=== PATIENT | male | born 1940 | race Caucasian/White ===

== ENCOUNTER 2018-04-11 17:39 | Inpatient (IN) | payer MEDICAID, SELFPAY ==
--- NOTE | 2018-04-11 19:08 | NUR.NOTE ---
Addendum entered by Shahida Page 04/11/18 19:24: This nurse notified BARRETT Mac, no new orders. Pt was showered. This nurse spoke with infection control who said to monitor for loose stools. Nursing medical billing supervisor was notified. Original Note: Nursing Note: Patient found in an enteric contact precautions bathroom. This nurse asked patient to exit room, which he did. Patient was assisted to wash hands with soap and water and door to precautions room was closed shut.
[2018-04-11 19:30] VITALS: BP 146/82; PULSE 59; RESP 20; TEMP 36.5; O2SAT 98
[2018-04-11 23:59] VITALS: BP 165/82; PULSE 53; RESP 17; TEMP 36.1; O2SAT 98
--- NOTE | 2018-04-12 06:51 | NUR.NOTE ---
Nursing Not 04/12/18 06:30 patient attempted to leave on elevator, stating he wants to go across the street to [facility] and rehab. You can not keep me against my will, I feel like I'm in half-way. Explained to patient he would need to talk to the doctors and care management. Patient agreed to go back to his room stating that he will be leaving today
--- NOTE | 2018-04-12 07:28 | HPE_ITS ---
ADMISSION TO SWING BED Estefania Cohen NP - Working with Dr. Hale. REASON FOR ADMISSION Dementia, inability to care for self. ASSESSMENT AND PLAN 1. 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 He is currently not capacity to leave the hospital at this time, this was reinforced by aguila carpenter's consultation. Will continue aspirin 81 mg for the vascular component of the dementia. B12 is normal. We have initia ping thiamine; this will be continued on swing bed status. 2. Hypertension. He was initially started on lisinopril. His previous record indicates that he was on amlodipine in the past. We have re- initiated the amlodipine. Will continue to monitor his blood p ressures. 3. History of tobacco abuse with probable COPD with hyperinflated lungs on chest x-ray. Will contin ue nicotine replacement. 4. Past medical history states BPH. Continue to monitor for any urinary symptoms or urinary retenti on. DISPOSITION He is a full code. Given that he does not have the capacity to make decisions about leaving the [facility], we will have Care Management work on obtaining emergency guardianship. In the longer, term, he will need placement at a long-term care facility for his safety. Care management is working on [facility]. HOSPITAL COURSE Mr. Rosenberg is a 78-year-old male with history of hypertension, hypercholesterolemia, peripheral vas cular disease, benign prostatic hypertrophy, chronic obstructive pulmonary disease and memory impairm ent, who presented to the Emergency Department two days ago on 04/09/2018 after being referred by a co unselor who had concerns about possible suicidal ideation. By the time Mr. Rosenberg presented to the Emergency Department, he did not recall the conversations or statements related to suicidal ideation . In fact, he did not recall the name of the counselor that he was seeing prior to coming into the Em ergency Department. There were concerns in the Emergency Room about his competency. He apparently edwards d been living with a female who is helping him at home, but she has since placed a restraining order on him. It is unclear what occurred for the restraining order to be placed. However, there were con cerns about his mental capacity and ability to make decisions. Neurology was consulted, Dr. Bueno felt that he most likely had Alzheimer's dementia, plus or minus vascular dementia. She notes that he was clearly not suffering from a delirium or encephalopathy at the time of her exam. She recommen ded a psychiatry consult to determine competency and agreed with aspirin 81 mg daily for vascular dem entia component, as well as a thiamine supplementation for what appears to be malnutrition. She did n ot recommended Aricept at the present time due to both bradycardia and lack of predatory animal exterminator plans. She will followup as needed. Psychiatry was consulted. Dr. Monica Grider saw the patient today and her assessment was that the patient does not have the capacity to leave against medical advice, which he has threatened to do be cause he does not have the ability to understand his cognitive impairments and has poor understanding and judgment of where to go or how to care for himself should he leave, which would put him at risk for unintentional harm to himself or others. He has been wondering on the floor. He has shown attempts to leave the floor by elevator. The plan sh ould be to re-direct him through verbal instruction and distraction and physical restraint if indicat ed to prevent him from leaving the floor if all other interventions prove ineffective to keeping him from leaving. It is felt that he does not have evidence of delirium affecting his mental status. Her recommendation is that he would be well served with placement in a long-term care facility and given his tendency to wander; he may need to be in a locked facility. Due to an inability to place him at a facility today, he is instead transitioned to a swing bed 2 status where he will be monitored and k ept safe until he transitioned to a long-term care facility. He has had some hypertension while he has been here at the hospital, and he was started on lisinopril initially. His records from his primary care provider, Dr. Giuseppe Daniel indicate that he as previo usly on amlodipine, this has been restarted. He also reports being a current smoker and has requested nicotine replacement. This has been ordered . Care management is working on placement options, as well as emergency guardianship through the [facility] system. Apparently, there are some legal issues as well for Mr. Rosenberg, as he has a court date t his Monday on 04/13/2018. This maybe in relation to his restraining order that has been placed by the female that he previously resided with. It is unclear what the situation is that required a restrai tammy order to be placed initially. He is unable to provide this information as well as the rest of hi s history accurately. SIGNIFICANT TEST RESULTS BUN mildly elevated at 23, glucose elevated on admission 157, calcium low at 8.4. total protein low a t 6.3, albumin low at 3.3, vitamin B12 was normal at 441. TSH was 6.29, but free T4 was within obdulio l limits at 0.91. His troponin was less than 0.02 on admission. White blood cell count 5.02, red blood cells 4.15, hemoglobin 13.8, hematocrit 41, platelet count 136 . URINALYSIS - His urinalysis was not suspicious for infection on admission. He did have a chest x-ray, which showed no acute abnormality. His lungs were mildly hyperinflated. He did have a head CT on admission, which was negative for acute process. 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 CHRONIC Hypertension. Hypercholesterolemia. Peripheral vascular disease. Benign prostatic hypertrophy. Chronic obstructive pulmonary disease. Memory impairment as listed on his PCP problem list. MEDICATIONS Acetaminophen 325 to 650 mg p.o. q. 4 hours p.r.n. Proventil updraft 2.5 mg updraft q. 2 hours p.r.n. Amlodipine 5 mg p.o. daily. Aspirin 81 mg p.o. daily. Lisinopril 5 mg p.o. daily. Multivitamin with mineral 1 tablet p.o. daily. Nicotrol 10 mg inhaled q. 2 hours p.r.n. NicoDerm CQ 14 mg transdermal daily. MiraLax 17 grams p.o. daily p.r.n. Thiamine 100 mg p.o. daily. REVIEW OF SYSTEMS HEENT - Denies any visual change. He denies any upper respiratory symptoms. No difficulty swallowing . No sore throat. RESPIRATORY - He does have a mild nonproductive chronic cough. He denies shortness of breath or wheez ing. CARDIAC - He denies chest pain, or pressure. No palpitations. GASTROINTESTINAL - He denies abdominal pain or change in his bowel pattern. GENITOURINARY - He denies dysuria, hematuria or incontinence. EXTREMITIES - He denies stiffness or swelling to his joints. No pain. SKIN - He denies any rash or significant lesions. SOCIAL HISTORY He does endorse a tobacco use history. He denies alcohol abuse or drug abuse. PHYSICAL EXAMINATION GENERAL - He does appear older than his stated age. He is pleasant and cooperative. He is in no acute distress. He knows he is in [facility]. He is unable to state the correct date of . He states [birth year] for a birthday. He gives his name properly. He is unclear on the date, inclu ding the month or time of year. HEENT - Pupils are equal, round and reactive to light. He has dentures. No oral lesions. NECK - Neck is supple without lymphadenopathy. No JVD. RESPIRATORY - Respirations are even and unlabored. Lung sounds are clear to auscultation throughout. No rales or wheezes noted. CARDIOVASCULAR - His heart has a regular rate and rhythm with no murmur appreciated. ABDOMEN - Abdomen is thin. He appears malnourished. There is no tenderness on palpation. No masses a ppreciated. Normoactive bowel sounds throughout. EXTREMITIES - Well perfused without clubbing, cyanosis or edema. He has faint pedal pulses bilaterall y. A slight tremor. His index finger on the left shows evidence of trauma, as well as a traumatic am putation of the distal phalanx of his left middle finger. NEUROLOGIC - He moves all four extremities equally. He ambulates freely and unassisted. Speech is chi ar and articulate. Estefania Cohen NP - This case was discussed with Dr. Hale who is in agreement.
[2018-04-12] MEDS: Nicotine 14 MG/24 HR PATCH TD (07:49)
[2018-04-12] MEDS: Lisinopril 5 MG TAB PO (07:50)
[2018-04-12] MEDS: Multivitamin w/Minerals TAB 1 TAB PO (07:50)
[2018-04-12] MEDS: Aspirin 81 MG CHEW PO (07:50)
[2018-04-12] MEDS: amLODIPine 5 MG TAB PO (07:50)
[2018-04-12] MEDS: Acetaminophen 325 MG TAB PO (07:50)
[2018-04-12] MEDS: Thiamine 100 MG TAB PO (07:50)
[2018-04-12 07:51] VITALS: BP 163/90; PULSE 60; RESP 18; TEMP 36.6; O2SAT 98
[2018-04-12] MEDS: Patch Removal 1 EACH TP (08:06)
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
[2018-04-12 11:30] VITALS: BP 107/87; PULSE 56; RESP 20; TEMP 36.5; O2SAT 97
--- NOTE | 2018-04-12 14:53 | PHARADMIT ---
Addendum entered by Shahida Boyd 09/09/18 11:54: VS okay, no labs one time dose of furosemide given (pt had some lower extremity edema per nursing report) transfer to correction tomorrow Original Note: Addendum entered by Shahida Boyd 09/08/18 10:35: No VS or labs no med changes transfer to correction Monday Original Note: Addendum entered by Shahida Boyd 09/07/18 12:13: HR-58 other VS okay, no labs weight-61.8(down) no med changes transfer to correction Monday Original Note: Addendum entered by Tyrel Norris III 09/06/18 11:44: VS-OK No Labs Plan is in place for Monday discharge. Original Note: Addendum entered by Alona Allan 09/05/18 15:10: No VS or labs no med changes Awaiting transfer to correction on 09/10 Original Note: Addendum entered by Shahida Boyd 09/04/18 11:22: VS okay, no labs no med changes Awaiting transfer to correction on 09/10 Original Note: Addendum entered by Shahida Boyd 09/03/18 09:00: No VS or labs no med changes Awaiting transfer to correction on 09/10 Original Note: Addendum entered by Tyrel Norris III 09/02/18 09:00: No -VS No Labs No changes Same Original Note: Addendum entered by Tyrel Norris III 09/01/18 08:59: VS-OK No Labs [facility] [place] on 09/10 Original Note: Addendum entered by Tyrel Norris III 08/31/18 11:40: VS-OK No Labs CM note that patient has been accepted and jarrod be discharge on Monday09/10/2018 Original Note: Addendum entered by Alona Allan 08/30/18 16:00: possible acceptance at facility no changes reported in morning meeting Original Note: Addendum entered by Tyrel Norris III 08/29/18 10:08: No VS, No labs, No Changes CM noted that there is a meeting today with outside facility Original Note: Addendum entered by Tyrel Norris III 08/28/18 11:57: vs_ok no Labs No changes Original Note: Addendum entered by Tyrel Norris III 08/24/18 11:59: VS-OK, No Labs No Changes Original Note: Addendum entered by Tyrel Norris III 08/23/18 15:27: Patient was more difficult yesterday per nursing. VS-OK No Labs No Changes Original Note: Addendum entered by Tyrel Norris III 08/21/18 17:12: VS-OK No Labs No changes Original Note: Addendum entered by Tyrel Norris III 08/20/18 09:52: No VS today Wgt-62.1 kg no changes No Labs Original Note: Addendum entered by Tyrel Alamo Norris [employer] 08/17/18 13:12: VS-OK No Labs No changes CM noted that the Budget process could take up to a month Original Note: Addendum entered by Tyrel Alamo Norrisrita BURT 08/16/18 13:21: VS-OK No Labs No changes Original Note: Addendum entered by Tyrel Alamo Norrisrita BURT 08/15/18 13:24: vS-OK HR-60 No Labs, No med changes Original Note: Addendum entered by Shahida Boyd 08/14/18 12:12: HR-54 other VS okay, no labs no med changes waiting for budget for [facility] to be approved Original Note: Addendum entered by Shahida Boyd 08/13/18 12:21: VS okay, no labs no med changes, flu vaccine given yesterday waiting to hear back about placement to [facility] home Original Note: Addendum entered by Shahida Boyd 08/12/18 11:55: VS okay, no labs no med changes waiting to hear back about placement to [facility] Original Note: Addendum entered by Shahida Boyd 08/11/18 08:58: HR-48 other VS okay, no labs no med changes waiting to hear back about placement to [facility] home Original Note: Addendum entered by Alona Allan 08/09/18 11:17: nothing new per morning meeting vs ok, Original Note: Addendum entered by Alona Allan 08/08/18 10:00: adult correction visit went well awaiting their approval and then a budget needs to be approved which may take a few weeks no changes or issues reported in morning meeting Original Note: Addendum entered by Shahida Boyd 08/07/18 09:31: HR-96 other VS okay, no labs no med changes pt. to visit adult correction Original Note: Addendum entered by Shahida Boyd 08/06/18 15:28: HR-59 other VS okay, no labs no med changes pt. to visit adult correction Monday Original Note: Addendum entered by Tyrel Norris III 08/03/18 10:35: No VS, No Labs No med changes CM noted that patient will be visiting Adult detention on Monday. Original Note: Addendum entered by Tyrel Norris III 08/01/18 12:55: VS-OK No Labs No CHANGES Original Note: Addendum entered by Shahida Boyd 07/31/18 09:04: HR-57 other VS okay, no labs no med changes AFC provider to see afternoon Original Note: Addendum entered by Shahida Boyd 07/30/18 09:08: VS okay, no labs no med changes potential [facility] provider to see Original Note: Addendum entered by Tyrel Norris III 07/29/18 12:10: VS-OK No Labs No changes Original Note: Addendum entered by Tyrel Norris III 07/28/18 11:44: No VS No Labs No changes Original Note: Addendum entered by Tyrel Norris III 07/27/18 12:26: VS-OK No Labs No med changes Original Note: Addendum entered by Tyrel Norris III 07/26/18 11:39: VS-OK No Labs, No word from Pvt half-way Original Note: Addendum entered by Shahida Boyd 07/25/18 11:04: VS okay, no labs no med changes waiting to hear back about decision from correction Original Note: Addendum entered by Tyrel Norris III 07/23/18 10:34: VS-OK Same. detention visit today at 1:30 Original Note: Addendum entered by Alona Allan 07/22/18 11:18: nothing new reported in morning meeting No VS (yesterdays ok) No Labs Monday scheduled visit by a correction Original Note: Addendum entered by Tyrel Norris III 07/20/18 13:28: No VS No Labs CM report Monday visit by a correction corrected note Original Note: Addendum entered by Tyrel Norris III 07/20/18 13:25: Still restlessMD to increase Trazodone today. No VS No Labs CM report Monday visit by a correction. Original Note: Addendum entered by Tyrel Norris III 07/19/18 12:06: MD will write new note today. VS-OK No Labs No changes Wgt-60.7 kg Original Note: Addendum entered by Tyrel Norris III 07/18/18 15:00: No new MD note yet VS-OK No Labs No medication changes Original Note: Addendum entered by Tyrel Jasmeet [facility] 07/16/18 10:37: MD to transcribe new note today. No VS No Labs No med changes Original Note: Addendum entered by Shahida Boyd 07/15/18 09:46: nothing new per morning report HR-56 other VS okay, no labs no med changes Original Note: Addendum entered by Shahida Boyd 07/14/18 09:59: nothing new per morning report no VS or labs no med changes Original Note: Addendum entered by Alona Allan 07/13/18 17:01: going to court Monday for guardianship at 10:30 Original Note: Addendum entered by Alona Allan 07/12/18 16:11: nothing new per morning report vs ok no labs no med changes noted Original Note: Addendum entered by Shahida Boyd 07/11/18 09:01: nutrition consult yesterday noted good PO intake and a 15% weight gain in 3 months no VS or labs no med changes Original Note: Addendum entered by Shahida Boyd 07/10/18 10:54: nothing new per morning report no VS or labs no med changes Original Note: Addendum entered by Shahida Boyd 07/07/18 09:56: nothing new per morning report VS okay no labs no med changes Original Note: Addendum entered by Shahida Boyd 07/06/18 09:25: nothing new per morning report no VS or labs no med changes Original Note: Addendum entered by Tyrel Norris III 07/04/18 09:17: VS-OK No Labs Last BM 07/01 Taking meds as scheduled. No changes. CM still waiting on referrals. Original Note: Addendum entered by Tyrel Norris III 07/03/18 09:32: nothing new per report VS-ok, no labs Last BM 07/01 no med changes Original Note: Addendum entered by Shahida Boyd 07/02/18 10:36: nothing new per morning report VS okay, no labs no med changes Original Note: Addendum entered by Tyrel Norris III 07/01/18 12:37: No VS, No Labs, Wgt-61.3 kg SAT-93% No Changes Original Note: Addendum entered by Tyrel Norris III 06/30/18 11:21: VS-OK SATs-94% No changes Original Note: Addendum entered by Tyrel Norris III 06/29/18 11:21: RT & Nursing noted patients breathing has worsened. MD ordered prn DUONEBS, Symbicort & Spiriva. VS-OK SATs 93% No Labs Last BM 06/26 Original Note: Addendum entered by Tyrel Norris III 06/28/18 15:42: No new changes VS-OK No Labs Same Original Note: Addendum entered by Shahida Boyd 06/26/18 10:51: nothing new per morning report no VS or labs no med changes Original Note: Addendum entered by Shahida Boyd 06/25/18 09:00: VS okay, no labs no med changes Original Note: Addendum entered by Alona Allan 06/24/18 11:04: no changes per morning report vs ok, Original Note: Addendum entered by Tyrel Norris III 06/22/18 12:17: No VS No Labs No BM No Changes, nothing to report Original Note: Addendum entered by Tyrel Norris III 06/21/18 10:34: VS-OK No Labs, No BM No Changes Original Note: Addendum entered by Shahida Boyd 06/20/18 11:56: nothing new per morning report no VS or labs no med changes Original Note: Addendum entered by Shahida Boyd 06/19/18 09:54: nothing new per morning report no VS or labs no med changes Original Note: Addendum entered by Tyrel Norris III 06/18/18 09:39: Complained of abdominal pain < (nursing notes that patient drinks a lot of coffee ) MD has order nightly Protonox PO VS-OK No Labs. No change Original Note: Addendum entered by Shahida Boyd 06/17/18 09:28: nothing new per morning report VS okay, no labs weight-61.5(up) no med changes Original Note: Addendum entered by Shahiad Boyd 06/16/18 09:55: nothing new per morning report VS okay, no labs no med changes Original Note: Addendum entered by Tyrel Norris III 06/14/18 10:35: Financial piece is completed, CM working on placement. Referrals sent. VS-OK No Labs, No Med changes Original Note: Addendum entered by Tyrel Norris III 06/13/18 11:10: VS-OK No Labs Nothing new. No med changes Original Note: Addendum entered by Shahida Boyd 06/12/18 12:33: nothing new per morning report VS okay, no labs no med changes Original Note: Addendum entered by Shahida Boyd 06/11/18 08:43: nothing new per morning report VS okay, no labs no med changes Original Note: Addendum entered by Tyrel Norris III 06/10/18 10:28: Pataient transferred to Room MS.226 for better cadre coverage VS-OK No Labs No BM No Med changes. Original Note: Addendum entered by Tyrel Norris III 06/09/18 10:05: VS-OK No Labs. Last BM 06/05 No changes Original Note: Addendum entered by Tyrel Norris III 06/06/18 11:05: VS-OK No Labs BM yesterday No Changes Original Note: Addendum entered by Shahida Boyd 06/05/18 09:36: nothing new per morning report VS okay, no labs no med changes Original Note: Addendum entered by Shahida Boyd 06/04/18 10:04: nothing new per morning report HR-52 other VS okay, no labs no med changes Original Note: Addendum entered by Tyrel Norris III 06/03/18 10:02: VS-OK Wgt- 60.4 kg No changes, No BM Original Note: Addendum entered by Tyrel Norris III 06/02/18 12:13: No VS No Change, Last BM 08/08 Original Note: Addendum entered by Tyrel Norris III 06/01/18 10:22: VS-OK No Labs, No Changes Original Note: Addendum entered by Tyrel Norris III 05/31/18 09:52: No Changes, VS-OK BM yesterday Original Note: Addendum entered by Alona Allan 05/30/18 15:11: nothing new per morning meeting vs ok Original Note: Addendum entered by Shahida Boyd 05/29/18 16:07: pt. looked more fatigued today, weight is up (59.2). MD to see today VS okay, no labs no med changes so far, no MD note yet Original Note: Addendum entered by Shahida Boyd 05/28/18 11:50: nothing new per morning report VS okay, no labs no med changes Original Note: Addendum entered by Tyrel Norris III 05/25/18 08:49: CM report that [facility]ANCIAL PIECE OF THE PUZZLE. VS-OK No labs. No new changes. Original Note: Addendum entered by Tyrel Norris III 05/24/18 09:16: nothing new per morning report VS-OK No labs no med changes Original Note: Addendum entered by Shahida Boyd 05/23/18 10:34: nothing new per morning report no Vs or labs no med changes Original Note: Addendum entered by Shahida Boyd 05/22/18 10:19: nothing new per morning report hr-55 other VS okay no labs no BM since 05/16 no med changes Original Note: Addendum entered by Alona Allan 05/21/18 15:44: nothing new per morning report Original Note: Addendum entered by Shahida Boyd 05/20/18 10:21: nothing new per morning report HR-56 other VS-okay no labs no med changes no BM since 05/16 Original Note: Addendum entered by Shahida Boyd 05/19/18 11:41: nothing new per morning report VS-okay no labs no med changes Original Note: Addendum entered by Shahida Boyd 05/18/18 17:07: nothing new per morning report hr-53 other VS-okay no labs no med changes Original Note: Addendum entered by Jr BURTTyrel Jasmeet 05/17/18 08:18: Provider saw patient and gave a synopses of patients present situation in her note. Awaiting placement in Adult Care facility. CM working towards this goal. VS-OK No labs, No changes Original Note: Addendum entered by Jr BURTTyrel Jasmeet 05/16/18 11:35: MD to see patient today, write new note. No Cadre today,No VS. No changes. Last BM 05/14 Original Note: Addendum entered by Alona Allan 05/15/18 13:18: nothing new per morning report BM recorded yesterday Original Note: Addendum entered by Shahida Boyd 05/14/18 09:13: nothing new per morning report hr-54 other VS-okay no labs still no BM since the nursing aware, will ask MD if he wants to order some BM meds Original Note: Addendum entered by Tyrel Norris III 05/13/18 10:10: CM & Nursing have been able to coordinate letting patient get outside for some fresh air, without any difficulty getting him back in. VS-OK No Labs, No changes. Original Note: Addendum entered by Tyrel Norris III 05/12/18 11:25: VS-OK No Labs, Still no BM reported. CM working on discharge plan to [facility], and getting [facility] application in place. Original Note: Addendum entered by Tyrel Norris III 05/11/18 11:59: VS-OK No Labs, Last reported BM 05/07 No Changes Original Note: Addendum entered by Tyrel Norris III 05/09/18 14:30: VS-OK No Changes, No Labs, No BM noted since 05/07 No new information. Original Note: Addendum entered by Shahida Boyd 05/08/18 11:11: nothing new per morning report VS-okay no labs no med changes Original Note: Addendum entered by Shahida Boyd 05/07/18 08:48: nothing new per morning report HR-56 other VS-okay no labs no med changes waiting for placement Original Note: Addendum entered by Addis Estrada 05/05/18 12:40: VS-ok, no med changes, ambulates independently multiple loops takes his daily meds, Nicotine patch during the day awaiting placement Original Note: Addendum entered by Tyrel Norris III 05/04/18 11:20: VS-OK No Changes, No Labs, No BM noted since 05/02 No new information. Original Note: Addendum entered by Tyrel Norris III 05/03/18 09:30: VS-OK No Changes, No Labs No new information. Original Note: Addendum entered by Alona Allan 05/02/18 13:24: nothing new per morning report VS-okay no labs no med changes awaiting placement Original Note: Addendum entered by Shahida Boyd 04/30/18 09:18: nothing new per morning report VS-okay no labs no med changes so far today, did not ask for any changes regarding the nicotine patch (see Alona's note below) Original Note: Addendum entered by Alona Allan 04/29/18 09:50: vs ok guardian has been appointed nursing asked if there is a plan to stepdown nicotine dosage. pt has had 12 days on nicotine 14mg patch. per uptodate Longer duration (more than 8 to 10 weeks) of treatment with the nicotine patch may lead to improved smoking cessation rates. Generally, NRT is used until a patient feels that he or she has stabilized as a nonsmoker. The patch may be continued longer, even indefinitely if needed, as NRT is safer than continued smoking. NRT is often used for a longer period in patients with comorbid psychiatric illness or other substance use disorders did not ask for any changes at this time Original Note: Addendum entered by Tyrel Norris III 04/27/18 11:44: HR-56 VS-OK No Labs No changes Original Note: Addendum entered by Edwin Howe 04/26/18 15:54: Has been appointed guardian awaiting placement at [facility] Original Note: Addendum entered by Shahida Boyd 04/25/18 11:07: VS okay no labs no med changes Original Note: Addendum entered by Shahida Boyd 04/24/18 12:01: HR-55 other VS okay no labs no med changes Original Note: Addendum entered by Tyrel Norris III 04/23/18 10:41: HR-60 VS-OK No Labs BM yesterday No changes Original Note: Addendum entered by Shahida Boyd 04/22/18 10:20: HR-53 other VS okay no labs no med changes court meeting about guardianship on 04/24 per CM Original Note: Addendum entered by Jr BURTTyrel Jasmeet 04/18/18 11:29: HR-63 No Labs, Wgt- 54.2 kg BM-04/[address] regarding guardianship. No new note yet. Original Note: Addendum entered by Shahida Boyd 04/17/18 12:24: HR-55 other VS okay No Labs CM still working on guardianship; [facility] is reviewing client per note Pt. was discharged (on accident) then readmitted under the same account so some meds were reordered and the MD was going to look over the meds. Original Note: Addendum entered by Shahida Boyd 04/16/18 12:35: VS-okay No Labs No BMs recorded yet- nursing aware, some BM meds ordered PRN but not yet given No med changes so far CM still working on guardianship; [facility] is reviewing client per CM note Original Note: Addendum entered by Jr BURTTyrel Jasmeet 04/15/18 11:22: No Change CM working on guardianship issues so that he may be placed in the appropriate facility. Referral sent to [facility]. VS-OK No Labs.. No BMs recorded yet Original Note: Addendum entered by Tyrel Norris III 04/14/18 11:18: CM working on guardianship issues so that he may be placed in the appropriate facility. Referral sent to [facility]. VS-OK No Labs.. N BMs recorded yet Original Note: Addendum entered by Alona Allan 04/12/18 14:54: now swingbed CM states pt may be difficult to place pt needs cadre nicotine replacement and bp meds ordered Original Note: Pharmacy Note Subjective Neuro consult shows Alzheimer's dementia but no delirium or encephalopathy. Psych consult to determine if patient is competent to make own decisions. Patient's hsitory is vague as there is little information available. Objective VS-OK No Labs No BM yet Assessment MD holding Home Aricept (per Neurology), Finasteride, Flomax & Pletal. Thiamine started. Plan CM finding placement difficult at this time. Original Note: Admission Pharmacy Clinical Review ALTERED MENTAL STATUS Code Status Full Code Current Weight Wgt- 63.5 kg Renally Cleared and Narrow Therapeutic Index Meds CrCl~ 46.6 mL/min Meds-OK QTc Value / Action Taken QTc- 442 na BP Control, Fever BP- 154/72 Tmax- 37.0C Electrolytes reviewed Na- 142 K+3.7 DVT Prophylaxis ASA Opiate Usage / Scheduled Bowel Regimen Ordered No Yes Plt/SCr for Heparin / Enoxaparin Plts-136 SCr-1.21 INR for Warfarin na H/H stable, WBC/Bands H&H- 13.8/41.0 WBC- 5.02 Antibiotic appropriateness none Cultures and Sensitivities none Surgical ABX d/c within 24 hr na DM control / Insulin Dosing BG-157 Heart Failure (Check EF%) (JEFF's, B-Block, Diuretics) Lisinopril, IV to PO Switch No Home Meds Reviewed Yes Home Meds Not Ordered Pletal, Finasteride, Aricept, Norvasc, Zocor, Anoro-Ellipta Inh, Flomax Comments
[2018-04-13 00:52] VITALS: BP 107/87; PULSE 56; RESP 20; TEMP 36.5; O2SAT 97
[2018-04-13 09:36] VITALS: BP 126/72; PULSE 62; RESP 20; TEMP 35.7; O2SAT 98
[2018-04-13] MEDS: Multivitamin w/Minerals TAB 1 TAB PO (09:41)
[2018-04-13] MEDS: Nicotine 14 MG/24 HR PATCH TD (09:41)
[2018-04-13] MEDS: Thiamine 100 MG TAB PO (09:41)
[2018-04-13] MEDS: Aspirin 81 MG CHEW PO (09:41)
[2018-04-13] MEDS: amLODIPine 5 MG TAB PO (09:41)
[2018-04-13] MEDS: Lisinopril 5 MG TAB PO (09:41)
--- NOTE | 2018-04-13 12:06 | PDOC.CMPRO ---
Date of Service: 04/13/18 Time of Service: 12:06 Care Management Progress Note S/O: Hayes is in his room when CM met with him. Pt states that he wants to leave and is unsure why he is still here at the hospital. He has a cadre present. Hayes is currently SB2 awaiting placement. [place] [employer] is currently attempting to establish a guardian for Hayes. CM spoke with Farooq Del Valle at [employer] regarding guardian status. Work continues on this. CM contacted Hayes's roommate in attempt to find any family or support persons for pt. Roommate states that Hayes does not have any family locally. CM is unable to submit involuntary paperwork until a person has been identified. [facility] is reviewing client. [employer]ERRA spoke with regarding pt's court date today at 12:30pm. Sheriff Palumbo to follow up with joshua and TIERRA. CM attempted contact with [employer] Medicaid nurse; nurse not available until Monday. Will attempt contact again at that time. A: 78 year old male admitted for AMS transition to SB2 for SNF vs AFC placement P: Referral to [employer] William to follow up. terminal make up operator Medicaid application to be submitted once a guardian is placed. CM to continue to work with Farooq Del Valle in regards to guardianship and identify safe discharge plan. CM to provide support to patient, care team ongoing discharge planning and disposition. Plan SNF vs. LTC.
--- NOTE | 2018-04-13 12:10 | CMPROGNOTE_ITS ---
Date of Service: 04/13/18 Time of Service: 12:06 Care Management Progress Note S/O: Hayes is in his room when CM met with him. Pt states that he wants to leave and is unsure why he is still here at the hospital. He has a cadre present. Hayes is currently SB2 awaiting placement. [place] [employer] is currently attempting to establish a guardian for Hayes. CM spoke with Farooq Del Valle at [employer] regarding guardian status. Work continues on this. CM contacted Hayes's roommate in attempt to find any family or support persons for pt. Roommate states that Hayes does not have any family locally. CM is unable to submit involuntary paperwork until a person has been identified. [facility] is reviewing client. TIERRA spoke with regarding pt's court date today at 12:30pm. Sheriff Palumbo to follow up with joshua and TIER[employer]. CM attempted contact with [employer] Medicaid nurse; nurse not available until Monday. Will attempt contact again at that time. A: 78 year old male admitted for AMS transition to SB2 for SNF vs AFC placement P: Referral to [employer] [facility] to follow up. [facility] Medicaid application to be submitted once a guardian is placed. CM to continue to work with Farooq Del Valle in regards to guardianship and identify safe discharge plan. CM to provide support to patient, care team ongoing discharge planning and disposition. Plan SNF vs. LTC.
[2018-04-13 16:06] VITALS: BP 119/65; PULSE 62; RESP 20; TEMP 36.7; O2SAT 94
[2018-04-14] VITALS: BP 133/81; PULSE 52; RESP 20; TEMP 36.1; O2SAT 96
[2018-04-14 07:50] VITALS: BP 149/86; PULSE 54; RESP 20; TEMP 36.1; O2SAT 96
[2018-04-14] MEDS: Aspirin 81 MG CHEW PO (08:10)
[2018-04-14] MEDS: Thiamine 100 MG TAB PO (08:10)
[2018-04-14] MEDS: amLODIPine 5 MG TAB PO (08:10)
[2018-04-14] MEDS: Nicotine 14 MG/24 HR PATCH TD (08:11)
[2018-04-14] MEDS: Multivitamin w/Minerals TAB 1 TAB PO (08:11)
[2018-04-14] MEDS: Lisinopril 5 MG TAB PO (08:11)
[2018-04-14] MEDS: Patch Removal 1 EACH TP (09:38)
[2018-04-14 15:46] VITALS: BP 110/73; PULSE 69; RESP 18; TEMP 36.5; O2SAT 99
[2018-04-14 23:14] VITALS: BP 118/73; PULSE 64; RESP 18; TEMP 36.6; O2SAT 96
[2018-04-15 07:20] VITALS: BP 127/72; PULSE 56; RESP 18; TEMP 36.2; O2SAT 95
[2018-04-15] MEDS: Nicotine 14 MG/24 HR PATCH TD (07:32)
[2018-04-15] MEDS: Thiamine 100 MG TAB PO (07:33)
[2018-04-15] MEDS: Lisinopril 5 MG TAB PO (07:33)
[2018-04-15] MEDS: amLODIPine 5 MG TAB PO (07:33)
[2018-04-15] MEDS: Aspirin 81 MG CHEW PO (07:33)
[2018-04-15] MEDS: Multivitamin w/Minerals TAB 1 TAB PO (07:33)
[2018-04-15] MEDS: Patch Removal 1 EACH TP (07:36)
[2018-04-15 19:53] VITALS: BP 122/71; PULSE 78; RESP 15; TEMP 36.8; O2SAT 95
[2018-04-16 00:50] VITALS: BP 127/74; PULSE 56; RESP 17; TEMP 35.8; O2SAT 97
[2018-04-16 07:17] VITALS: BP 148/82; PULSE 64; RESP 19; TEMP 35.9; O2SAT 98
[2018-04-16] MEDS: Nicotine 14 MG/24 HR PATCH TD (07:55)
[2018-04-16] MEDS: Thiamine 100 MG TAB PO (07:55)
[2018-04-16] MEDS: amLODIPine 5 MG TAB PO (07:55)
[2018-04-16] MEDS: Patch Removal 1 EACH TP (07:55)
[2018-04-16] MEDS: Multivitamin w/Minerals TAB 1 TAB PO (07:55)
[2018-04-16] MEDS: Lisinopril 5 MG TAB PO (07:55)
[2018-04-16] MEDS: Aspirin 81 MG CHEW PO (07:56)
--- NOTE | 2018-04-16 09:17 | PDOC.CMPRO ---
Date of Service: 04/16/18 Time of Service: 09:17 Care Management Progress Note S/O: Hayes is in his room when CM met with him. Pt is in bed eating breakfast. He has a cadre present who is sitting outside of his door. Hayes is currently SB2 awaiting placement. [place] [employer] is currently attempting to establish a guardian for Hayes. TIERRA spoke with Farooq Del Valle at [employer] regarding guardian status. Work continues on this. The [facility] is reviewing client. TIERRA spoke with Chhaya Gonzales from [facility] regarding [facility] Medicaid application. Chhaya advises CM to submit application without pt's signature and make note that he has been deemed incompetent and that guardianship is in the process. Application will be submitted. A: 78 year old male admitted for AMS transition to SB2 for SNF vs AFC placement P: Referral to [employer] to follow up. CM to continue to work with Farooq Del Valle in regards to guardianship and identify safe discharge plan. CM to provide support to patient, care team ongoing discharge planning and disposition. Plan SNF vs. LTC.
--- NOTE | 2018-04-16 10:33 | CMPROGNOTE_ITS ---
Date of Service: 04/16/18 Time of Service: 09:17 Care Management Progress Note S/O: Hayes is in his room when CM met with him. Pt is in bed eating breakfast. He has a cadre present who is sitting outside of his door. Hayes is currently SB2 awaiting placement. [place] [employer] is currently attempting to establish a guardian for Hayes. TIERRA spoke with Farooq Del Valle at [employer] regarding guardian status. Work continues on this. [facility] [employer] is reviewing client. TIERRA spoke with Chhaya Gonzales from [facility] regarding [facility] Medicaid application. Chhaya advises CM to submit application without pt's signature and make note that he has been deemed incompetent and that guardianship is in the process. Application will be submitted. A: 78 year old male admitted for AMS transition to SB2 for SNF vs AFC placement P: Referral to [facility]RA William to follow up. CM to continue to work with Farooq Del Valle in regards to guardianship and identify safe discharge plan. CM to provide support to patient, care team ongoing discharge planning and disposition. Plan SNF vs. LTC.
[2018-04-16 15:55] VITALS: BP 102/68; PULSE 67; RESP 20; TEMP 36.7; O2SAT 96
[2018-04-16 23:25] VITALS: BP 121/79; PULSE 65; RESP 17; TEMP 36.2; O2SAT 100
[2018-04-17 07:24] VITALS: BP 118/70; PULSE 55; RESP 16; TEMP 36.5; O2SAT 95
[2018-04-17] MEDS: amLODIPine 5 MG TAB PO (08:38)
[2018-04-17] MEDS: Lisinopril 5 MG TAB PO (08:38)
[2018-04-17] MEDS: Thiamine 100 MG TAB PO (08:38)
[2018-04-17] MEDS: Multivitamin w/Minerals TAB 1 TAB PO (08:38)
[2018-04-17] MEDS: Nicotine 14 MG/24 HR PATCH TD (08:38)
[2018-04-17] MEDS: Aspirin 81 MG CHEW PO (08:39)
[2018-04-17] MEDS: Patch Removal 1 EACH TP (08:39)
--- NOTE | 2018-04-17 11:37 | PDOC.CMPRO ---
Date of Service: 04/17/18 Time of Service: 11:37 Care Management Progress Note S/O: Hayes is in his room when CM met with him. He has a cadre present who is sitting outside of his door. Hayes is currently SB2 awaiting placement. [place] [employer] is currently attempting to establish a guardian for Hayes. TIERRA spoke with Farooq Del Valle at [employer] regarding guardian status. Farooq Del Valle suggests CM submit emergency petition for guardianship to [facility] as no other suitable candidates for guardianship have been found at this time. Guardianship petition delivered to [facility] [employer] is reviewing client. 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 Per suggestion of Chhaya Gonzales at [facility], application will not have pt's signature on it and a note will be made that pt is unable to sign, has been deemed incompetent and that guardianship is being sought. A: 78 year old male admitted for AMS transition to SB2 for SNF vs AFC placement P: Referral to [facility] William to follow up. CM to continue to work with Farooq Del Valle in regards to guardianship and identify safe discharge plan. CM to provide support to patient, care team ongoing discharge planning and disposition. Plan SNF vs. LTC.
--- NOTE | 2018-04-17 11:41 | CMPROGNOTE_ITS ---
Date of Service: 04/17/18 Time of Service: 11:37 Care Management Progress Note S/O: Hayes is in his room when CM met with him. He has a cadre present who is sitting outside of his door. Hayes is currently SB2 awaiting placement. [place] [employer] is currently attempting to establish a guardian for Hayes. TIERRA spoke with Farooq Del Valle at [employer] regarding guardian status. Farooq Del Valle suggests CM submit emergency petition for guardianship to [facility] as no other suitable candidates for guardianship have been found at this time. Guardianship petition delivered to [facility] [employer] is reviewing client. 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 Per suggestion of Chhaya Gonzales at [facility], application will not have pt's signature on it and a note will be made that pt is unable to sign, has been deemed incompetent and that guardianship is being sought. A: 78 year old male admitted for AMS transition to SB2 for SNF vs AFC placement P: Referral to [facility] William to follow up. CM to continue to work with Farooq Del Valle in regards to guardianship and identify safe discharge plan. CM to provide support to patient, care team ongoing discharge planning and disposition. Plan SNF vs. LTC.
[2018-04-17 15:51] VITALS: BP 102/61; PULSE 59; RESP 18; TEMP 36.5; O2SAT 96
[2018-04-18 00:05] VITALS: BP 90/61; PULSE 56; RESP 16; TEMP 36.6; O2SAT 96
[2018-04-18 08:11] VITALS: BP 123/82; PULSE 63; RESP 18; TEMP 37.1; O2SAT 99
[2018-04-18] MEDS: Thiamine 100 MG TAB PO (08:17)
[2018-04-18] MEDS: Multivitamin w/Minerals TAB 1 TAB PO (08:17)
[2018-04-18] MEDS: Nicotine 14 MG/24 HR PATCH TD (08:17)
[2018-04-18] MEDS: amLODIPine 5 MG TAB PO (08:18)
[2018-04-18] MEDS: Patch Removal 1 EACH TP (08:18)
[2018-04-18] MEDS: Aspirin 81 MG CHEW PO (08:18)
[2018-04-18] MEDS: Lisinopril 5 MG TAB PO (08:18)
--- NOTE | 2018-04-18 11:45 | PDOC.CMPRO ---
Date of Service: 04/18/18 Time of Service: 11:45 Care Management Progress Note S/O: Hayes is in his room in bed when CM met with him. He has a cadre present who is sitting outside of his door. Hayes is currently SB2 awaiting placement. Establishment of an emergency guardian continues to be worked on. Attempt to file paperwork at the [facility] this morning was unsuccessful due to a lack of willing guardian. Kyadeandre NuñezMaynor has come forward as a willing person and paperwork will be refiled with the [facility] today. Hayes expressed interest in visiting a friend, Mali Garvin, at [facility]. Upon consultation, CM informed that Ms. Garvin does not want Hayes visiting and that he is not welcome at [facility] Mediaid application is pending. Pt's car is at [employer] in [facility]. The car reportedly can not be impounded until a guardian is appointed for Hayes. When guardianship is approved, Vonnie Beckford from the [employer] should be contacted and the car will be impounded at that time. Phone number [phone]; email [email or web address]. A: 78 year old male admitted for AMS transition to SB2 for SNF vs AFC placement P: Referral to [facility] William to follow up. CM to continue to work with Farooq Del Valle in regards to guardianship and identify safe discharge plan. CM to provide support to patient, care team ongoing discharge planning and disposition. Plan SNF vs. LTC.
--- NOTE | 2018-04-18 11:52 | CMPROGNOTE_ITS ---
Date of Service: 04/18/18 Time of Service: 11:45 Care Management Progress Note S/O: Hayes is in his room in bed when CM met with him. He has a cadre present who is sitting outside of his door. Hayes is currently SB2 awaiting placement. Establishment of an emergency guardian continues to be worked on. Attempt to file paperwork at the [facility] this morning was unsuccessful due to a lack of willing guardian. Kyadeandre NuñezMaynor has come forward as a willing person and paperwork will be refiled with the [facility] today. Hayes expressed interest in visiting a friend, Mali Garvin, at [facility]. Upon consultation, CM informed that Ms. Garvin does not want Hayes visiting and that he is not welcome at [facility] Media[employer] application is pending. Pt's car is at [employer] in [facility]. The car reportedly can not be impounded until a guardian is appointed for Hayes. When guardianship is approved, Vonnie Beckford from the Agency [employer] should be contacted and the car will be impounded at that time. Phone number [phone]; email [email or web address]. A: 78 year old male admitted for AMS transition to SB2 for SNF vs AFC placement P: Referral to [facility]ERRA William to follow up. CM to continue to work with Farooq Del Valle in regards to guardianship and identify safe discharge plan. CM to provide support to patient, care team ongoing discharge planning and disposition. Plan SNF vs. LTC.
[2018-04-18 15:58] VITALS: BP 104/70; PULSE 56; RESP 18; TEMP 36.2; O2SAT 96
[2018-04-18 23:48] VITALS: BP 144/84; PULSE 66; RESP 20; TEMP 36.8; O2SAT 98
[2018-04-19] MEDS: Lisinopril 5 MG TAB PO (08:18)
[2018-04-19] MEDS: Multivitamin w/Minerals TAB 1 TAB PO (08:18)
[2018-04-19] MEDS: Aspirin 81 MG CHEW PO (08:18)
[2018-04-19] MEDS: amLODIPine 5 MG TAB PO (08:18)
[2018-04-19] MEDS: Thiamine 100 MG TAB PO (08:18)
[2018-04-19] MEDS: Patch Removal 1 EACH TP (08:18)
[2018-04-19] MEDS: Nicotine 14 MG/24 HR PATCH TD (08:18)
[2018-04-19 08:26] VITALS: BP 135/76; PULSE 67; RESP 19; TEMP 36; O2SAT 95
--- NOTE | 2018-04-19 10:00 | PDOC.CMACT ---
Date of Service: 04/19/18 Time of Service: 10:00 Care Management Activity Note Mina enjoys walking in the halls, watching TV, as well as visiting with staff. Mina has been offered the activity cart during his swingbed stay, at this time he has not wanted anything from the cart, as he enjoys talking with staff. Reiki, therapy dogs, and music therapy has also been offered to Mina throughout his swingbed stay. Mina is a swingbed at this time while awaiting SNF vs AFC placement. Guardianship paperwork filed 04/18/18, currently awaiting the courts decision.
--- NOTE | 2018-04-19 10:21 | CMACTNOTE_ITS ---
Date of Service: 04/19/18 Time of Service: 10:00 Care Management Activity Note Mina enjoys walking in the halls, watching TV, as well as visiting with staff. Mina has been offered the activity cart during his swingbed stay, at this time he has not wanted anything from the cart, as he enjoys talking with staff. Reiki , therapy dogs, and music therapy has also been offered to Mina throughout his swingbed stay. Mina is a swingbed at this time while awaiting SNF vs AFC placement. Guardianship paperwork filed 04/18/18, currently awaiting the courts decision.
--- NOTE | 2018-04-19 14:23 | NUR.NOTE ---
Nursing Note: Pt requested his wallet. Wallet was in safe. Nursing gave Pt his wallet back. No money was in the wallet, just cards.
[2018-04-19 16:16] VITALS: BP 107/68; PULSE 63; RESP 19; TEMP 36.2; O2SAT 97
[2018-04-20 00:34] VITALS: BP 129/68; PULSE 61; RESP 18; TEMP 36.2; O2SAT 98
[2018-04-20] MEDS: Nicotine 14 MG/24 HR PATCH TD (07:28)
[2018-04-20] MEDS: Multivitamin w/Minerals TAB 1 TAB PO (07:29)
[2018-04-20] MEDS: Thiamine 100 MG TAB PO (07:29)
[2018-04-20] MEDS: amLODIPine 5 MG TAB PO (07:29)
[2018-04-20] MEDS: Lisinopril 5 MG TAB PO (07:29)
[2018-04-20] MEDS: Aspirin 81 MG CHEW PO (07:30)
[2018-04-20] MEDS: Patch Removal 1 EACH TP (07:31)
[2018-04-20 08:00] VITALS: BP 116/71; PULSE 63; RESP 18; TEMP 36.7; O2SAT 96
--- NOTE | 2018-04-20 14:20 | PDOC.CMPRO ---
Date of Service: 04/20/18 Time of Service: 14:20 Care Management Progress Note S/O: Hayes is in his room in bed when CM met with him. He has a cadre present in his room. Hayes is currently SB2 awaiting placement. Establishment of an emergency guardian continues to be worked on. Kya Mcguire has come forward as a willing person and paperwork was filed at [facility] on 04/18/2018. A hearing regarding emergency guardianship will happen at the [facility] on 04/24/2018 at 1400. Pt's car is at [employer] in [facility]. The car reportedly can not be impounded until a guardian is appointed for Hayes. When guardianship is approved, Vonnie Beckford from the Agency [employer] should be contacted and the car will be impounded at that time. Phone number [phone]; email [email or web address]. LTC Medicaid application is pending. Referrals sent to the [facility] and [facility] for placement following guardianship approval. The [facility] has declined pt due to elopement concerns. [facility] referral is pending. A: 78 year old male admitted for AMS transition to SB2 for SNF vs AFC placement P: Referral pending to [facility]; CM to follow up. CM to continue to work with Farooq Del Valle in regards to guardianship and identify safe discharge plan. CM to provide support to patient, care team ongoing discharge planning and disposition. Plan SNF vs. LTC.
--- NOTE | 2018-04-20 14:33 | CMPROGNOTE_ITS ---
Date of Service: 04/20/18 Time of Service: 14:20 Care Management Progress Note S/O: Hayes is in his room in bed when CM met with him. He has a cadre present in his room. Hayes is currently SB2 awaiting placement. Establishment of an emergency guardian continues to be worked on. Kya Mcguire has come forward as a willing person and paperwork was filed at [facility] on 04/18/2018. A hearing regarding emergency guardianship will happen at the [facility] on 2017 at 1400. Pt's car is at [employer] in [facility]. The car reportedly can not be impounded until a guardian is appointed for Hayes. When guardianship is approved, Vonnie Beckford from the Agency [employer] should be contacted and the car will be impounded at that time. Phone number [phone]; email [email or web address]. LTC Medicaid application is pending. Referrals sent to the [facility] and [facility] for placement following guardianship approval. The [facility] has declined pt due to elopement concerns. [facility] referral is pending. A: 78 year old male admitted for AMS transition to SB2 for SNF vs AFC placement P: Referral pending to [facility]; CM to follow up. CM to continue to work with Farooq Del Valle in regards to guardianship and identify safe discharge plan. CM to provide support to patient, care team ongoing discharge planning and disposition. Plan SNF vs. LTC.
[2018-04-21 07:10] VITALS: BP 125/70; PULSE 59; RESP 14; TEMP 36.1; O2SAT 98
[2018-04-21] MEDS: Multivitamin w/Minerals TAB 1 TAB PO (09:18)
[2018-04-21] MEDS: amLODIPine 5 MG TAB PO (09:18)
[2018-04-21] MEDS: Nicotine 14 MG/24 HR PATCH TD (09:18)
[2018-04-21] MEDS: Thiamine 100 MG TAB PO (09:18)
[2018-04-21] MEDS: Lisinopril 5 MG TAB PO (09:18)
[2018-04-21] MEDS: Aspirin 81 MG CHEW PO (09:18)
[2018-04-21] MEDS: Patch Removal 1 EACH TP (09:21)
[2018-04-22 07:26] VITALS: BP 120/73; PULSE 53; RESP 16; TEMP 35.9; O2SAT 93
[2018-04-22] MEDS: Thiamine 100 MG TAB PO (09:01)
[2018-04-22] MEDS: amLODIPine 5 MG TAB PO (09:01)
[2018-04-22] MEDS: Nicotine 14 MG/24 HR PATCH TD (09:01)
[2018-04-22] MEDS: Lisinopril 5 MG TAB PO (09:01)
[2018-04-22] MEDS: Aspirin 81 MG CHEW PO (09:01)
[2018-04-22] MEDS: Multivitamin w/Minerals TAB 1 TAB PO (09:01)
[2018-04-22] MEDS: Patch Removal 1 EACH TP (09:06)
--- NOTE | 2018-04-22 14:44 | CMPROGNOTE_ITS ---
Date of Service: 04/22/18 Time of Service: 14:43 Care Management Progress Note S/O: Hayes is in his room in bed when CM met with him. He has a cadre present in his room. Hayes states he would be doing better if he was let out of correction. He states he knows he has something to do but does not know what it is. Hayes is re-directable during conversation. Hayes is currently SB2 awaiting placement. Establishment of an emergency guardian continues to be worked on. Kya Mcguire has come forward as a willing person and paperwork was filed at [facility] on 04/18/2018. A hearing regarding emergency guardianship will happen at the [facility] on 04/24/2018 at 1400. Pt's car is at [employer] in [facility]. The car reportedly can not be impounded until a guardian is appointed for Hayes. When guardianship is approved, Vonnie Beckford from the Agency [employer] should be contacted and the car will be impounded at that time. Phone number [phone]; email [email or web address]. LT Medicaid application is pending. Referrals sent to the [facility] and [facility] for placement following guardianship approval. The [facility] has declined pt due to elopement concerns. [facility] referral is pending. A: 78 year old male admitted for AMS transition to SB2 for SNF vs AFC placement P: Referral pending to [facility]; CM to follow up. CM to continue to work with Farooq Del Valle in regards to guardianship and identify safe discharge plan. CM to provide support to patient, care team ongoing discharge planning and disposition. Plan SNF vs. LTC.
[2018-04-23 07:45] VITALS: BP 113/79; PULSE 60; RESP 18; TEMP 36.6; O2SAT 97
[2018-04-23] MEDS: Nicotine 14 MG/24 HR PATCH TD (08:21)
[2018-04-23] MEDS: Thiamine 100 MG TAB PO (08:22)
[2018-04-23] MEDS: Multivitamin w/Minerals TAB 1 TAB PO (08:22)
[2018-04-23] MEDS: Aspirin 81 MG CHEW PO (08:22)
[2018-04-23] MEDS: amLODIPine 5 MG TAB PO (08:22)
[2018-04-23] MEDS: Lisinopril 5 MG TAB PO (08:22)
[2018-04-23] MEDS: Patch Removal 1 EACH TP (08:23)
--- NOTE | 2018-04-23 14:12 | PDOC.CMPRO ---
Date of Service: 04/23/18 Time of Service: 14:12
--- NOTE | 2018-04-23 14:31 | PDOC.CMPRO ---
Date of Service: 04/23/18 Time of Service: 14:31 Care Management Progress Note S/O: CM attempted to visit with Hayes three times today and pt was sleeping each time. Hayse is currently SB2 awaiting placement. Establishment of an emergency guardian continues to be worked on. Kya Mcguire has come forward as a willing person and paperwork was filed at [facility] on 04/18/2018. A hearing regarding emergency guardianship will happen at the [facility] on 04/24/2018 at 1400. Pt's car is at [employer] in [facility]. The car reportedly can not be impounded until a guardian is appointed for Hayes. When guardianship is approved, Vonnie Beckford from the [employer] should be contacted and the car will be impounded at that time. Phone number [phone]; email [email or web address]. LTC Medicaid application is pending. Referral to [facility] is pending for placement following guardianship approval. [facility] has declined pt due to elopement concerns. A: 78 year old male admitted for AMS transition to SB2 for SNF vs AFC placement P: Referral pending to [facility]; CM to follow up. CM to continue to work with Farooq Ivon in regards to guardianship and identify safe discharge plan. CM to provide support to patient, care team ongoing discharge planning and disposition. Plan SNF vs. LTC.
--- NOTE | 2018-04-23 14:34 | CMPROGNOTE_ITS ---
Date of Service: 04/23/18 Time of Service: 14:31 Care Management Progress Note S/O: CM attempted to visit with Hayes three times today and pt was sleeping each time. Hayes is currently SB2 awaiting placement. Establishment of an emergency guardian continues to be worked on. Kya Mcguire has come forward as a willing person and paperwork was filed at [facility] on 04/18/2018. A hearing regarding emergency guardianship will happen at the [facility] on 2017 at 1400. Pt's car is at [employer] in [facility]. The car reportedly can not be impounded until a guardian is appointed for Hayes. When guardianship is approved, Vonnie Beckford from the Agency [employer] should be contacted and the car will be impounded at that time. Phone number [phone]; email [email or web address]. LTC Medicaid application is pending. Referral to [facility] is pending for placement following guardianship approval. [facility] has declined pt due to elopement concerns. A: 78 year old male admitted for AMS transition to SB2 for SNF vs AFC placement P: Referral pending to [facility]; CM to follow up. CM to continue to work with Farooq Ivon in regards to guardianship and identify safe discharge plan. CM to provide support to patient, care team ongoing discharge planning and disposition. Plan SNF vs. LTC.
[2018-04-24 07:20] VITALS: BP 121/81; PULSE 55; RESP 16; TEMP 36.1; O2SAT 98
[2018-04-24] MEDS: Nicotine 14 MG/24 HR PATCH TD (08:35)
[2018-04-24] MEDS: Patch Removal 1 EACH TP (08:36)
[2018-04-24] MEDS: Lisinopril 5 MG TAB PO (08:36)
[2018-04-24] MEDS: Thiamine 100 MG TAB PO (08:36)
[2018-04-24] MEDS: amLODIPine 5 MG TAB PO (08:36)
[2018-04-24] MEDS: Aspirin 81 MG CHEW PO (08:36)
[2018-04-24] MEDS: Multivitamin w/Minerals TAB 1 TAB PO (08:36)
--- NOTE | 2018-04-24 14:55 | PDOC.CMPRO ---
Date of Service: 04/24/18 Time of Service: 14:55 Care Management Progress Note S/O: CM met with Hayes in his room. Pt was presented at interdisciplinary rounds. Hayes is currently SB2 awaiting placement. A cadre is at bedside. A hearing for guardianship took place this afternoon at 1400 at the [facility]. CM and Kya Mcguire in attendance. Kyadeandre Mcguire has come forward as a willing person and guardianship has been granted to her. Awaiting final order from [facility]; hopefully within a few days. Pt's car is at [facility] in [facility]. The car reportedly can not be impounded until a guardian is appointed for Hayes. When guardianship is approved, Vonnie Beckford from the [employer] should be contacted and the car will be impounded at that time. Phone number [phone]; email [email or web address]. CM spoke with Chhaya Gonzales today. LTC Medicaid application needs to be resubmitted with guardian's signature, once final guardianship order is received. Referral to [facility] is pending for placement following guardianship approval. CM will follow up with [facility] once guardianship paperwork has been received. [facility] has declined pt due to elopement concerns. [facility]. A: 78 year old male admitted for AMS transition to SB2 for SNF vs AFC placement P: Referral pending to [facility]; CM to follow up once guardianship is finalized. LTC Medicaid application will be resubmitted with finalized guardianship. Kya states that she will call CM as soon as she has written approval and that she can sign paperwork at that time. CM to provide support to patient, care team ongoing discharge planning and disposition. Plan SNF vs. LTC.
--- NOTE | 2018-04-24 15:19 | CMPROGNOTE_ITS ---
Date of Service: 04/24/18 Time of Service: 14:55 Care Management Progress Note S/O: CM met with Hayes in his room. Pt was presented at interdisciplinary rounds. Hayes is currently SB2 awaiting placement. A cadre is at bedside. A hearing for guardianship took place this afternoon at 1400 at the [facility]. CM and Kay Mcguire in attendance. Kyadeandre Mcguire has come forward as a willing person and guardianship has been granted to her. Awaiting final order from [facility]; hopefully within a few days. Pt's car is at [employer] in [facility]. The car reportedly can not be impounded until a guardian is appointed for Hayes. When guardianship is approved, Vonnie Beckford from the [employer] should be contacted and the car will be impounded at that time. Phone number [phone]; email [email or web address]. CM spoke with Chhaya Gonzales today. LTC Medicaid application needs to be resubmitted with guardian's signature, once final guardianship order is received. Referral to [facility] is pending for placement following guardianship approval. CM will follow up with [facility] once guardianship paperwork has been received. [facility] has declined pt due to elopement concerns. [facility]. A: 78 year old male admitted for AMS transition to SB2 for SNF vs AFC placement P: Referral pending to [facility]; CM to follow up once guardianship is finalized. LTC Medicaid application will be resubmitted with finalized guardianship. Kya states that she will call CM as soon as she has written approval and that she can sign paperwork at that time. CM to provide support to patient, care team ongoing discharge planning and disposition. Plan SNF vs. LTC.
[2018-04-25 07:25] VITALS: BP 105/66; PULSE 61; RESP 18; TEMP 36.7; O2SAT 96
[2018-04-25] MEDS: Nicotine 14 MG/24 HR PATCH TD (09:07)
[2018-04-25] MEDS: Thiamine 100 MG TAB PO (09:09)
[2018-04-25] MEDS: Lisinopril 5 MG TAB PO (09:09)
[2018-04-25] MEDS: Multivitamin w/Minerals TAB 1 TAB PO (09:09)
[2018-04-25] MEDS: amLODIPine 5 MG TAB PO (09:09)
[2018-04-25] MEDS: Aspirin 81 MG CHEW PO (09:09)
[2018-04-25] MEDS: Patch Removal 1 EACH TP (09:10)
[2018-04-25 23:00] VITALS: PULSE 63; RESP 16
[2018-04-26 07:30] VITALS: BP 117/69; PULSE 57; RESP 18; TEMP 36.6; O2SAT 98
[2018-04-26] MEDS: Nicotine 14 MG/24 HR PATCH TD (07:48)
[2018-04-26] MEDS: Multivitamin w/Minerals TAB 1 TAB PO (07:49)
[2018-04-26] MEDS: Lisinopril 5 MG TAB PO (07:49)
[2018-04-26] MEDS: Aspirin 81 MG CHEW PO (07:49)
[2018-04-26] MEDS: Thiamine 100 MG TAB PO (07:49)
[2018-04-26] MEDS: amLODIPine 5 MG TAB PO (07:49)
[2018-04-26 07:52] VITALS: PULSE 60
[2018-04-26] MEDS: Patch Removal 1 EACH TP (09:22)
--- NOTE | 2018-04-26 13:31 | PDOC.CMACT ---
Date of Service: 04/26/18 Time of Service: 13:32 Care Management Activity Note Mina enjoys walking in the halls, watching TV, as well as visiting with staff. Mina has been offered the activity cart during his swingbed stay, at this time he has not wanted anything from the cart, as he enjoys talking with staff. Reiki, therapy dogs, and music therapy has also been offered to Mina throughout his swingbed stay. Mina is a swingbed at this time while awaiting SNF vs AFC placement. Mina has been appointed a guardian which is KATHERYN Boland,.
--- NOTE | 2018-04-26 13:34 | CMACTNOTE_ITS ---
Date of Service: 04/26/18 Time of Service: 13:32 Care Management Activity Note Mina enjoys walking in the halls, watching TV, as well as visiting with staff. Mina has been offered the activity cart during his swingbed stay, at this time he has not wanted anything from the cart, as he enjoys talking with staff. Reiki , therapy dogs, and music therapy has also been offered to Mina throughout his swingbed stay. Mina is a swingbed at this time while awaiting SNF vs AFC placement. Mina has been appointed a guardian which is KATHERYN Boland,.
[2018-04-27 07:20] VITALS: BP 135/84; PULSE 56; RESP 16; TEMP 36.2; O2SAT 95
[2018-04-27] MEDS: amLODIPine 5 MG TAB PO (08:41)
[2018-04-27] MEDS: Lisinopril 5 MG TAB PO (08:41)
[2018-04-27] MEDS: Thiamine 100 MG TAB PO (08:41)
[2018-04-27] MEDS: Aspirin 81 MG CHEW PO (08:41)
[2018-04-27] MEDS: Nicotine 14 MG/24 HR PATCH TD (08:41)
[2018-04-27] MEDS: Multivitamin w/Minerals TAB 1 TAB PO (08:42)
[2018-04-27] MEDS: Patch Removal 1 EACH TP (08:42)
--- NOTE | 2018-04-27 10:38 | PDOC.CMPRO ---
Date of Service: 04/27/18 Time of Service: 10:38 Care Management Progress Note S/O: CM met with Hayes in his room. Pt was presented at interdisciplinary rounds. Hayes is currently SB2 awaiting placement. A hearing for guardianship took place 04/24/2018 afternoon at 1400 at the [facility]. TIERRA and Kya Mcguire in attendance. Final order pending. Pt's car is at [employer] in [facility]. The car reportedly can not be impounded until a guardian is appointed for Hayes. When guardianship is approved, Vonnie Beckford from the Agency [employer] should be contacted and the car will be impounded at that time. Phone number [phone]; email [email or web address]. CM phoned Amberly at [facility] regarding pt's Long-Term Medicaid application. Voice mail left requesting the application be kept open; guardianship information to be sent when final order is in place. Email sent to Referral to [facility] is pending for placement following guardianship approval. CM will follow up with [facility] once guardianship paperwork has been received. [facility] has declined pt due to elopement concerns. . [facility] declined. A: 78 year old male admitted for AMS transition to SB2 for SNF vs AFC placement P: [facility]; CM to follow up once guardianship is finalized. Kya states that she will call CM as soon as she has written approval and that she can sign any necessary paperwork at that time. CM to provide support to patient, care team ongoing discharge planning and disposition. Plan SNF vs. LTC.
--- NOTE | 2018-04-27 11:20 | PDOC.CMPRO ---
Date of Service: 04/27/18 Time of Service: 11:21
--- NOTE | 2018-04-27 11:43 | CMPROGNOTE_ITS ---
Date of Service: 04/27/18 Time of Service: 10:38 Care Management Progress Note S/O: CM met with Hayes in his room. Pt was presented at interdisciplinary rounds. Hayes is currently SB2 awaiting placement. A hearing for guardianship took place 04/24/2018 afternoon at 1400 at the [facility]. TIERRA and Kya Mcguire in attendance. Final order pending. Pt's car is at [employer] in [facility]. The car reportedly can not be impounded until a guardian is appointed for Hayes. When guardianship is approved, Vonnie Beckford from the Agency of Human Services should be contacted and the car will be impounded at that time. Phone number [phone]; email [email or web address]. CM phoned Amberly at [facility] regarding pt's Mcfp Medicaid application. Voice mail left requesting the application be kept open; guardianship information to be sent when final order is in place. Email sent to Referral to [facility] is pending for placement following guardianship approval. CM will follow up with [facility] once guardianship paperwork has been received. [facility] has declined pt due to elopement concerns. . [facility] has declined. A: 78 year old male admitted for AMS transition to SB2 for SNF vs AFC placement P: Referral pending to [facility]; CM to follow up once guardianship is finalized. Kya states that she will call CM as soon as she has written approval and that she can sign any necessary paperwork at that time. CM to provide support to patient, care team ongoing discharge planning and disposition. Plan SNF vs. LTC.
--- NOTE | 2018-04-27 14:27 | SATEXT_ITS ---
Assessment: Mr. Rosenberg is eating 100% of his meals. He has had 9% weight gain since admission which is significant. His BMI is now 19 which is WNL. He is 68 and 56.8 kg now. He is on a regular nutrition therapy. He was admitted with dementia and inability to care for himself and was likely losing weight as he was unable to provide adequate nutrition for himself. At this time , he is regaining an adequate nutritional status. Nutritional Diagnosis: Increased nutrition risk related inability to care for self. Intervention: We will continue provide nutrient dense meals for Mr. Rosenberg and encourage adequate PO. Monitoring and Evaluation: 1. Will continue to monitor PO intake and weight. 2. Will evaluate nutrition care plan ongoing and adjust as needed.
[2018-04-28 08:30] VITALS: BP 134/76; PULSE 62; RESP 21; TEMP 36.8; O2SAT 96
[2018-04-28] MEDS: Nicotine 14 MG/24 HR PATCH TD (08:58)
[2018-04-28] MEDS: Aspirin 81 MG CHEW PO (08:59)
[2018-04-28] MEDS: amLODIPine 5 MG TAB PO (08:59)
[2018-04-28] MEDS: Thiamine 100 MG TAB PO (08:59)
[2018-04-28] MEDS: Lisinopril 5 MG TAB PO (09:00)
[2018-04-28] MEDS: Multivitamin w/Minerals TAB 1 TAB PO (09:00)
[2018-04-29 08:06] VITALS: BP 122/81; PULSE 58; RESP 19; TEMP 36.3; O2SAT 97
[2018-04-29] MEDS: Multivitamin w/Minerals TAB 1 TAB PO (08:35)
[2018-04-29] MEDS: Thiamine 100 MG TAB PO (08:35)
[2018-04-29] MEDS: Aspirin 81 MG CHEW PO (08:35)
[2018-04-29] MEDS: amLODIPine 5 MG TAB PO (08:35)
[2018-04-29] MEDS: Lisinopril 5 MG TAB PO (08:35)
[2018-04-29] MEDS: Nicotine 14 MG/24 HR PATCH TD (08:36)
[2018-04-29] MEDS: Patch Removal 1 EACH TP (08:36)
[2018-04-30 07:42] VITALS: BP 116/75; PULSE 54; RESP 19; TEMP 35.7; O2SAT 95
[2018-04-30] MEDS: amLODIPine 5 MG TAB PO (08:12)
[2018-04-30] MEDS: Thiamine 100 MG TAB PO (08:12)
[2018-04-30] MEDS: Lisinopril 5 MG TAB PO (08:13)
[2018-04-30] MEDS: Aspirin 81 MG CHEW PO (08:13)
[2018-04-30] MEDS: Multivitamin w/Minerals TAB 1 TAB PO (08:13)
--- NOTE | 2018-04-30 12:27 | PDOC.CMPRO ---
Date of Service: 04/30/18 Time of Service: 12:27 Care Management Progress Note S/O: CM met with Hayes in his room. Hayes is currently SB2 awaiting placement. A hearing for guardianship took place 04/24/2018 afternoon at 1400 at the [facility]. Guardianship has been approved for Kya Mcguire from the Office of Public Guardian. Kya emailed final order to CM this morning. Pt's car is at [employer] in [facility] and will be impounded. Message left for Vonnie Beckford on 04/27/2018 from the Agency of Human Services regarding guardianship approval. CM phoned Amberly at [facility] regarding pt's Senior Care Medicaid application on 04/27/2018. Voice mail left requesting the application be kept open. CM to follow up with guardian, Kya. [facility]. CM spoke with Carito at [facility] regarding possible placement. Carito is considering Bill and will phone CM regarding time she can come and meet him. [facility] has declined pt due to elopement concerns. . [facility] has declined. A: 78 year old male admitted for AMS transition to SB2 for SNF vs AFC placement P: Referral pending to [facility] and [facility]. CM to provide support to patient and care team, ongoing discharge planning and disposition. Plan SNF vs. LTC.
--- NOTE | 2018-04-30 12:36 | CMPROGNOTE_ITS ---
Date of Service: 04/30/18 Time of Service: 12:27 Care Management Progress Note S/O: CM met with Hayes in his room. Hayes is currently SB2 awaiting placement. A hearing for guardianship took place 04/24/2018 afternoon at 1400 at the [facility]. Guardianship has been approved for Kya Mcguire from the Office of Public Guardian. Kya emailed final order to CM this morning. Pt's car is at [employer] in [facility] and will be impounded. Message left for Vonnie Beckford on 04/27/2018 from the Agency of Human Services regarding guardianship approval. CM phoned Amberly at [facility] regarding pt' s Residential Medicaid application on 04/27/2018. Voice mail left requesting the application be kept open. CM to follow up with guardian, Kya. [facility]. CM spoke with Carito at [facility] regarding possible placement. Carito is considering Bill and will phone CM regarding time she can come and meet him. [facility] has declined pt due to elopement concerns. . [facility] has declined. A: 78 year old male admitted for AMS transition to SB2 for SNF vs AFC placement P: Referral pending to [facility] and [facility]. CM to provide support to patient and care team, ongoing discharge planning and disposition. Plan SNF vs. LTC.
[2018-05-01 07:25] VITALS: BP 113/73; PULSE 58; RESP 16; TEMP 36.4; O2SAT 96
[2018-05-01] MEDS: Milk of Magnesia 30 ML CUP PO (09:01)
[2018-05-01] MEDS: Thiamine 100 MG TAB PO (09:02)
[2018-05-01] MEDS: Aspirin 81 MG CHEW PO (09:02)
[2018-05-01] MEDS: Lisinopril 5 MG TAB PO (09:02)
[2018-05-01] MEDS: Multivitamin w/Minerals TAB 1 TAB PO (09:02)
[2018-05-01] MEDS: amLODIPine 5 MG TAB PO (09:02)
--- NOTE | 2018-05-01 10:57 | PDOC.CMPRO ---
Date of Service: 05/01/18 Time of Service: 10:57 Care Management Progress Note S/O: CM met with Hayes in his room. Hayes is currently SB2 awaiting placement. Pt is getting a shave when CM visited this morning. Mina is engaged in conversation and is in good spirits though confused regarding the day of the week and where he is. Wm Mcguire and CM met with Mina at bedside. Kya and CM discussed Kya's role and the issues that she could assist Mina with. Pt is agreeable to have Kya work with him and to visit again. Mina reported that he is worried about his car, and Kya affirmed that she would be working on finding a place to store it. A hearing for guardianship took place 04/24/2018 afternoon at 1400 at the [facility]. Guardianship has been approved for Kya Mcguire from the Office of Public Guardian. Pt's car is at [employer] in [facility] and will be impounded. Message left for Vonnie Beckford on 04/27/2018 from the Agency of Human Services regarding guardianship approval. Kya to follow up. CM phoned Amberly at [facility] regarding pt's Associate Dean Of Students Medicaid application on 04/27/2018. Voice mail left requesting the application be kept open. TIERRA to follow up with Kya mcdonald. Kya to follow up. Referral to [facility] is pending for placement. CM spoke with Carito at [facility] regarding possible placement. Carito is considering Bill and will phone CM regarding time she can come and meet him. [facility] has declined pt due to elopement concerns. [facility] has declined. A: 78 year old male admitted for AMS transition to SB2 for SNF vs AFC placement P: Referral pending to [facility] and [facility]. CM to provide support to patient and care team, ongoing discharge planning and disposition. Plan SNF vs. LTC.
--- NOTE | 2018-05-01 11:00 | CMPROGNOTE_ITS ---
Date of Service: 05/01/18 Time of Service: 10:57 Care Management Progress Note S/O: CM met with Hayes in his room. Hayes is currently SB2 awaiting placement. Pt is getting a shave when CM visited this morning. Mina is engaged in conversation and is in good spirits though confused regarding the day of the week and where he is. Wm Mcguire and CM met with Mina at bedside. Kya and CM discussed Kya's role and the issues that she could assist Mina with. Pt is agreeable to have Kya work with him and to visit again. Mina reported that he is worried about his car, and Kya affirmed that she would be working on finding a place to store it. A hearing for guardianship took place 04/24/2018 afternoon at 1400 at the [facility]. Guardianship has been approved for Kya Mcguire from the Office of Public Guardian. Pt's car is at [employer] in [facility] and will be impounded. Message left for Vonnie Beckford on 04/27/2018 from the Agency of Human Services regarding guardianship approval. Kya to follow up. CM phoned Amberly at [facility] regarding pt's Compatibility Test Engineer Medicaid application on 2017. Voice mail left requesting the application be kept open. TIERRA to follow up with Kya mcdonald. Kya to follow up. Referral to [facility] is pending for placement. CM spoke with Carito at [facility] regarding possible placement. Carito is considering Bill and will phone CM regarding time she can come and meet him. [facility] has declined pt due to elopement concerns. [facility] has declined. A: 78 year old male admitted for AMS transition to SB2 for SNF vs AFC placement P: Referral pending to [facility] and [facility]. CM to provide support to patient and care team, ongoing discharge planning and disposition. Plan SNF vs. LTC.
[2018-05-02 07:30] VITALS: BP 114/75; PULSE 52; RESP 18; TEMP 35.8; O2SAT 95
[2018-05-02] MEDS: amLODIPine 5 MG TAB PO (09:40)
[2018-05-02] MEDS: Multivitamin w/Minerals TAB 1 TAB PO (09:40)
[2018-05-02] MEDS: Nicotine 14 MG/24 HR PATCH TD (09:40)
[2018-05-02] MEDS: Lisinopril 5 MG TAB PO (09:40)
[2018-05-02] MEDS: Thiamine 100 MG TAB PO (09:40)
[2018-05-02] MEDS: Aspirin 81 MG CHEW PO (09:40)
[2018-05-02] MEDS: Patch Removal 1 EACH TP (09:41)
--- NOTE | 2018-05-02 13:33 | PDOC.CMPRO ---
Date of Service: 05/02/18 Time of Service: 13:33 Care Management Progress Note S/O: CM met with Hayes in his room. Hayes is currently SB2 awaiting placement. Mina is in good spirits and engaged in conversation however reports that he is worried about finding his car. Mina states that his car is at Vernell Irvin's home in [facility] ([phone]) and that he has been trying to contact him via phone all morning. [employer] report that the car is at their facility and is due to be impounded. Guardian Kya Nuñezcon aware and working on locating the car. Kya asked for Mina's [facility] ([facility]) number so that she could confirm banking information/direct deposit with him. Kya visited [place] yesterday and was told there was no money in Mina's account. CM emailed Kya with Shen Lopez's phone number [phone]/ [phone]. A: 78 year old male admitted for AMS transition to SB2 for SNF vs AFC placement P: Referral pending to [facility] and [facility]. CM to provide support to patient and care team, ongoing discharge planning and disposition. Plan SNF vs. LTC.
--- NOTE | 2018-05-02 13:38 | CMPROGNOTE_ITS ---
Date of Service: 05/02/18 Time of Service: 13:33 Care Management Progress Note S/O: CM met with Hayes in his room. Hayes is currently SB2 awaiting placement. Mina is in good spirits and engaged in conversation however reports that he is worried about finding his car. Mina states that his car is at Vernell Irvin's home in [facility] ([phone]) and that he has been trying to contact him via phone all morning. [employer] report that the car is at their facility and is due to be impounded. Guardian Kya Nuñezcon aware and working on locating the car. Kya asked for Mina's former [employer] (Shen Lopez ) number so that she could confirm banking information/direct deposit with him. Kya visited [place] yesterday and was told there was no money in Mina's account. CM emailed Kya with Shen Lopez's phone number [phone] / [phone]. A: 78 year old male admitted for AMS transition to SB2 for SNF vs AFC placement P: Referral pending to [facility] and [facility]. CM to provide support to patient and care team, ongoing discharge planning and disposition. Plan SNF vs. LTC.
[2018-05-03 08:06] VITALS: BP 121/77; PULSE 64; RESP 19; TEMP 36.1; O2SAT 98
--- NOTE | 2018-05-03 08:29 | CMPROGNOTE_ITS ---
Date of Service: 05/03/18 Time of Service: 08:28 Care Management Progress Note Mina enjoys walking in the halls, watching TV, as well as visiting with staff. Mina has been offered the activity cart during his swingbed stay, at this time he has not wanted anything from the cart, as he enjoys talking with staff. Reiki , therapy dogs, and music therapy has also been offered to Mina throughout his swingbed stay. Mina is a swingbed at this time while awaiting SNF vs AFC placement. Mina has been appointed a guardian which is KATHERYN Boland,. No change in current plan, awaiting placement.
[2018-05-03] MEDS: Thiamine 100 MG TAB PO (09:27)
[2018-05-03] MEDS: Lisinopril 5 MG TAB PO (09:27)
[2018-05-03] MEDS: Multivitamin w/Minerals TAB 1 TAB PO (09:27)
[2018-05-03] MEDS: amLODIPine 5 MG TAB PO (09:27)
[2018-05-03] MEDS: Nicotine 14 MG/24 HR PATCH TD (09:27)
[2018-05-03] MEDS: Aspirin 81 MG CHEW PO (09:27)
[2018-05-03] MEDS: Patch Removal 1 EACH TP (21:42)
[2018-05-04 07:35] VITALS: BP 103/63; PULSE 59; RESP 18; TEMP 37.1; O2SAT 95
[2018-05-04] MEDS: Aspirin 81 MG CHEW PO (08:21)
[2018-05-04] MEDS: amLODIPine 5 MG TAB PO (08:21)
[2018-05-04] MEDS: Multivitamin w/Minerals TAB 1 TAB PO (08:21)
[2018-05-04] MEDS: Lisinopril 5 MG TAB PO (08:21)
[2018-05-04] MEDS: Nicotine 14 MG/24 HR PATCH TD (08:21)
[2018-05-04] MEDS: Thiamine 100 MG TAB PO (08:21)
[2018-05-04] MEDS: Patch Removal 1 EACH TP (15:20)
--- NOTE | 2018-05-04 15:22 | NUR.NOTE ---
Nursing Note: 1520: pt requesting nicotine patch be removed as it's bugging me. RN Libby present. unable to document removal on emar as it is scheduled for 0. patch placed in medication waste container.
[2018-05-05] MEDS: Multivitamin w/Minerals TAB 1 TAB PO (08:33)
[2018-05-05] MEDS: Thiamine 100 MG TAB PO (08:33)
[2018-05-05] MEDS: Nicotine 14 MG/24 HR PATCH TD (08:33)
[2018-05-05] MEDS: Lisinopril 5 MG TAB PO (08:33)
[2018-05-05] MEDS: Aspirin 81 MG CHEW PO (08:33)
[2018-05-05] MEDS: amLODIPine 5 MG TAB PO (08:33)
[2018-05-05 08:50] VITALS: BP 122/76; PULSE 70; RESP 18; TEMP 36.7; O2SAT 97
[2018-05-05] MEDS: Patch Removal 1 EACH TP (20:55)
--- NOTE | 2018-05-05 23:12 | NUR.NOTE ---
Nursing Note: At approimately 1700: This patient was wandering and attempted to enter the room next to his that has a psychiatric patient in it. The patient of the other room yelled at this patient to get the hell out of my room Which agitated this patient. Staff was able to calm him down and redirect him to his room
[2018-05-06 08:00] VITALS: BP 127/80; PULSE 57; RESP 18; TEMP 36.7; O2SAT 96
[2018-05-06] MEDS: Nicotine 14 MG/24 HR PATCH TD (08:20)
[2018-05-06] MEDS: Multivitamin w/Minerals TAB 1 TAB PO (08:21)
[2018-05-06] MEDS: amLODIPine 5 MG TAB PO (08:21)
[2018-05-06] MEDS: Thiamine 100 MG TAB PO (08:21)
[2018-05-06] MEDS: Lisinopril 5 MG TAB PO (08:21)
[2018-05-06] MEDS: Aspirin 81 MG CHEW PO (08:21)
[2018-05-06] MEDS: Patch Removal 1 EACH TP (22:33)
[2018-05-07 07:19] VITALS: BP 143/88; PULSE 56; RESP 16; TEMP 36; O2SAT 97
[2018-05-07] MEDS: Multivitamin w/Minerals TAB 1 TAB PO (07:58)
[2018-05-07] MEDS: Lisinopril 5 MG TAB PO (07:58)
[2018-05-07] MEDS: Aspirin 81 MG CHEW PO (07:58)
[2018-05-07] MEDS: amLODIPine 5 MG TAB PO (07:58)
[2018-05-07] MEDS: Thiamine 100 MG TAB PO (07:58)
[2018-05-07 19:45] VITALS: PULSE 64; RESP 16
[2018-05-08] MEDS: Aspirin 81 MG CHEW PO (07:56)
[2018-05-08] MEDS: Multivitamin w/Minerals TAB 1 TAB PO (07:56)
[2018-05-08] MEDS: Lisinopril 5 MG TAB PO (07:56)
[2018-05-08] MEDS: amLODIPine 5 MG TAB PO (07:57)
[2018-05-08] MEDS: Thiamine 100 MG TAB PO (07:57)
[2018-05-08 08:00] VITALS: BP 111/74; PULSE 60; RESP 16; TEMP 36.2; O2SAT 97
--- NOTE | 2018-05-08 11:05 | PDOC.CMPRO ---
Date of Service: 05/08/18 Time of Service: 11:05 Care Management Progress Note S/O: Hayes is currently SB2 awaiting placement. TIERRA spoke with Vonnie Beckford regarding pt's car. Mina Salcido's guardian, is working on finding an appropriate location for the vehicle. Per the request of [facility], updated clinicals and application faxed. (Emily Portillo; [phone]). Kya emailed regarding meeting on Monday. A: 78 year old male admitted for AMS transition to SB2 for SNF vs AFC placement P: Referrals pending to [facility] and [facility]. [facility] (Emily Portillo) will be meeting with Mina on Monday, 05/11 at 11:00am in his room. Wm Boland is aware and will be present for the meeting. CM to provide support to patient and care team, ongoing discharge planning and disposition. Plan SNF vs. LTC.
--- NOTE | 2018-05-08 11:12 | CMPROGNOTE_ITS ---
Date of Service: 05/08/18 Time of Service: 11:05 Care Management Progress Note S/O: Hayes is currently SB2 awaiting placement. TIERRA spoke with Vonnie Beckford regarding pt's car. Mina Salcido's guardian, is working on finding an appropriate location for the vehicle. Per the request of [facility], updated clinicals and application faxed. (Emily Portillo; ). Kya emailed regarding meeting on Monday. A: 78 year old male admitted for AMS transition to SB2 for SNF vs AFC placement P: Referrals pending to [facility] and [facility]. [facility] (Emily Portillo) will be meeting with Mina on Monday, at 11:00am in his room. Wm Bloand is aware and will be present for the meeting. CM to provide support to patient and care team, ongoing discharge planning and disposition. Plan SNF vs. LTC.
[2018-05-09 07:25] VITALS: BP 122/81; PULSE 59; RESP 16; TEMP 37.2; O2SAT 97
[2018-05-09] MEDS: Aspirin 81 MG CHEW PO (08:09)
[2018-05-09] MEDS: Thiamine 100 MG TAB PO (08:09)
[2018-05-09] MEDS: Lisinopril 5 MG TAB PO (08:09)
[2018-05-09] MEDS: Multivitamin w/Minerals TAB 1 TAB PO (08:10)
[2018-05-09] MEDS: amLODIPine 5 MG TAB PO (08:10)
--- NOTE | 2018-05-09 14:32 | PDOC.CMACT ---
Date of Service: 05/09/18 Time of Service: 14:32 Care Management Activity Note Mina enjoys walking in the halls, visiting with staff and watching television. Mina has been offered the activity cart during his swingbed stay but as of this times has not wanted anything from the cart. Mina has additionally been offered Reiki, therapy dogs, and music therapy throughout his swingbed stay. Mina is SB2 at this time while awaiting SNF vs AFC placement. Mina's appointed guardian is Kya Mcguire of the Office of Public Guardian.
--- NOTE | 2018-05-09 15:04 | NS.NUTBLAN_ITS ---
Mr. Rosenberg continues to eat 100% of his meals. His last weight was 04/27/18. Would suggest weekly weights to help us more accurately assess his nutritional status. His last weight 56.8 kg and his BMI was 19 kg/m2 which is on the low end of normal. Will continue to follow his progress.
[2018-05-10 07:45] VITALS: BP 115/73; PULSE 57; RESP 16; TEMP 36.2; O2SAT 95
[2018-05-10] MEDS: Thiamine 100 MG TAB PO (07:46)
[2018-05-10] MEDS: Multivitamin w/Minerals TAB 1 TAB PO (07:46)
[2018-05-10] MEDS: amLODIPine 5 MG TAB PO (07:46)
[2018-05-10] MEDS: Lisinopril 5 MG TAB PO (07:47)
[2018-05-10] MEDS: Aspirin 81 MG CHEW PO (07:47)
[2018-05-11 07:35] VITALS: BP 109/74; PULSE 58; RESP 16; TEMP 37.1; O2SAT 94
[2018-05-11] MEDS: Multivitamin w/Minerals TAB 1 TAB PO (07:45)
[2018-05-11] MEDS: Thiamine 100 MG TAB PO (07:45)
[2018-05-11] MEDS: Aspirin 81 MG CHEW PO (07:45)
[2018-05-11] MEDS: amLODIPine 5 MG TAB PO (07:45)
[2018-05-11] MEDS: Lisinopril 5 MG TAB PO (07:45)
--- NOTE | 2018-05-11 12:30 | PDOC.CMPRO ---
Date of Service: 05/11/18 Time of Service: 12:30 Care Management Progress Note S/O: Hayes is currently SB2 awaiting placement. [facility] Services staff, along with guardian Kya and CM, met with Mina in his room to discuss placement in an adult chcf. Mina is engaged in conversation and talkative. He is open to placement and is forthcoming answering questions about his interests, needs and wants regarding a home. Kya reports that Mina's car will need to be towed to [facility] and that should happen with in the next few days. Lorena Connell [facility] reports Mina met clinical criteria per her assessment for LTC [facility] funding. A: 78 year old male admitted for AMS transition to SB2 for SNF vs AFC placement P: [facility] Services staff (Emily and Sunshine) will follow up with TIERRA and Kya next week regarding next steps with placement. CM faxed updated information to Lorena Connell per request to assist with the expediting of Mina's Snf Care Medicaid application. CM will continue to provide support to pt, care team, ongoing discharge planning and disposition.
--- NOTE | 2018-05-11 12:35 | CMPROGNOTE_ITS ---
Date of Service: 05/11/18 Time of Service: 12:30 Care Management Progress Note S/O: Hayes is currently SB2 awaiting placement. [facility] Services staff, along with guardian Kya and CM, met with Mina in his room to discuss placement in an adult usp. Mina is engaged in conversation and talkative. He is open to placement and is forthcoming answering questions about his interests, needs and wants regarding a home. Kya reports that Mina's car will need to be towed to [facility] and that should happen with in the next few days. Lorena Connell [facility] reports Mina met clinical criteria per her assessment for LTC [facility] funding. A: 78 year old male admitted for AMS transition to SB2 for SNF vs AFC placement P: [facility] Services staff (Emily and Sunshine) will follow up with TIERRA and Kya next week regarding next steps with placement. CM faxed updated information to Lorena Connell per request to assist with the expediting of Mina's Fdc Care Medicaid application. CM will continue to provide support to pt, care team , ongoing discharge planning and disposition.
[2018-05-12] MEDS: Thiamine 100 MG TAB PO (08:18)
[2018-05-12] MEDS: amLODIPine 5 MG TAB PO (08:18)
[2018-05-12] MEDS: Multivitamin w/Minerals TAB 1 TAB PO (08:18)
[2018-05-12] MEDS: Lisinopril 5 MG TAB PO (08:18)
[2018-05-12] MEDS: Aspirin 81 MG CHEW PO (08:19)
[2018-05-12 09:28] VITALS: BP 120/70; PULSE 51; RESP 16; TEMP 36.1; O2SAT 95
[2018-05-13 08:24] VITALS: BP 129/80; PULSE 53; RESP 16; TEMP 36; O2SAT 97
[2018-05-13] MEDS: amLODIPine 5 MG TAB PO (09:03)
[2018-05-13] MEDS: Thiamine 100 MG TAB PO (09:03)
[2018-05-13] MEDS: Lisinopril 5 MG TAB PO (09:03)
[2018-05-13] MEDS: Aspirin 81 MG CHEW PO (09:04)
[2018-05-13] MEDS: Multivitamin w/Minerals TAB 1 TAB PO (09:04)
--- NOTE | 2018-05-13 12:04 | PDOC.CMPRO ---
Care Management Progress Note CM consulted for behavioral management of Hayes as he eloped from [facility] recently and has been advocating for outside time. CM recommended Hayes be permitted to walk outside with office support specialist; remaining on [facility] grounds. RNCC Betty reported Amortization Clerk was agreeable to this plan as well. Plan to be re-evaluated after period of observation. Per RNCC-Hayes was permitted to ambulate outside without issue arising thus far.
--- NOTE | 2018-05-13 12:09 | CMPROGNOTE_ITS ---
Care Management Progress Note CM consulted for behavioral management of Hayes as he eloped from [facility] recently and has been advocating for outside time. CM recommended Hayes be permitted to walk outside with sales support manager; remaining on [facility] grounds. RNCC Betty reported Polysomnographic Technician was agreeable to this plan as well. Plan to be re-evaluated after period of observation. Per RNCC-Hayes was permitted to ambulate outside without issue arising thus far.
[2018-05-14 07:30] VITALS: BP 126/76; PULSE 54; RESP 19; TEMP 36.6; O2SAT 97
[2018-05-14] MEDS: Lisinopril 5 MG TAB PO (07:55)
[2018-05-14] MEDS: Thiamine 100 MG TAB PO (07:55)
[2018-05-14] MEDS: Multivitamin w/Minerals TAB 1 TAB PO (07:55)
[2018-05-14] MEDS: Aspirin 81 MG CHEW PO (07:55)
[2018-05-14] MEDS: amLODIPine 5 MG TAB PO (07:55)
[2018-05-15 07:50] VITALS: BP 110/62; PULSE 56; RESP 20; TEMP 36.2; O2SAT 96
--- NOTE | 2018-05-15 08:22 | PDOC.CMPRO ---
Date of Service: 05/15/18 Time of Service: 08:22 (]) Care Management Progress Note S/O: Hayes is currently SB2 awaiting placement. CM visited with Bill in his room this morning. He is engaged in conversation while eating breakfast. He has a one on one cadre at bedside. CM talked with pt about his new plan of care including walks outside with staff. He reports that he is happy he can do that though is not sure if he went outside yesterday or not. STABILIZING MACHINE OPERATOR Estefania aware that pt to be met with today and progress note written per SB2 guidelines. A: 78 year old male admitted for AMS transition to SB2 for SNF vs AFC placement. P: [facility] Services staff (Emily and Sunshine) to follow up with TIERRA and Kya this week regarding next steps with placement. Mina's medical criteria for Beam Press Operator Medicaid application has been met. CM will continue to provide support to pt, care team, ongoing discharge planning and disposition.
--- NOTE | 2018-05-15 08:28 | CMPROGNOTE_ITS ---
Date of Service: 05/15/18 Time of Service: 08:22 (]) Care Management Progress Note S/O: Hayes is currently SB2 awaiting placement. CM visited with Bill in his room this morning. He is engaged in conversation while eating breakfast. He has a one on one cadre at bedside. CM talked with pt about his new plan of care including walks outside with staff. He reports that he is happy he can do that though is not sure if he went outside yesterday or not. DOUGH CUTTER Estefania aware that pt to be met with today and progress note written per SB2 guidelines. A: 78 year old male admitted for AMS transition to SB2 for SNF vs AFC placement. P: [facility] Services staff (Emily and Sunshine) to follow up with TIERRA and Kya this week regarding next steps with placement. Mina's medical criteria for Casket Liner Medicaid application has been met. CM will continue to provide support to pt, care team, ongoing discharge planning and disposition.
[2018-05-15] MEDS: Lisinopril 5 MG TAB PO (09:01)
[2018-05-15] MEDS: Multivitamin w/Minerals TAB 1 TAB PO (09:01)
[2018-05-15] MEDS: amLODIPine 5 MG TAB PO (09:01)
[2018-05-15] MEDS: Thiamine 100 MG TAB PO (09:01)
[2018-05-15] MEDS: Aspirin 81 MG CHEW PO (09:01)
[2018-05-16] MEDS: Lisinopril 5 MG TAB PO (08:31)
[2018-05-16] MEDS: Thiamine 100 MG TAB PO (08:31)
[2018-05-16] MEDS: amLODIPine 5 MG TAB PO (08:31)
[2018-05-16] MEDS: Multivitamin w/Minerals TAB 1 TAB PO (08:31)
[2018-05-16] MEDS: Aspirin 81 MG CHEW PO (08:31)
--- NOTE | 2018-05-16 16:25 | PDOC.PROG ---
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 He has been assessed by neurology and psychiatry. He is very pleasant and cooperative with care. Continue to monitor him and keep him safe while care management works on placement at an adult jail. History of Present Illness - History of Present Illness Chief Complaint: Swing bed status for dementia and inability to care for self. History of Present Illness: Mr. Rosenberg is a 78-year-old male with a history of hypertension, hypercholesterolemia, peripheral vascular disease, BPH, COPD, and memory impairment who is currently on swing bed status due to his dementia and inability to care for himself at home. He was evaluated by Dr. Monica Grider who made the determination that he did not have the capacity to leave the hospital AGAINST MEDICAL ADVICE. Guardianship has been sought through the court system. He has been evaluated by an agency that provides adult care homes. He is currently awaiting placement at an adult jail. He is unable to give history due to his dementia status however, he does verbalize that he is not experiencing any discomfort, shortness of breath, chest pain, abdominal discomfort or nausea when questioned. He is pleasant to staff. His vital signs are stable. There are no concerns at this time. Review of Systems - Review of Systems Constitutional: denies: Fever, Chills, Sweats, Weakness, Malaise Respiratory: denies: Cough, Shortness of Breath, Wheezing Cardiovascular: denies: Chest Pain, Palpitations, Edema, Light Headedness Gastrointestinal: denies: Nausea, Vomiting, Abdominal Pain Genitourinary: denies: Dysuria Musculoskeletal: Other (denies pain.) Neurological: denies: Weakness, Numbness, Incoordination, Change in Speech, Confusion - Medications/Allergies Allergies/Adverse Reactions: Allergies Allergy/AdvReac Type Severity Reaction Status Date / Time No Known Allergies Allergy Unverified 04/09/18 10:56 Medications: Current Medications Acetaminophen (Tylenol) 650 mg PO Q4H PRN PRN Al Hydrox/Mg Hydrox/Simethicone (Mylanta Liquid) 30 ml PO Q2H PRN PRN Amlodipine Besylate (Norvasc) 5 mg PO DAILY [facility]EL Last Admin: 05/16/18 08:31 Dose: 5 mg Aspirin () 81 mg PO DAILY [facility] Last Admin: 05/16/18 08:31 Dose: 81 mg Dimethicone/Zinc Oxide (Tarah Protect Cream) 0 gm TP PRN PRN Iron/Minerals/Multivitamins (Theragran-M) 1 tab PO DAILY [facility] Last Admin: 05/16/18 08:31 Dose: 1 tab Lisinopril (Prinivil) 5 mg PO DAILY [facility] Last Admin: 05/16/18 08:31 Dose: 5 mg Magnesium Hydroxide (Milk Of Magnesia) 30 ml PO DAILY PRN PRN PRN Reason: Constipation Last Admin: 05/01/18 09:01 Dose: 30 ml Miscellaneous (Remove Patch) 1 each TP DAILY PRN Nicotine (Nicoderm Cq) 7 mg TD DAILY PRN PRN Thiamine HCl (Thiamine) 100 mg PO DAILY [facility] Last Admin: 05/16/18 08:31 Dose: 100 mg Objective - Exam Vitals and I&O: Vital Signs Temp 36.2 C L 05/15/18 07:50 Pulse 56 L 05/15/18 07:50 Resp 20 05/15/18 07:50 BP 110/62 05/15/18 07:50 Pulse Ox 96 05/15/18 07:50 Intake & Output 05/15/18 05/16/18 05/16/18 23:59 11:59 23:59 Intake Total 490 480 240 Balance 490 480 240 Weight 56.3 kg Intake: Oral 490 480 240 Other: Urine Color Yellow Urine Appearance Clear Urine Odor Normal Comment pt is up AD DUKE to void. Pt voids during day independ. Voiding Methods Toilet Toilet General: Alert, Cooperative, No acute distress. denies: Oriented x3 (He is oriented to person.) HEENT: Atraumatic, PERRLA, Mucous membr. moist/pink Neck: Supple. denies: JVD Lungs: Clear to auscultation, Normal air movement Cardiovascular: Regular rate. denies: Murmurs Abdomen: Normal bowel sounds, Soft. denies: Tenderness, Masses Extremities: Normal pulses. denies: Clubbing, Cyanosis, Edema, Tenderness/swelling Skin: denies: Rashes, Breakdown Neurological: Normal gait, Normal speech, Strength at 5/5 X4 ext, Normal tone, Sensation intact Psych/Mental Status: Other (He is calm, pleasant and cooperative.)
--- NOTE | 2018-05-16 16:34 | PDOC.PROG_ITS ---
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 He has been assessed by neurology and psychiatry. He is very pleasant and cooperative with care. Continue to monitor him and keep him safe while care management works on placement at an adult fpc. History of Present Illness - History of Present Illness Chief Complaint: Swing bed status for dementia and inability to care for self. History of Present Illness: Mr. Rosenberg is a 78-year-old male with a history of hypertension, hypercholesterolemia, peripheral vascular disease, BPH, COPD, and memory impairment who is currently on swing bed status due to his dementia and inability to care for himself at home. He was evaluated by Dr. Monica Grider who made the determination that he did not have the capacity to leave the hospital AGAINST MEDICAL ADVICE. Guardianship has been sought through the court system. He has been evaluated by an agency that provides adult care homes. He is currently awaiting placement at an adult fpc. He is unable to give history due to his dementia status however, he does verbalize that he is not experiencing any discomfort, shortness of breath, chest pain, abdominal discomfort or nausea when questioned. He is pleasant to staff. His vital signs are stable. There are no concerns at this time. Review of Systems - Review of Systems Constitutional: denies: Fever, Chills, Sweats, Weakness, Malaise Respiratory: denies: Cough, Shortness of Breath, Wheezing Cardiovascular: denies: Chest Pain, Palpitations, Edema, Light Headedness Gastrointestinal: denies: Nausea, Vomiting, Abdominal Pain Genitourinary: denies: Dysuria Musculoskeletal: Other (denies pain.) Neurological: denies: Weakness, Numbness, Incoordination, Change in Speech, Confusion - Medications/Allergies Allergies/Adverse Reactions: Allergies Allergy/AdvReac Type Severity Reaction Status Date / Time No Known Allergies Allergy Unverified 04/09/18 10:56 Medications: Current Medications Acetaminophen (Tylenol) 650 mg PO Q4H PRN PRN Al Hydrox/Mg Hydrox/Simethicone (Mylanta Liquid) 30 ml PO Q2H PRN PRN Amlodipine Besylate (Norvasc) 5 mg PO DAILY [facility] Last Admin: 05/16/18 08:31 Dose: 5 mg Aspirin () 81 mg PO DAILY [facility] Last Admin: 05/16/18 08:31 Dose: 81 mg Dimethicone/Zinc Oxide (Tarah Protect Cream) 0 gm TP PRN PRN Iron/Minerals/Multivitamins (Theragran-M) 1 tab PO DAILY [facility] Last Admin: 05/16/18 08:31 Dose: 1 tab Lisinopril (Prinivil) 5 mg PO DAILY [facility] Last Admin: 05/16/18 08:31 Dose: 5 mg Magnesium Hydroxide (Milk Of Magnesia) 30 ml PO DAILY PRN PRN PRN Reason: Constipation Last Admin: 05/01/18 09:01 Dose: 30 ml Miscellaneous (Remove Patch) 1 each TP DAILY PRN Nicotine (Nicoderm Cq) 7 mg TD DAILY PRN PRN Thiamine HCl (Thiamine) 100 mg PO DAILY [facility] Last Admin: 05/16/18 08:31 Dose: 100 mg Objective - Exam Vitals and I&O: Vital Signs Temp 36.2 C L 05/15/18 07:50 Pulse 56 L 05/15/18 07:50 Resp 20 05/15/18 07:50 BP 110/62 05/15/18 07:50 Pulse Ox 96 05/15/18 07:50 Intake & Output 05/15/18 05/16/18 05/16/18 23:59 11:59 23:59 Intake Total 490 480 240 Balance 490 480 240 Weight 56.3 kg Intake: Oral 490 480 240 Other: Urine Color Yellow Urine Appearance Clear Urine Odor Normal Comment pt is up AD DUKE to void. Pt voids during day independ. Voiding Methods Toilet Toilet General: Alert, Cooperative, No acute distress. denies: Oriented x3 (He is oriented to person.) HEENT: Atraumatic, PERRLA, Mucous membr. moist/pink Neck: Supple. denies: JVD Lungs: Clear to auscultation, Normal air movement Cardiovascular: Regular rate. denies: Murmurs Abdomen: Normal bowel sounds, Soft. denies: Tenderness, Masses Extremities: Normal pulses. denies: Clubbing, Cyanosis, Edema, Tenderness/ swelling Skin: denies: Rashes, Breakdown Neurological: Normal gait, Normal speech, Strength at 5/5 X4 ext, Normal tone, Sensation intact Psych/Mental Status: Other (He is calm, pleasant and cooperative.)
[2018-05-17 08:01] VITALS: BP 124/67; PULSE 51; RESP 18; TEMP 37.3; O2SAT 97
[2018-05-17] MEDS: Thiamine 100 MG TAB PO (08:44)
[2018-05-17] MEDS: amLODIPine 5 MG TAB PO (08:44)
[2018-05-17] MEDS: Lisinopril 5 MG TAB PO (08:44)
[2018-05-17] MEDS: Aspirin 81 MG CHEW PO (08:44)
[2018-05-17] MEDS: Multivitamin w/Minerals TAB 1 TAB PO (08:44)
[2018-05-17 08:49] VITALS: PULSE 58
[2018-05-18 07:35] VITALS: BP 129/74; PULSE 53; RESP 18; TEMP 36.4; O2SAT 97
[2018-05-18] MEDS: amLODIPine 5 MG TAB PO (08:17)
[2018-05-18] MEDS: Aspirin 81 MG CHEW PO (08:17)
[2018-05-18] MEDS: Lisinopril 5 MG TAB PO (08:17)
[2018-05-18] MEDS: Thiamine 100 MG TAB PO (08:17)
[2018-05-18] MEDS: Multivitamin w/Minerals TAB 1 TAB PO (08:17)
[2018-05-18 20:10] VITALS: PULSE 64; RESP 20
[2018-05-19 08:17] VITALS: BP 138/83; PULSE 60; RESP 16; TEMP 36.2; O2SAT 96
[2018-05-19] MEDS: Multivitamin w/Minerals TAB 1 TAB PO (08:18)
[2018-05-19] MEDS: Thiamine 100 MG TAB PO (08:18)
[2018-05-19] MEDS: Aspirin 81 MG CHEW PO (08:18)
[2018-05-19] MEDS: Lisinopril 5 MG TAB PO (08:18)
[2018-05-19] MEDS: amLODIPine 5 MG TAB PO (08:18)
[2018-05-19 23:45] VITALS: RESP 20
[2018-05-20 08:00] VITALS: BP 126/66; PULSE 56; RESP 16; TEMP 36.6; O2SAT 98
[2018-05-20] MEDS: amLODIPine 5 MG TAB PO (08:02)
[2018-05-20] MEDS: Aspirin 81 MG CHEW PO (08:02)
[2018-05-20] MEDS: Multivitamin w/Minerals TAB 1 TAB PO (08:02)
[2018-05-20] MEDS: Thiamine 100 MG TAB PO (08:02)
[2018-05-20] MEDS: Lisinopril 5 MG TAB PO (08:02)
--- NOTE | 2018-05-20 15:14 | NUR.NOTE ---
Nursing Note: pt has not had a cadre today. pt has been pleasant with this RN when doing assessment and rounding. this scribe not present when pt became upset with not being allowed to go outside earlier today.
[2018-05-21 08:11] VITALS: BP 125/74; PULSE 54; RESP 19; TEMP 36; O2SAT 96
[2018-05-21] MEDS: Aspirin 81 MG CHEW PO (08:34)
[2018-05-21] MEDS: amLODIPine 5 MG TAB PO (08:34)
[2018-05-21] MEDS: Lisinopril 5 MG TAB PO (08:34)
[2018-05-21] MEDS: Thiamine 100 MG TAB PO (08:34)
[2018-05-21] MEDS: Multivitamin w/Minerals TAB 1 TAB PO (08:34)
--- NOTE | 2018-05-21 12:48 | PDOC.CMPRO ---
Date of Service: 05/21/18 Time of Service: 12:48 Care Management Progress Note Care Management Progress Note S/O: Hayes is currently SB2 awaiting placement. CM emailed Emily Portillo of [facility] regarding an update on placement for Bill. Emily advised that she does not have an appropriate home for Bill at this time but that she is in the screening process with several new applicants who may be suitable. A: 78 year old male admitted for AMS transition to SB2 for SNF vs AFC placement. P: [facility] staff (Emily and Sunshine) to follow up with CM and Kya regarding next steps with placement. Bill's medical criteria for [facility] Medicaid application has been met. Financial criteria is pending. CM will continue to provide support to patient, care team, ongoing discharge planning and disposition.
--- NOTE | 2018-05-21 12:51 | CMPROGNOTE_ITS ---
Date of Service: 05/21/18 Time of Service: 12:48 Care Management Progress Note Care Management Progress Note S/O: Hayes is currently SB2 awaiting placement. CM emailed Emily Portillo of [facility] regarding an update on placement for Bill. Emily advised that she does not have an appropriate home for Bill at this time but that she is in the screening process with several new applicants who may be suitable. A: 78 year old male admitted for AMS transition to SB2 for SNF vs AFC placement. P: [facility] staff (Emily and Sunshine) to follow up with CM and Kya regarding next steps with placement. Bill's medical criteria for Ass[facility] Medicaid application has been met. Financial criteria is pending. CM will continue to provide support to patient, care team, ongoing discharge planning and disposition.
[2018-05-22 08:50] VITALS: BP 113/68; PULSE 55; RESP 16; TEMP 36.2; O2SAT 96
[2018-05-22] MEDS: amLODIPine 5 MG TAB PO (08:52)
[2018-05-22] MEDS: Thiamine 100 MG TAB PO (08:52)
[2018-05-22] MEDS: Multivitamin w/Minerals TAB 1 TAB PO (08:53)
[2018-05-22] MEDS: Aspirin 81 MG CHEW PO (08:53)
[2018-05-22] MEDS: Lisinopril 5 MG TAB PO (08:53)
[2018-05-23] MEDS: Aspirin 81 MG CHEW PO (07:46)
[2018-05-23] MEDS: Thiamine 100 MG TAB PO (07:46)
[2018-05-23] MEDS: Multivitamin w/Minerals TAB 1 TAB PO (07:46)
[2018-05-23] MEDS: Lisinopril 5 MG TAB PO (07:46)
[2018-05-23] MEDS: amLODIPine 5 MG TAB PO (07:46)
[2018-05-23 14:10] VITALS: BP 105/67; PULSE 84; RESP 22; TEMP 37.1; O2SAT 95
[2018-05-24 08:00] VITALS: BP 149/75; PULSE 58; RESP 20; TEMP 36.7; O2SAT 98
[2018-05-24] MEDS: Lisinopril 5 MG TAB PO (08:09)
[2018-05-24] MEDS: Aspirin 81 MG CHEW PO (08:09)
[2018-05-24] MEDS: Thiamine 100 MG TAB PO (08:09)
[2018-05-24] MEDS: amLODIPine 5 MG TAB PO (08:09)
[2018-05-24] MEDS: Multivitamin w/Minerals TAB 1 TAB PO (08:09)
--- NOTE | 2018-05-24 08:25 | NUR.NOTE ---
Nursing Note: 0815: pt does not have a cadre today. RN checks on pt's tracking device which is on front of his red shirt. red light is working on outside of pt's room. frequent checks.
--- NOTE | 2018-05-24 09:11 | NUTRITION ---
PO intake continues to be excellent. Weight continues to trend upward slightly which is desirable and expected. Weight on 05/22/18 was 58.2 kg. BMI is 19.4 kg/m2 which is WNL. CDM and/or RDN will continue to visit with Mr. Rosenberg prior to meals and encourage nutrient dense foods. Will continue to monitor his weight and PO intake. Will continue to evaluate his nutrition care plan and adjust as needed.
--- NOTE | 2018-05-24 10:38 | NUR.NOTE ---
Nursing Note: 1030: pt has been cleaning out wallet this morning. pt states I've got a few things to do today, I'm going to finish cleaning this out then I'm going to go home for awhile. RN states she was not aware he was going somewhere today. pt reports yes, I'm driving my car there, it's parked across the street, my friend parked it there. RN alerts cc, and others at the desk to be more alert to pt's location. lot porter is on pt and indicates pt is in the room. continue to monitor.
[2018-05-24 20:20] VITALS: PULSE 65; RESP 20
[2018-05-25 07:10] VITALS: BP 114/76; PULSE 59; RESP 16; TEMP 36.4; O2SAT 97
[2018-05-25] MEDS: Lisinopril 5 MG TAB PO (08:16)
[2018-05-25] MEDS: Multivitamin w/Minerals TAB 1 TAB PO (08:16)
[2018-05-25] MEDS: Aspirin 81 MG CHEW PO (08:16)
[2018-05-25] MEDS: amLODIPine 5 MG TAB PO (08:16)
[2018-05-25] MEDS: Thiamine 100 MG TAB PO (08:16)
--- NOTE | 2018-05-25 10:31 | NUR.NOTE ---
Nursing Note: 1000: pt has no cadre today. pt noted to wander and be resistant to care at times. pt has declined a shower this am. pt did eat well this am, took medications without incident. continue to monitor.
[2018-05-26] MEDS: Lisinopril 5 MG TAB PO (08:32)
[2018-05-26] MEDS: Aspirin 81 MG CHEW PO (08:32)
[2018-05-26] MEDS: Thiamine 100 MG TAB PO (08:32)
[2018-05-26] MEDS: amLODIPine 5 MG TAB PO (08:32)
[2018-05-26] MEDS: Multivitamin w/Minerals TAB 1 TAB PO (08:32)
[2018-05-26 08:45] VITALS: BP 120/77; PULSE 54; RESP 19; TEMP 36.2; O2SAT 95
[2018-05-27 07:50] VITALS: BP 117/72; PULSE 62; RESP 19; TEMP 37; O2SAT 95
[2018-05-27] MEDS: Lisinopril 5 MG TAB PO (08:35)
[2018-05-27] MEDS: Aspirin 81 MG CHEW PO (08:35)
[2018-05-27] MEDS: Thiamine 100 MG TAB PO (08:35)
[2018-05-27] MEDS: amLODIPine 5 MG TAB PO (08:35)
[2018-05-27] MEDS: Multivitamin w/Minerals TAB 1 TAB PO (08:35)
[2018-05-28 07:40] VITALS: BP 148/84; PULSE 56; RESP 18; TEMP 36.7; O2SAT 96
[2018-05-28] MEDS: Multivitamin w/Minerals TAB 1 TAB PO (07:52)
[2018-05-28] MEDS: amLODIPine 5 MG TAB PO (07:52)
[2018-05-28] MEDS: Lisinopril 5 MG TAB PO (07:52)
[2018-05-28] MEDS: Aspirin 81 MG CHEW PO (07:52)
[2018-05-28] MEDS: Thiamine 100 MG TAB PO (07:52)
--- NOTE | 2018-05-28 14:07 | CHAPLAIN ---
In a conversation with Mina today, he said he was a member of the [facility] and he had asked about going there to attend the service on Sundays and was told that he could not. I asked if he would like to have the licensed marriage and family therapistRev. Daniele visit here, and Mina gave me permission to call the anabaptist and request a visit for him. I left a message with the it administrative assistant. They were unaware that Mina was still here.
--- NOTE | 2018-05-28 14:38 | PDOC.CMPRO ---
Date of Service: 05/28/18 Time of Service: 14:38 Care Management Progress Note S/O: Hayes is currently SB2 awaiting placement. Mina seems more lethargic than normal today and reports that he hates this place. He reports that he would like to find a permanent place to go and that someone is working on that. Mina reports that he would [facility] to go to [facility] but was told he couldn't go there, but that maybe someone from the [facility] could come visit him at the hospital. CM advised Mina that machine operator assistant, Maribell, would also be available to visit with him and he reported that that would be fine. CM informed Maribell of pt's request. A: 78 year old male admitted for AMS transition to SB2 for SNF vs AFC placement. P: [facility] Services staff (Emily and Sunshine) to follow up with TIERRA and Kya regarding next steps with placement. Mina's medical criteria for [facility] Medicaid application has been met. Financial criteria is pending. CM will continue to provide support to patient, care team, ongoing discharge planning and disposition.
--- NOTE | 2018-05-28 14:52 | CMPROGNOTE_ITS ---
Date of Service: 05/28/18 Time of Service: 14:38 Care Management Progress Note S/O: Hayes is currently SB2 awaiting placement. Mina seems more lethargic than normal today and reports that he hates this place. He reports that he would like to find a permanent place to go and that someone is working on that . Mina reports that he would like to go to [facility] but was told he couldn't go there, but that maybe someone from the [facility] could come visit him at the hospital. CM advised Mina that nurse advocate, Maribell, would also be available to visit with him and he reported that that would be fine. CM informed Maribell of pt's request. A: 78 year old male admitted for AMS transition to SB2 for SNF vs AFC placement. P: [facility] Services staff (Emily and Sunshine) to follow up with TIERRA and Kya regarding next steps with placement. Mina's medical criteria for Envelope [employer] Medicaid application has been met. Financial criteria is pending. CM will continue to provide support to patient, care team, ongoing discharge planning and disposition.
[2018-05-29 08:21] VITALS: BP 149/79; PULSE 60; RESP 16; TEMP 36.6; O2SAT 96
[2018-05-29] MEDS: Multivitamin w/Minerals TAB 1 TAB PO (09:14)
[2018-05-29] MEDS: amLODIPine 5 MG TAB PO (09:14)
[2018-05-29] MEDS: Aspirin 81 MG CHEW PO (09:14)
[2018-05-29] MEDS: Thiamine 100 MG TAB PO (09:14)
[2018-05-29] MEDS: Lisinopril 5 MG TAB PO (09:14)
[2018-05-30 06:39] VITALS: BP 129/84; PULSE 65; RESP 18; TEMP 37.2; O2SAT 96
[2018-05-30] MEDS: Lisinopril 5 MG TAB PO (07:33)
[2018-05-30] MEDS: Multivitamin w/Minerals TAB 1 TAB PO (07:33)
[2018-05-30] MEDS: Thiamine 100 MG TAB PO (07:34)
[2018-05-30] MEDS: amLODIPine 5 MG TAB PO (07:34)
[2018-05-30] MEDS: Aspirin 81 MG CHEW PO (07:34)
--- NOTE | 2018-05-30 11:15 | CHAPLAIN ---
Mina was sitting up watching tv when I visited. He said he hasn't yet seen anyone from the [facility]. I called on 05/27 to let them know that Mina is still here.
--- NOTE | 2018-05-30 13:55 | NUTRITION ---
Mr. Rosenberg continues to eat well. His weight continues to increase which is expected and desired. His weight on 05/28/18 was 59.2 kg. His BMI is 19.8 kg/m2 which is WNL. Please continue with weekly weights to to help monitor his nutritional status so we can evaluate his nutrition care plan and adjust as needed.
[2018-05-31 07:15] VITALS: BP 134/80; PULSE 54; RESP 18; TEMP 36.1; O2SAT 97
[2018-05-31] MEDS: Multivitamin w/Minerals TAB 1 TAB PO (07:49)
[2018-05-31] MEDS: Lisinopril 5 MG TAB PO (07:49)
[2018-05-31] MEDS: Thiamine 100 MG TAB PO (07:50)
[2018-05-31] MEDS: Aspirin 81 MG CHEW PO (07:50)
[2018-05-31] MEDS: amLODIPine 5 MG TAB PO (07:50)
--- NOTE | 2018-06-01 01:04 | NUR.NOTE ---
Nursing Note: Notified nursing histology supervisor of patient wandering, request for patient observer denied.
[2018-06-01 07:15] VITALS: BP 128/79; PULSE 60; RESP 18; TEMP 36.4; O2SAT 96
[2018-06-01] MEDS: Multivitamin w/Minerals TAB 1 TAB PO (08:55)
[2018-06-01] MEDS: amLODIPine 5 MG TAB PO (08:55)
[2018-06-01] MEDS: Thiamine 100 MG TAB PO (08:55)
[2018-06-01] MEDS: Lisinopril 5 MG TAB PO (08:55)
[2018-06-01] MEDS: Aspirin 81 MG CHEW PO (08:55)
--- NOTE | 2018-06-01 12:33 | PDOC.CMACT ---
Date of Service: 06/01/18 Time of Service: 12:33 Care Management Activity Note Mina enjoys walking in the halls, visiting with staff and watching television. Mina has been offered the activity cart during his swingbed stay but as of this times has not wanted anything from the cart. Mina has additionally been offered Reiki, therapy dogs, and music therapy throughout his swingbed stay. Mina is SB2 at this time while awaiting SNF vs AFC placement. Pt' [employer] [facility] Medicare application is pending. Mina's appointed guardian is Kya Mcguire of the [employer].
--- NOTE | 2018-06-01 16:17 | NUR.NOTE ---
Addendum entered by Libby Hoffman 06/01/18 16:21: Nursing Bill Collector, Nieves Walker notified of the continued need for a cadre. She stated that there are no cadres at this time. She suggested that if a cadre is needed anywhere to use the REEL ASSEMBLER on the floor Original Note: Nursing Note: At approximately 1515 this patient was trying to elope down the back stairs. Patient became angry when staff attempted to redirect him. ROSHNI Werner walked with him to distract him from the exit. Patient now sitting in his room drinking a cup of coffee
--- NOTE | 2018-06-01 18:44 | NUR.NOTE ---
Nursing Note: Patient just found in mangers office. Patient tripped over the foot of the transport chair and started to fall. Patient was able to grab ahold of something and steadied himself. Patient brought back to his room and given a cup of coffee
[2018-06-02 07:20] VITALS: BP 115/75; PULSE 62; RESP 18; TEMP 37; O2SAT 96
[2018-06-02] MEDS: Multivitamin w/Minerals TAB 1 TAB PO (14:50)
[2018-06-02] MEDS: Aspirin 81 MG CHEW PO (14:50)
[2018-06-02] MEDS: Lisinopril 5 MG TAB PO (14:50)
[2018-06-02] MEDS: amLODIPine 5 MG TAB PO (14:50)
[2018-06-02] MEDS: Thiamine 100 MG TAB PO (14:50)
[2018-06-03 07:33] VITALS: BP 112/74; PULSE 61; RESP 16; TEMP 36.7; O2SAT 96
[2018-06-03] MEDS: Aspirin 81 MG CHEW PO (09:35)
[2018-06-03] MEDS: Thiamine 100 MG TAB PO (09:35)
[2018-06-03] MEDS: Multivitamin w/Minerals TAB 1 TAB PO (09:35)
[2018-06-03] MEDS: Lisinopril 5 MG TAB PO (09:35)
[2018-06-03] MEDS: amLODIPine 5 MG TAB PO (09:35)
[2018-06-04 07:20] VITALS: BP 121/73; PULSE 52; RESP 17; TEMP 36.1; O2SAT 95
[2018-06-04] MEDS: Multivitamin w/Minerals TAB 1 TAB PO (08:47)
[2018-06-04] MEDS: Thiamine 100 MG TAB PO (08:47)
[2018-06-04] MEDS: amLODIPine 5 MG TAB PO (08:47)
[2018-06-04] MEDS: Lisinopril 5 MG TAB PO (08:47)
[2018-06-04] MEDS: Aspirin 81 MG CHEW PO (08:47)
[2018-06-05] MEDS: Multivitamin w/Minerals TAB 1 TAB PO (07:48)
[2018-06-05] MEDS: amLODIPine 5 MG TAB PO (07:48)
[2018-06-05] MEDS: Lisinopril 5 MG TAB PO (07:48)
[2018-06-05] MEDS: Aspirin 81 MG CHEW PO (07:49)
[2018-06-05] MEDS: Thiamine 100 MG TAB PO (07:49)
[2018-06-05 07:50] VITALS: BP 126/80; PULSE 66; RESP 16; TEMP 36.1; O2SAT 96
[2018-06-06] MEDS: Aspirin 81 MG CHEW PO (07:41)
[2018-06-06] MEDS: Lisinopril 5 MG TAB PO (07:41)
[2018-06-06] MEDS: amLODIPine 5 MG TAB PO (07:41)
[2018-06-06] MEDS: Thiamine 100 MG TAB PO (07:41)
[2018-06-06] MEDS: Multivitamin w/Minerals TAB 1 TAB PO (07:41)
[2018-06-06 07:45] VITALS: BP 119/75; PULSE 57; RESP 19; TEMP 35.9; O2SAT 96
--- NOTE | 2018-06-06 11:19 | PDOC.CMACT ---
Date of Service: 06/06/18 Time of Service: 11:19 Care Management Activity Note Mina enjoys walking in the halls, visiting with staff and watching television. Mina has been offered the activity cart during his swingbed stay has shown little interest. CM will continue to explore opportunities of interest to Mina. Mina has additionally been offered Reiki, therapy dogs, and music therapy throughout his swingbed stay. CM spoke with Peace Perez at [facility] regarding referral. Updated referral and clinicals faxed to [facility]. CM spoke with Dai who declined referral. Mina is SB2 at this time while awaiting SNF vs AFC placement. Pt's [facility] Medicaid application has been approved. Mina's appointed guardian is Kya Mcguire of the [employer].
[2018-06-07] MEDS: Aspirin 81 MG CHEW PO (08:35)
[2018-06-07] MEDS: amLODIPine 5 MG TAB PO (08:35)
[2018-06-07] MEDS: Multivitamin w/Minerals TAB 1 TAB PO (08:35)
[2018-06-07] MEDS: Lisinopril 5 MG TAB PO (08:35)
[2018-06-07] MEDS: Thiamine 100 MG TAB PO (08:36)
[2018-06-07 08:39] VITALS: BP 119/75; PULSE 57; RESP 19; TEMP 35.9; O2SAT 96
[2018-06-08 07:05] VITALS: BP 110/70; PULSE 61; RESP 18; TEMP 36.4; O2SAT 95
[2018-06-08] MEDS: amLODIPine 5 MG TAB PO (08:32)
[2018-06-08] MEDS: Lisinopril 5 MG TAB PO (08:32)
[2018-06-08] MEDS: Thiamine 100 MG TAB PO (08:32)
[2018-06-08] MEDS: Aspirin 81 MG CHEW PO (08:32)
[2018-06-08] MEDS: Multivitamin w/Minerals TAB 1 TAB PO (08:33)
[2018-06-09 07:35] VITALS: BP 131/80; PULSE 62; RESP 20; TEMP 35.9; O2SAT 95
[2018-06-09] MEDS: Multivitamin w/Minerals TAB 1 TAB PO (07:35)
[2018-06-09] MEDS: Thiamine 100 MG TAB PO (07:35)
[2018-06-09] MEDS: Aspirin 81 MG CHEW PO (07:35)
[2018-06-09] MEDS: amLODIPine 5 MG TAB PO (07:35)
[2018-06-09] MEDS: Lisinopril 5 MG TAB PO (07:36)
[2018-06-09 19:39] VITALS: BP 116/63; PULSE 66; RESP 16; TEMP 36.2; O2SAT 97
[2018-06-10 07:20] VITALS: BP 131/81; PULSE 59; RESP 18; TEMP 36.3; O2SAT 94
[2018-06-10] MEDS: amLODIPine 5 MG TAB PO (08:47)
[2018-06-10] MEDS: Multivitamin w/Minerals TAB 1 TAB PO (08:47)
[2018-06-10] MEDS: Lisinopril 5 MG TAB PO (08:47)
[2018-06-10] MEDS: Aspirin 81 MG CHEW PO (08:47)
[2018-06-10] MEDS: Thiamine 100 MG TAB PO (08:48)
[2018-06-10] MEDS: Acetaminophen 325 MG TAB 650 MG PO (22:39)
[2018-06-11 07:30] VITALS: BP 130/82; PULSE 55; RESP 18; TEMP 35.9; O2SAT 99
[2018-06-11] MEDS: Aspirin 81 MG CHEW PO (07:38)
[2018-06-11] MEDS: amLODIPine 5 MG TAB PO (07:38)
[2018-06-11] MEDS: Multivitamin w/Minerals TAB 1 TAB PO (07:38)
[2018-06-11] MEDS: Lisinopril 5 MG TAB PO (07:38)
[2018-06-11] MEDS: Thiamine 100 MG TAB PO (07:38)
--- NOTE | 2018-06-11 10:19 | PDOC.CMPRO ---
Date of Service: 06/11/18 Time of Service: 10:19 Care Management Progress Note S/O: Hayes is currently SB2 awaiting placement. 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 Mina informed the CM that he could leave if he wanted to and if CM couldn't find him later on today it was because he had left. CM discussed continued plans for placement and offered Bill activities from the cart. Mina declined coloring, cards, books and puzzles. A: 78 year old male admitted for AMS transition to SB2 for SNF vs AFC placement. P: CM will follow up with [facility] Services staff (Emily and Sunshine) regarding placement. CM will make additional referrals to AFCs and SNFs today and contact Kya regarding progress. CM will continue to provide support to patient and care team regarding ongoing discharge planning and disposition.
--- NOTE | 2018-06-11 10:25 | CMPROGNOTE_ITS ---
Date of Service: 06/11/18 Time of Service: 10:19 Care Management Progress Note S/O: Hayes is currently SB2 awaiting placement. 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 Mina informed the CM that he could leave if he wanted to and if CM couldn't find him later on today it was because he had left. CM discussed continued plans for placement and offered Bill activities from the cart. Mina declined coloring, cards, books and puzzles. A: 78 year old male admitted for AMS transition to SB2 for SNF vs AFC placement. P: CM will follow up with [facility] Services staff (Emily and Sunshine) regarding placement. CM will make additional referrals to AFCs and SNFs today and contact Kya regarding progress. CM will continue to provide support to patient and care team regarding ongoing discharge planning and disposition.
[2018-06-12] MEDS: amLODIPine 5 MG TAB PO (08:17)
[2018-06-12] MEDS: Multivitamin w/Minerals TAB 1 TAB PO (08:18)
[2018-06-12] MEDS: Lisinopril 5 MG TAB PO (08:18)
[2018-06-12] MEDS: Aspirin 81 MG CHEW PO (08:18)
[2018-06-12] MEDS: Thiamine 100 MG TAB PO (08:18)
[2018-06-12 11:15] VITALS: BP 128/75; PULSE 67; RESP 18; TEMP 36.4; O2SAT 95
--- NOTE | 2018-06-12 13:23 | CMPROGNOTE_ITS ---
Date of Service: 06/12/18 Time of Service: 13:21 Care Management Progress Note S/O: Hayes is currently SB2 awaiting placement. Mina requested his wallet from the safe and CM got it for him. MARLENA Gonsalez aware. A: 78 year old male admitted for AMS transition to SB2 for SNF vs AFC placement. P: CM will follow up with [facility] Services staff (Emily and Sunshine) regarding placement. CM will make additional referrals to AFCs and SNFs today and contact [place] regarding progress. CM will continue to provide support to patient and care team regarding ongoing discharge planning and disposition.
[2018-06-13 07:30] VITALS: BP 111/71; PULSE 62; RESP 20; TEMP 36.6; O2SAT 96
[2018-06-13] MEDS: Multivitamin w/Minerals TAB 1 TAB PO (08:06)
[2018-06-13] MEDS: Lisinopril 5 MG TAB PO (08:07)
[2018-06-13] MEDS: Aspirin 81 MG CHEW PO (08:07)
[2018-06-13] MEDS: amLODIPine 5 MG TAB PO (08:07)
[2018-06-13] MEDS: Thiamine 100 MG TAB PO (08:07)
[2018-06-14 07:48] VITALS: BP 113/78; PULSE 57; RESP 16; TEMP 36.3; O2SAT 95
[2018-06-14] MEDS: Lisinopril 5 MG TAB PO (08:05)
[2018-06-14] MEDS: Multivitamin w/Minerals TAB 1 TAB PO (08:05)
[2018-06-14] MEDS: Thiamine 100 MG TAB PO (08:05)
[2018-06-14] MEDS: Aspirin 81 MG CHEW PO (08:06)
[2018-06-14] MEDS: amLODIPine 5 MG TAB PO (08:06)
--- NOTE | 2018-06-14 13:22 | NUR.NOTE ---
Nursing Note: PCSO reported patient had choked on his food but was able cough it up without any intervention. Patient sitting on the side of the bed, no respiratory difficulty noted. Patient denies any SOB or ever having choked at all.
[2018-06-14 20:00] VITALS: BP 120/73; PULSE 54; RESP 17; TEMP 36.8; O2SAT 96
[2018-06-15] MEDS: Aspirin 81 MG CHEW PO (08:26)
[2018-06-15] MEDS: Lisinopril 5 MG TAB PO (08:26)
[2018-06-15] MEDS: Multivitamin w/Minerals TAB 1 TAB PO (08:26)
[2018-06-15] MEDS: Thiamine 100 MG TAB PO (08:26)
[2018-06-15] MEDS: amLODIPine 5 MG TAB PO (08:27)
[2018-06-15 08:32] VITALS: BP 129/82; PULSE 59; RESP 16; TEMP 36.5; O2SAT 97
[2018-06-15 19:32] VITALS: BP 101/56; PULSE 71; RESP 17; TEMP 36.9; O2SAT 96
[2018-06-16 07:43] VITALS: BP 128/77; PULSE 60; RESP 15; TEMP 36.7; O2SAT 97
[2018-06-16] MEDS: amLODIPine 5 MG TAB PO (09:28)
[2018-06-16] MEDS: Lisinopril 5 MG TAB PO (09:28)
[2018-06-16] MEDS: Aspirin 81 MG CHEW PO (09:28)
[2018-06-16] MEDS: Multivitamin w/Minerals TAB 1 TAB PO (09:28)
[2018-06-16] MEDS: Thiamine 100 MG TAB PO (09:28)
[2018-06-17] MEDS: Lisinopril 5 MG TAB PO (09:11)
[2018-06-17] MEDS: amLODIPine 5 MG TAB PO (09:11)
[2018-06-17] MEDS: Thiamine 100 MG TAB PO (09:11)
[2018-06-17] MEDS: Aspirin 81 MG CHEW PO (09:11)
[2018-06-17] MEDS: Multivitamin w/Minerals TAB 1 TAB PO (09:11)
[2018-06-17 09:18] VITALS: BP 124/76; PULSE 65; RESP 18; TEMP 36.2; O2SAT 96
--- NOTE | 2018-06-17 10:52 | NUR.NOTE ---
Nursing Note: 0940: pt exits room with Bible in his hand and states I'm going to gnosticism, I told everyone a week ago that I wanted to go to gnosticism today, and I'm going. pt insistent on leaving floor. TIERRA, Carissa contacted. CM comes and walks pt to her office. pt spends approximately one hour with CM in her office. RN calls to check in with pt and CM; pt is content. at approximately 1040, pt and CM return to his room. pt given fresh cup of coffee. continue to monitor.
[2018-06-17] MEDS: Mylanta Suspension 30 ML CUP PO (16:24)
[2018-06-17] MEDS: Acetaminophen 325 MG TAB 650 MG PO (16:25)
[2018-06-18 08:00] VITALS: BP 118/78; PULSE 63; RESP 18; TEMP 36.2; O2SAT 96
[2018-06-18] MEDS: Aspirin 81 MG CHEW PO (08:29)
[2018-06-18] MEDS: Thiamine 100 MG TAB PO (08:29)
[2018-06-18] MEDS: Lisinopril 5 MG TAB PO (08:29)
[2018-06-18] MEDS: Multivitamin w/Minerals TAB 1 TAB PO (08:29)
[2018-06-18] MEDS: amLODIPine 5 MG TAB PO (08:29)
--- NOTE | 2018-06-18 11:53 | CHAPLAIN ---
Mina had asked staff again about attending latter day at the [facility]. He is not allowed to do that, so I asked if he would like me to call and see if someone from the latter day could visit him. He asked me to hold off on that. He has been visited at least once by a member of the [facility]. Last week Mina's [place] Bible got went and the pages damaged, so I gave him a new one to replace it. He has been walking the halls carrying the new Bible.
--- NOTE | 2018-06-18 15:24 | PDOC.PROG ---
Date of Service: 06/18/18 Assessment/Plan - Assessment/Plan (1) Discharge planning issues Assessment: Case management continues to make referrals to adults care facilities and SNF facilities but has not obtained placement yet they continue to follow for discharge plan (2) Memory impairment Assessment: Has been stable. He has been pleasant and cooperative with his care will continue to monitor him continue safety precautions while awaiting placement (3) Hypertension Plan: We will continue antihypertensive medications as scheduled (4) History of tobacco use Plan: Patient has been declining nicotine patch, no symptoms of withdrawal. We will discontinue History of Present Illness - History of Present Illness Chief Complaint: denies any issues History of Present Illness: This is a 78-year-old male patient with a history of hypertension dyslipidemia peripheral vascular disease COPD and dementia who is here under swing bed status due to his severe advanced dementia and inability to care for himself at home he has been deemed to not have capacity to leave AGAINST MEDICAL ADVICE. Case management has been following and is seeking placement. Medically he has been stable. Nursing reports he is eating and drinking his bowels and bladder are functioning he has had no chest pain shortness of breath abdominal pain. He has had no rashes or lesions Review of Systems - Review of Systems Constitutional: denies: Fever Respiratory: denies: Cough, Shortness of Breath Cardiovascular: denies: Chest Pain, Palpitations Gastrointestinal: denies: Nausea, Vomiting, Abdominal Pain, Diarrhea Genitourinary: denies: Dysuria, Frequency Skin: denies: Rash, Lesions Neurological: Confusion (Chronically, stable). denies: Change in Speech - Medications/Allergies Allergies/Adverse Reactions: Allergies Allergy/AdvReac Type Severity Reaction Status Date / Time No Known Allergies Allergy Unverified 04/09/18 10:56 Medications: Current Medications Acetaminophen (Tylenol) 650 mg PO Q4H PRN PRN Last Admin: 06/17/18 16:25 Dose: 650 mg Al Hydrox/Mg Hydrox/Simethicone (Mylanta Liquid) 30 ml PO Q2H PRN PRN Last Admin: 06/17/18 16:24 Dose: 30 ml Amlodipine Besylate (Norvasc) 5 mg PO DAILY [facility] Last Admin: 06/18/18 08:29 Dose: 5 mg Aspirin () 81 mg PO DAILY [facility] Last Admin: 06/18/18 08:29 Dose: 81 mg Dimethicone/Zinc Oxide (Tarah Protect Cream) 0 gm TP PRN PRN Iron/Minerals/Multivitamins (Theragran-M) 1 tab PO DAILY [facility] Last Admin: 06/18/18 08:29 Dose: 1 tab Lisinopril (Prinivil) 5 mg PO DAILY [facility] Last Admin: 06/18/18 08:29 Dose: 5 mg Magnesium Hydroxide (Milk Of Magnesia) 30 ml PO DAILY PRN PRN PRN Reason: Constipation Last Admin: 05/01/18 09:01 Dose: 30 ml Miscellaneous (Remove Patch) 1 each TP DAILY PRN Nicotine (Nicoderm Cq) 7 mg TD DAILY PRN PRN Pantoprazole Sodium (Protonix) 20 mg PO [facility] Thiamine HCl (Thiamine) 100 mg PO DAILY [facility] Last Admin: 06/18/18 08:29 Dose: 100 mg Objective - Exam Vitals and I&O: Vital Signs Temp 36.2 C L 06/18/18 08:00 Pulse 63 06/18/18 08:00 Resp 18 06/18/18 08:00 BP 118/78 06/18/18 08:00 Pulse Ox 96 06/18/18 08:00 Intake & Output 06/17/18 06/18/18 06/18/18 23:59 11:59 23:59 Intake Total 500 240 Balance 500 240 Intake: Oral 500 240 Other: Comment pt voids independently in the toilet and flushes pt voids independently in the toilet and flushes, urine not seen. Voiding Methods Toilet Toilet General: Alert, Oriented x3 (Oriented to person), Cooperative, No acute distress HEENT: Atraumatic, Mucous membr. moist/pink Neck: Supple Lungs: Clear to auscultation, Normal air movement Cardiovascular: Regular rate Abdomen: Normal bowel sounds, Soft Extremities: denies: Edema Skin: denies: Rashes Neurological: Normal gait, Normal speech, Strength at 5/5 X4 ext Psych/Mental Status: Mental status NL (Demented), Mood NL
--- NOTE | 2018-06-18 15:28 | PDOC.PROG_ITS ---
Date of Service: 06/18/18 Assessment/Plan - Assessment/Plan (1) Discharge planning issues Assessment: Case management continues to make referrals to adults care facilities and SNF facilities but has not obtained placement yet they continue to follow for discharge plan (2) Memory impairment Assessment: Has been stable. He has been pleasant and cooperative with his care will continue to monitor him continue safety precautions while awaiting placement (3) Hypertension Plan: We will continue antihypertensive medications as scheduled (4) History of tobacco use Plan: Patient has been declining nicotine patch, no symptoms of withdrawal. We will discontinue History of Present Illness - History of Present Illness Chief Complaint: denies any issues History of Present Illness: This is a 78-year-old male patient with a history of hypertension dyslipidemia peripheral vascular disease COPD and dementia who is here under swing bed status due to his severe advanced dementia and inability to care for himself at home he has been deemed to not have capacity to leave AGAINST MEDICAL ADVICE. Case management has been following and is seeking placement. Medically he has been stable. Nursing reports he is eating and drinking his bowels and bladder are functioning he has had no chest pain shortness of breath abdominal pain. He has had no rashes or lesions Review of Systems - Review of Systems Constitutional: denies: Fever Respiratory: denies: Cough, Shortness of Breath Cardiovascular: denies: Chest Pain, Palpitations Gastrointestinal: denies: Nausea, Vomiting, Abdominal Pain, Diarrhea Genitourinary: denies: Dysuria, Frequency Skin: denies: Rash, Lesions Neurological: Confusion (Chronically, stable). denies: Change in Speech - Medications/Allergies Allergies/Adverse Reactions: Allergies Allergy/AdvReac Type Severity Reaction Status Date / Time No Known Allergies Allergy Unverified 04/09/18 10:56 Medications: Current Medications Acetaminophen (Tylenol) 650 mg PO Q4H PRN PRN Last Admin: 06/17/18 16:25 Dose: 650 mg Al Hydrox/Mg Hydrox/Simethicone (Mylanta Liquid) 30 ml PO Q2H PRN PRN Last Admin: 06/17/18 16:24 Dose: 30 ml Amlodipine Besylate (Norvasc) 5 mg PO DAILY [facility] Last Admin: 06/18/18 08:29 Dose: 5 mg Aspirin () 81 mg PO DAILY [facility] Last Admin: 06/18/18 08:29 Dose: 81 mg Dimethicone/Zinc Oxide (Tarah Protect Cream) 0 gm TP PRN PRN Iron/Minerals/Multivitamins (Theragran-M) 1 tab PO DAILY [facility] Last Admin: 06/18/18 08:29 Dose: 1 tab Lisinopril (Prinivil) 5 mg PO DAILY [facility] Last Admin: 06/18/18 08:29 Dose: 5 mg Magnesium Hydroxide (Milk Of Magnesia) 30 ml PO DAILY PRN PRN PRN Reason: Constipation Last Admin: 05/01/18 09:01 Dose: 30 ml Miscellaneous (Remove Patch) 1 each TP DAILY PRN Nicotine (Nicoderm Cq) 7 mg TD DAILY PRN PRN Pantoprazole Sodium (Protonix) 20 mg PO [facility] Thiamine HCl (Thiamine) 100 mg PO DAILY [facility] Last Admin: 06/18/18 08:29 Dose: 100 mg Objective - Exam Vitals and I&O: Vital Signs Temp 36.2 C L 06/18/18 08:00 Pulse 63 06/18/18 08:00 Resp 18 06/18/18 08:00 BP 118/78 06/18/18 08:00 Pulse Ox 96 06/18/18 08:00 Intake & Output 06/17/18 06/18/18 06/18/18 23:59 11:59 23:59 Intake Total 500 240 Balance 500 240 Intake: Oral 500 240 Other: Comment pt voids independently in the toilet and flushes pt voids independently in the toilet and flushes, urine not seen. Voiding Methods Toilet Toilet General: Alert, Oriented x3 (Oriented to person), Cooperative, No acute distress HEENT: Atraumatic, Mucous membr. moist/pink Neck: Supple Lungs: Clear to auscultation, Normal air movement Cardiovascular: Regular rate Abdomen: Normal bowel sounds, Soft Extremities: denies: Edema Skin: denies: Rashes Neurological: Normal gait, Normal speech, Strength at 5/5 X4 ext Psych/Mental Status: Mental status NL (Demented), Mood NL
[2018-06-18] MEDS: Pantoprazole 20 MG TABCR PO (23:26)
[2018-06-19] MEDS: Lisinopril 5 MG TAB PO (09:31)
[2018-06-19] MEDS: Thiamine 100 MG TAB PO (09:31)
[2018-06-19] MEDS: amLODIPine 5 MG TAB PO (09:31)
[2018-06-19] MEDS: Aspirin 81 MG CHEW PO (09:32)
[2018-06-19] MEDS: Multivitamin w/Minerals TAB 1 TAB PO (09:32)
[2018-06-19] MEDS: Pantoprazole 20 MG TABCR PO (22:10)
[2018-06-20] MEDS: Lisinopril 5 MG TAB PO (08:52)
[2018-06-20] MEDS: Multivitamin w/Minerals TAB 1 TAB PO (08:52)
[2018-06-20] MEDS: Aspirin 81 MG CHEW PO (08:52)
[2018-06-20] MEDS: amLODIPine 5 MG TAB PO (08:53)
[2018-06-20] MEDS: Thiamine 100 MG TAB PO (08:53)
--- NOTE | 2018-06-20 15:07 | PDOC.CMPRO ---
Date of Service: 06/20/18 Time of Service: 15:07 Care Management Progress Note S/O: Hayes is currently SB2 awaiting placement. Mina continues to report that he wants to leave. CM visited with him and assured him that referrals are being made. CM reminded Mina that Geneva Hidalgo of [facility] will be visiting on or Monday to assist with placement. A: 78 year old male admitted for AMS transition to SB2 for SNF vs AFC placement. P: CM will continue to follow up with guardian, Geneva Boland, SS and others regarding placement for Mina. CM will continue to provide support to patient and care team regarding discharge planning and disposition.
--- NOTE | 2018-06-20 15:12 | CMPROGNOTE_ITS ---
Date of Service: 06/20/18 Time of Service: 15:07 Care Management Progress Note S/O: Hayes is currently SB2 awaiting placement. Mina continues to report that he wants to leave. CM visited with him and assured him that referrals are being made. CM reminded Mina that Geneva Hidalgo of [facility] will be visiting on or Monday to assist with placement. A: 78 year old male admitted for AMS transition to SB2 for SNF vs AFC placement. P: CM will continue to follow up with guardian, Geneva Boland, SS and others regarding placement for Mina. CM will continue to provide support to patient and care team regarding discharge planning and disposition.
[2018-06-20] MEDS: Pantoprazole 20 MG TABCR PO (22:36)
[2018-06-21 08:11] VITALS: BP 125/74; PULSE 67; RESP 18; TEMP 36.8; O2SAT 96
[2018-06-21] MEDS: Aspirin 81 MG CHEW PO (08:34)
[2018-06-21] MEDS: Multivitamin w/Minerals TAB 1 TAB PO (08:34)
[2018-06-21] MEDS: amLODIPine 5 MG TAB PO (08:35)
[2018-06-21] MEDS: Thiamine 100 MG TAB PO (08:35)
[2018-06-21] MEDS: Lisinopril 5 MG TAB PO (08:35)
[2018-06-21] MEDS: Pantoprazole 20 MG TABCR PO (21:36)
[2018-06-22] MEDS: amLODIPine 5 MG TAB PO (09:39)
[2018-06-22] MEDS: Aspirin 81 MG CHEW PO (09:40)
[2018-06-22] MEDS: Multivitamin w/Minerals TAB 1 TAB PO (09:40)
[2018-06-22] MEDS: Thiamine 100 MG TAB PO (09:40)
[2018-06-22] MEDS: Lisinopril 5 MG TAB PO (09:40)
--- NOTE | 2018-06-22 12:15 | PDOC.CMPRO ---
Date of Service: 06/22/18 Time of Service: 12:15 Care Management Progress Note S/O: Hayes is currently SB2 awaiting placement. Geneva Hidalgo from [facility] met with Mina and CM today regarding AFC placement. Mina was engaged in conversation and pleasant, and continues to state that he wants to leave. A: 78 year old male admitted for AMS transition to SB2 for SNF vs AFC placement. P: CM will continue to follow up with guardian, Geneva Boland and others regarding placement for Mina. CM will continue to provide support to patient and care team regarding discharge planning and disposition.
--- NOTE | 2018-06-22 12:18 | CMPROGNOTE_ITS ---
Date of Service: 06/22/18 Time of Service: 12:15 Care Management Progress Note S/O: Hayes is currently SB2 awaiting placement. Geneva Hidalgo from [facility] met with Mina and CM today regarding AFC placement. Mina was engaged in conversation and pleasant, and continues to state that he wants to leave. A: 78 year old male admitted for AMS transition to SB2 for SNF vs AFC placement. P: CM will continue to follow up with guardian, Geneva Boland and others regarding placement for Mina. CM will continue to provide support to patient and care team regarding discharge planning and disposition.
[2018-06-22 21:31] VITALS: BP 133/75; PULSE 64; RESP 20; TEMP 36.7; O2SAT 97
[2018-06-22] MEDS: Pantoprazole 20 MG TABCR PO (21:31)
[2018-06-22] MEDS: Mylanta Suspension 30 ML CUP PO (22:37)
[2018-06-22] MEDS: Acetaminophen 325 MG TAB 650 MG PO (22:38)
[2018-06-23 08:25] VITALS: BP 132/78; PULSE 63; RESP 18; TEMP 36.1; O2SAT 97
[2018-06-23] MEDS: Lisinopril 5 MG TAB PO (08:25)
[2018-06-23] MEDS: Thiamine 100 MG TAB PO (08:25)
[2018-06-23] MEDS: amLODIPine 5 MG TAB PO (08:25)
[2018-06-23] MEDS: Aspirin 81 MG CHEW PO (08:25)
[2018-06-23] MEDS: Multivitamin w/Minerals TAB 1 TAB PO (08:25)
[2018-06-23] MEDS: Pantoprazole 20 MG TABCR PO (21:31)
--- NOTE | 2018-06-24 07:26 | NUR.NOTE ---
Nursing Note: Pt is resting at this time. Cadre outside pts room.
[2018-06-24] MEDS: amLODIPine 5 MG TAB PO (08:03)
[2018-06-24 08:04] VITALS: BP 129/75; PULSE 76; RESP 18; TEMP 36.4; O2SAT 96
[2018-06-24] MEDS: Thiamine 100 MG TAB PO (08:04)
[2018-06-24] MEDS: Multivitamin w/Minerals TAB 1 TAB PO (08:04)
[2018-06-24] MEDS: Aspirin 81 MG CHEW PO (08:04)
[2018-06-24] MEDS: Lisinopril 5 MG TAB PO (08:04)
[2018-06-24] MEDS: Pantoprazole 20 MG TABCR PO (20:38)
[2018-06-24] MEDS: Milk of Magnesia 30 ML CUP PO (20:38)
[2018-06-25] MEDS: Aspirin 81 MG CHEW PO (08:16)
[2018-06-25] MEDS: Lisinopril 5 MG TAB PO (08:16)
[2018-06-25] MEDS: amLODIPine 5 MG TAB PO (08:16)
[2018-06-25] MEDS: Thiamine 100 MG TAB PO (08:16)
[2018-06-25] MEDS: Multivitamin w/Minerals TAB 1 TAB PO (08:16)
[2018-06-25 08:50] VITALS: BP 121/77; PULSE 66; RESP 18; TEMP 36.2; O2SAT 94
[2018-06-25] MEDS: Pantoprazole 20 MG TABCR PO (21:08)
[2018-06-26] MEDS: Lisinopril 5 MG TAB PO (08:13)
[2018-06-26] MEDS: Multivitamin w/Minerals TAB 1 TAB PO (08:13)
[2018-06-26] MEDS: Thiamine 100 MG TAB PO (08:14)
[2018-06-26] MEDS: Aspirin 81 MG CHEW PO (08:14)
[2018-06-26] MEDS: amLODIPine 5 MG TAB PO (08:14)
[2018-06-26 11:27] VITALS: BP 118/70; PULSE 79; TEMP 36.6
[2018-06-26 11:28] VITALS: BP 118/70; PULSE 79; RESP 19; TEMP 36.6; O2SAT 94
[2018-06-26] MEDS: Pantoprazole 20 MG TABCR PO (22:18)
[2018-06-27] MEDS: Lisinopril 5 MG TAB PO (08:47)
[2018-06-27] MEDS: Thiamine 100 MG TAB PO (08:48)
[2018-06-27] MEDS: amLODIPine 5 MG TAB PO (08:48)
[2018-06-27] MEDS: Multivitamin w/Minerals TAB 1 TAB PO (08:48)
[2018-06-27] MEDS: Aspirin 81 MG CHEW PO (08:48)
[2018-06-27 09:19] VITALS: BP 124/83; PULSE 63; RESP 20; TEMP 35.9; O2SAT 96
[2018-06-27 19:49] VITALS: BP 128/76; PULSE 87; RESP 22; TEMP 37; O2SAT 97
[2018-06-27] MEDS: Pantoprazole 20 MG TABCR PO (20:55)
[2018-06-28 07:35] VITALS: BP 138/82; PULSE 71; RESP 16; TEMP 36.4; O2SAT 93
[2018-06-28] MEDS: Aspirin 81 MG CHEW PO (08:22)
[2018-06-28] MEDS: Multivitamin w/Minerals TAB 1 TAB PO (08:22)
[2018-06-28] MEDS: amLODIPine 5 MG TAB PO (08:22)
[2018-06-28] MEDS: Thiamine 100 MG TAB PO (08:22)
[2018-06-28] MEDS: Lisinopril 5 MG TAB PO (08:22)
[2018-06-28 12:40] VITALS: O2SAT 86
[2018-06-28 12:45] VITALS: BP 123/69; PULSE 79; RESP 24; TEMP 36.4; O2SAT 97
--- NOTE | 2018-06-28 12:51 | NUR.NOTE ---
Nursing Note: Pt came to nurses station reporting SOB and chest discomfort. Pt shaky and using pursed lip breathing. O2 saturation 87%. Placed on 1L of O2, now saturating @ 97%. notified. Chest xray order. Pt reporting decreased chest pain after 5 minuets but still shaky. Going to xray @ this time.
[2018-06-28 13:10] VITALS: BP 123/69; PULSE 79; RESP 24; TEMP 36.9; O2SAT 97
--- NOTE | 2018-06-28 13:16 | DI.RAD_ITS ---
SYMPTOMS/DIAGNOSIS: INCREASING SHORTNESS OF BREATH, LOW O2 SAT PA AND LATERAL CHEST: Comparison is made with [id number]. The heart is normal. The aorta shows mild calcification and is mildly tortuous. Emphysematous changes are again noted. There is no superimposed infiltrate, effusion or pulmonary edema. No pneumothorax is seen. IMPRESSION: Emphysematous changes. No acute abnormality.
--- NOTE | 2018-06-28 13:49 | PDOC.CMACT ---
Care Management Activity Note Mina came into the CM office, as he has been doing quite often these days. He likes to discuss discharge planning and options moving forward. He has been enjoying playing with a metal puzzle with this flex o writer operator and still enjoys his coffee immensely. He often reports he is looking forward to the day he can leave [facility] and smoke a cigarette. The therapy dogs visited him a few days ago and he will visit with staff; joking appropriately throughout the day. It has become apparent Mina lacks much short term memory and he often needs to be reminded where his room is and of his current circumstance. He purses his lips and puffs out air almost continuously when in conversation. He is a pleasure to have around and will visit the CMs in the CM office almost daily while he awaits placement. At this juncture, the guardian reports not feeling confident in allowing Mina out on pass to attend congregational services or visit friends. The goal is for to work with Milly Burk [facility] physician practice coordinator; Víctor on finding an appropriate termite treater helper home for Mina.
--- NOTE | 2018-06-28 13:55 | CMACTNOTE_ITS ---
Care Management Activity Note Mina came into the CM office, as he has been doing quite often these days. He likes to discuss discharge planning and options moving forward. He has been enjoying playing with a metal puzzle with this caption writer and still enjoys his coffee immensely. He often reports he is looking forward to the day he can leave [facility] and smoke a cigarette. The therapy dogs visited him a few days ago and he will visit with staff; joking appropriately throughout the day. It has become apparent Mina lacks much short term memory and he often needs to be reminded where his room is and of his current circumstance. He purses his lips and puffs out air almost continuously when in conversation. He is a pleasure to have around and will visit the CMs in the CM office almost daily while he awaits placement. At this juncture, the guardian reports not feeling confident in allowing Mina out on pass to attend restoration services or visit friends. The goal is for to work with Milly Burk [facility] sports medicine coordinator; Víctor on finding an appropriate termination clerk home for Mina.
[2018-06-28 14:58] VITALS: O2SAT 94
[2018-06-28] MEDS: Pantoprazole 20 MG TABCR PO (20:59)
[2018-06-29 00:05] VITALS: PULSE 62; RESP 16
[2018-06-29] MEDS: Multivitamin w/Minerals TAB 1 TAB PO (08:47)
[2018-06-29] MEDS: Lisinopril 5 MG TAB PO (08:47)
[2018-06-29] MEDS: amLODIPine 5 MG TAB PO (08:47)
[2018-06-29] MEDS: Thiamine 100 MG TAB PO (08:47)
[2018-06-29] MEDS: Aspirin 81 MG CHEW PO (08:47)
[2018-06-29 08:54] VITALS: BP 126/80; PULSE 67; RESP 20; TEMP 36.6; O2SAT 93
[2018-06-29 10:00] VITALS: O2SAT 94
[2018-06-29] MEDS: Budesonide/Formoterol 160/4.5 6 GM 60 PUFF INH IH ×2 (11:52→19:43)
[2018-06-29] MEDS: Pantoprazole 20 MG TABCR PO (21:27)
[2018-06-30 07:35] VITALS: BP 135/81; PULSE 67; RESP 18; TEMP 36.6; O2SAT 94
[2018-06-30] MEDS: Aspirin 81 MG CHEW PO (07:40)
[2018-06-30] MEDS: amLODIPine 5 MG TAB PO (07:40)
[2018-06-30] MEDS: Multivitamin w/Minerals TAB 1 TAB PO (07:40)
[2018-06-30] MEDS: Thiamine 100 MG TAB PO (07:40)
[2018-06-30] MEDS: Lisinopril 5 MG TAB PO (07:40)
[2018-06-30 14:25] VITALS: BP 128/78; PULSE 75; RESP 18; TEMP 36.5; O2SAT 95
[2018-06-30] MEDS: Budesonide/Formoterol 160/4.5 6 GM 60 PUFF INH IH (20:25)
[2018-06-30] MEDS: Pantoprazole 20 MG TABCR PO (22:46)
[2018-07-01] MEDS: Thiamine 100 MG TAB PO (08:05)
[2018-07-01] MEDS: Multivitamin w/Minerals TAB 1 TAB PO (08:05)
[2018-07-01] MEDS: Aspirin 81 MG CHEW PO (08:05)
[2018-07-01] MEDS: Lisinopril 5 MG TAB PO (08:05)
[2018-07-01] MEDS: amLODIPine 5 MG TAB PO (08:05)
[2018-07-01] MEDS: Budesonide/Formoterol 160/4.5 6 GM 60 PUFF INH IH ×2 (09:26→19:41)
[2018-07-01 10:06] VITALS: O2SAT 93
[2018-07-01 13:01] VITALS: BP 117/68; PULSE 91; RESP 18; TEMP 36.5; O2SAT 94
--- NOTE | 2018-07-01 15:35 | PDOC.CMPRO ---
- If Service Date Differs Date of service: 07/01/18 Time of Service: 15:35 Care Management Progress Note S/O: CM met with Mina several times over the last two days. He does not understand why he cannot leave the hospital and states he feels like he is in prison. CM reviewed reason related to hospital admission and encouraged Mina to express his feelings. Mina would like to attend a adventist service. Eddie was called in today to meet with patient. CM offered to have Mina meet with his [place] preschool teacher aide in the chapel if he desires once Kelso is able to contact preschool teacher aide. Mina was satisfied with the plan. CM provided Mina with the update on placement and that currently there is no home or LTC facility identified. Pt continues to have a one on one patient observer with him. A: Mina is a 78 year old male with dementia awaiting fci facility vs adult residential. With a history of Dementia. P LTC facility or adult facility residential once one is identified. CM to continue to provide support to pt, and care team ongoing discharge planning and disposition.
--- NOTE | 2018-07-01 15:41 | CMPROGNOTE_ITS ---
- If Service Date Differs Date of service: 07/01/18 Time of Service: 15:35 Care Management Progress Note S/O: CM met with Mina several times over the last two days. He does not understand why he cannot leave the hospital and states he feels like he is in intermediate. CM reviewed reason related to hospital admission and encouraged Mina to express his feelings. Mina would like to attend a roman catholic service. Eddie was called in today to meet with patient. CM offered to have Mina meet with his [employer] electric plater in the chapel if he desires once Cash is able to contact electric plater. Mina was satisfied with the plan. CM provided Mina with the update on placement and that currently there is no home or LTC facility identified. Pt continues to have a one on one patient observer with him. A: Mina is a 78 year old male with dementia awaiting custodial facility vs adult assisted. With a history of Dementia. P LTC facility or adult facility assisted once one is identified. CM to continue to provide support to pt, and care team ongoing discharge planning and disposition.
[2018-07-01 16:00] VITALS: BP 128/74; PULSE 88; RESP 18; TEMP 36.5; O2SAT 95
[2018-07-01] MEDS: Pantoprazole 20 MG TABCR PO (19:41)
--- NOTE | 2018-07-01 23:13 | NUR.NOTE ---
Nursing Note: 2100 - Pt is alert,aware of self can be forgetful at times,very cooperate,pleasant and agreeable,has been up fully dressing tends to frequently walk about room or out in lockwood accompanied by a cadre this shift .Pt has been voiding independently in toilet .He has a good appetite eating 100% of dinner and will have snacks/drinks between meals .He denies any pain discomfort can become alittle short of breathe when ambulating and can be easily redirected to a task .
[2018-07-02 07:19] VITALS: BP 121/76; PULSE 67; RESP 18; TEMP 37.4; O2SAT 93
[2018-07-02 07:20] VITALS: O2SAT 92
[2018-07-02] MEDS: Budesonide/Formoterol 160/4.5 6 GM 60 PUFF INH IH ×2 (07:24→20:25)
[2018-07-02] MEDS: Multivitamin w/Minerals TAB 1 TAB PO (07:31)
[2018-07-02] MEDS: Thiamine 100 MG TAB PO (07:31)
[2018-07-02] MEDS: amLODIPine 5 MG TAB PO (07:31)
[2018-07-02] MEDS: Lisinopril 5 MG TAB PO (07:31)
[2018-07-02] MEDS: Aspirin 81 MG CHEW PO (07:31)
--- NOTE | 2018-07-02 09:54 | PDOC.CMPRO ---
- If Service Date Differs Date of service: 07/02/18 Time of Service: 09:54
--- NOTE | 2018-07-02 15:25 | CHAPLAIN ---
Mina asked a few times to be connected to the [facility]. Yesterday (07/01) I called and left a message for Pastor Daniele Dorman. Today I called and spoke with an care administrative tech who said she would ask the parole officer, Pastor Tom, to see if he can visit Mina this afternoon. She also said she would mention to Pastor Dorman that Mina would like someone to visit him on Sundays if possible. I let Mina know all this.
[2018-07-02 19:25] VITALS: BP 111/70; PULSE 67; RESP 18; TEMP 37.2; O2SAT 93
[2018-07-02] MEDS: Pantoprazole 20 MG TABCR PO (21:17)
[2018-07-03 07:40] VITALS: BP 130/83; PULSE 66; RESP 18; TEMP 36.6; O2SAT 93
[2018-07-03 07:45] VITALS: O2SAT 93
[2018-07-03] MEDS: Aspirin 81 MG CHEW PO (09:22)
[2018-07-03] MEDS: amLODIPine 5 MG TAB PO (09:22)
[2018-07-03] MEDS: Lisinopril 5 MG TAB PO (09:22)
[2018-07-03] MEDS: Multivitamin w/Minerals TAB 1 TAB PO (09:23)
[2018-07-03] MEDS: Thiamine 100 MG TAB PO (09:23)
[2018-07-03] MEDS: Budesonide/Formoterol 160/4.5 6 GM 60 PUFF INH IH ×2 (10:10→20:39)
--- NOTE | 2018-07-03 13:28 | PDOC.CMPRO ---
- If Service Date Differs Date of service: 07/03/18 Time of Service: 13:28 Care Management Progress Note Bill informed CM that he did not want to be at the hospital any longer and that he was going to leave. CM reiterated that staff are working on finding a suitable housing situation for him and expressed understanding of his anger. CM will continue to provide support to Bill and care team regarding discharge planning and disposition. CM to follow up with Geneva Mccann this week. - MH Services (Omit if N/A) Current MH Services: Other (AFC)
[2018-07-03] MEDS: Pantoprazole 20 MG TABCR PO (20:40)
[2018-07-03 21:03] VITALS: BP 124/82; PULSE 70; RESP 19; TEMP 36.7; O2SAT 96
[2018-07-04 07:35] VITALS: BP 126/83; PULSE 69; RESP 19; TEMP 36.7; O2SAT 94
[2018-07-04] MEDS: Budesonide/Formoterol 160/4.5 6 GM 60 PUFF INH IH ×2 (09:19→21:46)
[2018-07-04 09:25] VITALS: O2SAT 94
[2018-07-04] MEDS: Aspirin 81 MG CHEW PO (09:28)
[2018-07-04] MEDS: Lisinopril 5 MG TAB PO (09:28)
[2018-07-04] MEDS: Multivitamin w/Minerals TAB 1 TAB PO (09:28)
[2018-07-04] MEDS: amLODIPine 5 MG TAB PO (09:28)
[2018-07-04] MEDS: Thiamine 100 MG TAB PO (09:28)
--- NOTE | 2018-07-04 14:23 | PDOC.CMACT ---
- If Service Date Differs Date of service: 07/04/18 Time of Service: 14:23 Care Management Activity Note Mina has been ambulating independently in the hallways as he always does and has visited the CM office several times today. CM asked Mina what activities he might be interested in, providing examples such as books, drawing, puzzles and music. Mina stated that he was not interested in any of these. CM and Mina spoke about plants and he reported that he liked plants and would like one in his room. [employer] purchased two plants for Mina. [facility] informed TIERRA that Mina had only one pair of underwear. TIERRA purchased underwear on line from [employer]. TIERRA contacted Chaplain Gillette regarding [facility] staff visiting per Mina's request. Leta reports that she has contacted them two times and will do so once again. TIERRA will continue to provide support to Mina and his care team in regards to discharge planning and disposition.
--- NOTE | 2018-07-04 14:38 | CMACTNOTE_ITS ---
- If Service Date Differs Date of service: 07/04/18 Time of Service: 14:23 Care Management Activity Note Mina has been ambulating independently in the hallways as he always does and has visited the CM office several times today. CM asked Mina what activities he might be interested in, providing examples such as books, drawing, puzzles and music. Mina stated that he was not interested in any of these. CM and Mina spoke about plants and he reported that he liked plants and would like one in his room. TIERRA purchased two plants for Mina. [facility] informed TIERRA that Mina had only one pair of underwear. TIERRA purchased underwear on line from [employer]. TIERRA contacted Chaplain Gillette regarding [facility] staff visiting per Mina' s request. Leta reports that she has contacted them two times and will do so once again. TIERRA will continue to provide support to Mina and his care team in regards to discharge planning and disposition.
[2018-07-04] MEDS: Pantoprazole 20 MG TABCR PO (21:46)
--- NOTE | 2018-07-04 22:25 | NUR.NOTE ---
Nursing Note: Pt dressed in street clothes in bed asleep ,awoke by 100 the dinner ate most of dinner had multiple cups of decaf coffee this shift .Pt appears calm,relaxed ,pleasant conversing with cadre/staff.Pt up independent walking lockwood /room with a steady gait Pt denies sob ,but when walking long distance noted alittle sob and will stop to rest.Pt is cooperative taking PO meds ,denies any pain/discomfort this shift .cadre present all time
[2018-07-05 07:35] VITALS: BP 114/70; PULSE 86; RESP 18; TEMP 36.9; O2SAT 98
[2018-07-05] MEDS: Multivitamin w/Minerals TAB 1 TAB PO (08:08)
[2018-07-05] MEDS: Aspirin 81 MG CHEW PO (08:08)
[2018-07-05] MEDS: Thiamine 100 MG TAB PO (08:08)
[2018-07-05] MEDS: Lisinopril 5 MG TAB PO (08:08)
[2018-07-05] MEDS: amLODIPine 5 MG TAB PO (08:13)
[2018-07-05] MEDS: Budesonide/Formoterol 160/4.5 6 GM 60 PUFF INH IH ×2 (11:20→21:22)
[2018-07-05 12:51] VITALS: O2SAT 96
[2018-07-05] MEDS: Pantoprazole 20 MG TABCR PO (21:22)
[2018-07-06 08:00] VITALS: BP 116/72; PULSE 74; RESP 18; TEMP 36.2; O2SAT 95
[2018-07-06] MEDS: amLODIPine 5 MG TAB PO (08:04)
[2018-07-06] MEDS: Thiamine 100 MG TAB PO (08:04)
[2018-07-06] MEDS: Multivitamin w/Minerals TAB 1 TAB PO (08:04)
[2018-07-06] MEDS: Lisinopril 5 MG TAB PO (08:04)
[2018-07-06] MEDS: Aspirin 81 MG CHEW PO (08:04)
[2018-07-06 08:30] VITALS: O2SAT 94
[2018-07-06] MEDS: Budesonide/Formoterol 160/4.5 6 GM 60 PUFF INH IH ×2 (09:19→20:56)
[2018-07-06] MEDS: Pantoprazole 20 MG TABCR PO (20:56)
[2018-07-07 07:12] VITALS: BP 104/53; PULSE 83; RESP 17; TEMP 37; O2SAT 93
[2018-07-07] MEDS: amLODIPine 5 MG TAB PO (10:06)
[2018-07-07] MEDS: Aspirin 81 MG CHEW PO (10:06)
[2018-07-07] MEDS: Thiamine 100 MG TAB PO (10:06)
[2018-07-07] MEDS: Multivitamin w/Minerals TAB 1 TAB PO (10:07)
[2018-07-07] MEDS: Lisinopril 5 MG TAB PO (10:07)
[2018-07-07] MEDS: Budesonide/Formoterol 160/4.5 6 GM 60 PUFF INH IH ×2 (10:14→21:34)
[2018-07-07 10:15] VITALS: O2SAT 94
[2018-07-07 11:02] VITALS: BP 106/73; PULSE 66; RESP 21; TEMP 35.9; O2SAT 90
[2018-07-07] MEDS: Pantoprazole 20 MG TABCR PO (21:34)
[2018-07-08 07:24] VITALS: BP 109/65; PULSE 58; RESP 18; TEMP 36.3; O2SAT 94
[2018-07-08] MEDS: Aspirin 81 MG CHEW PO (08:40)
[2018-07-08] MEDS: Lisinopril 5 MG TAB PO (08:40)
[2018-07-08] MEDS: Multivitamin w/Minerals TAB 1 TAB PO (08:40)
[2018-07-08] MEDS: Thiamine 100 MG TAB PO (08:40)
[2018-07-08] MEDS: amLODIPine 5 MG TAB PO (08:40)
[2018-07-08] MEDS: Budesonide/Formoterol 160/4.5 6 GM 60 PUFF INH IH ×2 (09:40→19:16)
[2018-07-08] MEDS: Acetaminophen 325 MG TAB 650 MG PO ×2 (11:05→19:16)
[2018-07-08] MEDS: Pantoprazole 20 MG TABCR PO (19:16)
[2018-07-08] MEDS: Mylanta Suspension 30 ML CUP PO (19:17)
--- NOTE | 2018-07-08 23:09 | NUR.NOTE ---
Nursing Note: 3-11 shift assessment -Pt alert,aware,oriented ,sometimes can be forgetful to where his room is,has been up dressed in street clothes walking in room /lockwood most of shift.Pt prefers to drink coffee frequently and is given decaf- has snacks/sandwichs /ice cream offered this shift and eats well by self.Pt has been cooperative ,pleasant ,conversing with staff/cadre .Pt walked full loop x 10 ,plus up walking in room .At 1900 pt given mylanta for upset stomache r/t eating spicey slice of pizza and felt better afterwards.
[2018-07-09 07:25] VITALS: BP 124/78; PULSE 66; RESP 18; TEMP 36.4; O2SAT 93
[2018-07-09] MEDS: Thiamine 100 MG TAB PO (07:38)
[2018-07-09] MEDS: Aspirin 81 MG CHEW PO (07:38)
[2018-07-09] MEDS: Lisinopril 5 MG TAB PO (07:38)
[2018-07-09] MEDS: Multivitamin w/Minerals TAB 1 TAB PO (07:38)
[2018-07-09] MEDS: amLODIPine 5 MG TAB PO (07:38)
[2018-07-09] MEDS: Budesonide/Formoterol 160/4.5 6 GM 60 PUFF INH IH ×2 (10:59→22:11)
[2018-07-09] MEDS: Pantoprazole 20 MG TABCR PO (22:11)
--- NOTE | 2018-07-10 08:38 | NS.NUTBLAN_ITS ---
Assessment: Mr. Rosenberg continues to have good PO intake. In this past week it has been variable, but generally it has been excellent. He is 61.3 kg. His BMI is 20.5 kg/m2 which is on the low end of normal. He has had a 15% weight gain in three months which is significant. His weight three months ago was 53.3 kg/117lbs and his BMI at that time was 17.8 kg/m2 which is c/w underweight. Nutritional Diagnosis: Significant intentional weight gain related to increased energy intake as evidenced by 15% weight gain in three months. Intervention: Continue with current nutrition care plan which consists of visiting Mr. Rosenberg prior to meals for his selection of a regular diet and allowing him to have snacks ad jorge. Monitoring and Evaluation: 1. Will continue to monitor PO intake and weight. 2. Will evaluate nutrition care plan on-going and adjust as needed.
[2018-07-10 08:51] VITALS: O2SAT 93
[2018-07-10] MEDS: Budesonide/Formoterol 160/4.5 6 GM 60 PUFF INH IH ×2 (08:51→20:25)
[2018-07-10] MEDS: Thiamine 100 MG TAB PO (09:00)
[2018-07-10] MEDS: Lisinopril 5 MG TAB PO (09:00)
[2018-07-10] MEDS: Multivitamin w/Minerals TAB 1 TAB PO (09:00)
[2018-07-10] MEDS: amLODIPine 5 MG TAB PO (09:00)
[2018-07-10] MEDS: Aspirin 81 MG CHEW PO (09:00)
[2018-07-10 11:17] VITALS: BP 119/79; PULSE 69; RESP 20; TEMP 36.9; O2SAT 91
[2018-07-10] MEDS: Pantoprazole 20 MG TABCR PO (21:39)
[2018-07-11 08:55] VITALS: O2SAT 92
[2018-07-11] MEDS: Budesonide/Formoterol 160/4.5 6 GM 60 PUFF INH IH ×2 (08:59→19:23)
[2018-07-11 09:07] VITALS: BP 118/67; PULSE 67; RESP 18; TEMP 36.5; O2SAT 95
[2018-07-11] MEDS: Lisinopril 5 MG TAB PO (09:09)
[2018-07-11] MEDS: Thiamine 100 MG TAB PO (09:09)
[2018-07-11] MEDS: Multivitamin w/Minerals TAB 1 TAB PO (09:09)
[2018-07-11] MEDS: amLODIPine 5 MG TAB PO (09:09)
[2018-07-11] MEDS: Aspirin 81 MG CHEW PO (09:09)
--- NOTE | 2018-07-11 14:31 | CMACTNOTE_ITS ---
- If Service Date Differs Date of service: 07/11/18 Time of Service: 14:26 Care Management Activity Note Mina has been ambulating independently in the hallways as he always does and has visited the office several times today. purchased plants for Mina's room which he enjoys watering daily. Mina refused any other activities such as coloring, reading etc. Multiple calls to Geneva Hidalgo today with no response. Will continue to follow up with her. Sunshine Whitley from [facility] reports that she does not have suitable housing at this time. Mina's car will be moved from it's current location to behind the hospital by Wade Osborne. will continue to provide support to Mina and his care team in regards to discharge planning and disposition.
[2018-07-11] MEDS: Pantoprazole 20 MG TABCR PO (19:24)
[2018-07-12 08:10] VITALS: BP 134/77; PULSE 60; RESP 17; TEMP 37.1; O2SAT 95
[2018-07-12] MEDS: amLODIPine 5 MG TAB PO (08:11)
[2018-07-12] MEDS: Thiamine 100 MG TAB PO (08:11)
[2018-07-12] MEDS: Aspirin 81 MG CHEW PO (08:11)
[2018-07-12] MEDS: Lisinopril 5 MG TAB PO (08:11)
[2018-07-12] MEDS: Multivitamin w/Minerals TAB 1 TAB PO (08:11)
[2018-07-12 09:47] VITALS: O2SAT 92
[2018-07-12 13:12] VITALS: RESP 1; RESP 24; RESP 8; O2SAT 93
[2018-07-12] MEDS: Albuterol/Ipratropium 3 ML UPD VIAL UPD (13:12)
[2018-07-12] MEDS: Budesonide/Formoterol 160/4.5 6 GM 60 PUFF INH IH (20:47)
[2018-07-12] MEDS: Pantoprazole 20 MG TABCR PO (20:47)
[2018-07-13 07:45] VITALS: BP 131/91; PULSE 66; RESP 16; TEMP 36.3; O2SAT 95
[2018-07-13] MEDS: Multivitamin w/Minerals TAB 1 TAB PO (08:05)
[2018-07-13] MEDS: Thiamine 100 MG TAB PO (08:05)
[2018-07-13] MEDS: Lisinopril 5 MG TAB PO (08:05)
[2018-07-13] MEDS: amLODIPine 5 MG TAB PO (08:05)
[2018-07-13] MEDS: Aspirin 81 MG CHEW PO (08:05)
[2018-07-13 09:25] VITALS: O2SAT 94
[2018-07-13] MEDS: Budesonide/Formoterol 160/4.5 6 GM 60 PUFF INH IH ×2 (09:25→20:21)
--- NOTE | 2018-07-13 13:58 | PDOC.CMPRO ---
- If Service Date Differs Date of service: 07/13/18 Time of Service: 13:58 Care Management Progress Note Bill will be transporting to the [facility] on Monday, July 16 for a guardianship hearing with his temporary guardian, Kya Mcguire. Kya will transport Bill via private vehicle and return him to [facility] following his hearing. Geneva Hidalgo from [facility] has reported that she is having trouble finding willing homes for Bill but that she is continuing to research possibilities. CM will continue to provide support to patient and care team regarding discharge planning and disposition.
--- NOTE | 2018-07-13 14:03 | CMPROGNOTE_ITS ---
- If Service Date Differs Date of service: 07/13/18 Time of Service: 13:58 Care Management Progress Note Bill will be transporting to the [facility] on Monday, July 16 for a guardianship hearing with his temporary guardian, Kya Mcguire. Kya will transport Bill via private vehicle and return him to [facility] following his hearing. Geneva Hidalgo from [facility] has reported that she is having trouble finding willing homes for Bill but that she is continuing to research possibilities. CM will continue to provide support to patient and care team regarding discharge planning and disposition.
[2018-07-13] MEDS: Pantoprazole 20 MG TABCR PO (22:24)
[2018-07-14] MEDS: Multivitamin w/Minerals TAB 1 TAB PO (08:12)
[2018-07-14] MEDS: Thiamine 100 MG TAB PO (08:12)
[2018-07-14] MEDS: Lisinopril 5 MG TAB PO (08:12)
[2018-07-14] MEDS: Aspirin 81 MG CHEW PO (08:12)
[2018-07-14] MEDS: amLODIPine 5 MG TAB PO (08:12)
[2018-07-14 10:30] VITALS: BP 108/70; PULSE 70; RESP 20; TEMP 35.7; O2SAT 96
[2018-07-14] MEDS: Budesonide/Formoterol 160/4.5 6 GM 60 PUFF INH IH ×2 (10:54→20:41)
[2018-07-14] MEDS: Pantoprazole 20 MG TABCR PO (20:41)
[2018-07-15] MEDS: Thiamine 100 MG TAB PO (08:25)
[2018-07-15] MEDS: Multivitamin w/Minerals TAB 1 TAB PO (08:25)
[2018-07-15] MEDS: Aspirin 81 MG CHEW PO (08:25)
[2018-07-15] MEDS: amLODIPine 5 MG TAB PO (08:25)
[2018-07-15] MEDS: Lisinopril 5 MG TAB PO (08:25)
[2018-07-15 08:55] VITALS: BP 111/70; PULSE 56; RESP 17; TEMP 36.7; O2SAT 94
[2018-07-15] MEDS: Budesonide/Formoterol 160/4.5 6 GM 60 PUFF INH IH ×2 (10:04→20:03)
[2018-07-15] MEDS: Pantoprazole 20 MG TABCR PO (21:19)
[2018-07-16] MEDS: Multivitamin w/Minerals TAB 1 TAB PO (08:13)
[2018-07-16] MEDS: Lisinopril 5 MG TAB PO (08:13)
[2018-07-16] MEDS: amLODIPine 5 MG TAB PO (08:13)
[2018-07-16] MEDS: Thiamine 100 MG TAB PO (08:13)
[2018-07-16] MEDS: Aspirin 81 MG CHEW PO (08:13)
[2018-07-16] MEDS: Budesonide/Formoterol 160/4.5 6 GM 60 PUFF INH IH ×2 (09:53→19:31)
--- NOTE | 2018-07-16 10:49 | PDOC.CMPRO ---
- If Service Date Differs Date of service: 07/16/18 Time of Service: 10:49 Care Management Progress Note Mina was due to go to court today with his guardian, Kya, for a guardianship hearing. Mina was informed that he was going by a CONCRETE BOOM OPERATOR and was worrying about why he was due in court. CM spoke with him at 0900 and assured Mina that he was not in trouble and that the hearing was for guardianship. At 10:30am when Kya arrived, Mina refused to go with her. CM, ISAAC Grider and Kya discussed the trip with Mina and it was determined that Mina's presence at the hearing was not mandatory and that he did not have to go. Kya will stop back in following court to update Mina and CM. Kya stopped in following court and reported that the guardianship hearing went fine and she remains Mina's guardian. Kya reported that Geneva Hidalgo from [facility] went to the hearing and will be stopping in to see Mina this afternoon. CM will continue to offer support to Mina and care team regarding discharge planning and disposition.
--- NOTE | 2018-07-16 10:52 | CMPROGNOTE_ITS ---
- If Service Date Differs Date of service: 07/16/18 Time of Service: 10:49 Care Management Progress Note Mina was due to go to court today with his guardian, Kya, for a guardianship hearing. Mina was informed that he was going by a ENVIRONMENTAL STUDIES PROGRAM DIRECTOR and was worrying about why he was due in court. CM spoke with him at 0900 and assured Mina that he was not in trouble and that the hearing was for guardianship. At 10:30am when Kya arrived, Mina refused to go with her. CM, ISAAC Grider and Kya discussed the trip with Mina and it was determined that Mina's presence at the hearing was not mandatory and that he did not have to go. Kya will stop back in following court to update Mina and CM. Kya stopped in following court and reported that the guardianship hearing went fine and she remains Mina's guardian. Kya reported that Geneva Hidalgo from [facility] went to the hearing and will be stopping in to see Mina this afternoon. CM will continue to offer support to Mina and care team regarding discharge planning and disposition.
[2018-07-16 13:28] VITALS: BP 106/67; PULSE 62; RESP 18; TEMP 36.2; O2SAT 94
[2018-07-16] MEDS: Pantoprazole 20 MG TABCR PO (21:19)
[2018-07-17 07:15] VITALS: O2SAT 97
[2018-07-17] MEDS: Budesonide/Formoterol 160/4.5 6 GM 60 PUFF INH IH ×2 (07:15→19:36)
[2018-07-17] MEDS: amLODIPine 5 MG TAB PO (08:36)
[2018-07-17] MEDS: Multivitamin w/Minerals TAB 1 TAB PO (08:36)
[2018-07-17] MEDS: Lisinopril 5 MG TAB PO (08:36)
[2018-07-17] MEDS: Aspirin 81 MG CHEW PO (08:36)
[2018-07-17] MEDS: Thiamine 100 MG TAB PO (08:36)
[2018-07-17 10:48] VITALS: BP 134/90; PULSE 75; RESP 18; TEMP 36; O2SAT 94
[2018-07-17] MEDS: Pantoprazole 20 MG TABCR PO (23:39)
[2018-07-18 08:30] VITALS: O2SAT 93
[2018-07-18] MEDS: Budesonide/Formoterol 160/4.5 6 GM 60 PUFF INH IH ×2 (08:36→20:59)
[2018-07-18] MEDS: amLODIPine 5 MG TAB PO (09:28)
[2018-07-18] MEDS: Multivitamin w/Minerals TAB 1 TAB PO (09:28)
[2018-07-18] MEDS: Lisinopril 5 MG TAB PO (09:28)
[2018-07-18] MEDS: Aspirin 81 MG CHEW PO (09:28)
[2018-07-18] MEDS: Thiamine 100 MG TAB PO (09:28)
[2018-07-18 11:00] VITALS: BP 110/72; PULSE 65; RESP 22; TEMP 36.3; O2SAT 98
[2018-07-18] MEDS: Pantoprazole 20 MG TABCR PO (20:59)
[2018-07-19 07:40] VITALS: BP 143/86; PULSE 78; RESP 20; TEMP 35.9; O2SAT 92
[2018-07-19 07:50] VITALS: O2SAT 94
[2018-07-19] MEDS: Budesonide/Formoterol 160/4.5 6 GM 60 PUFF INH IH ×2 (07:57→20:00)
[2018-07-19] MEDS: amLODIPine 5 MG TAB PO (09:15)
[2018-07-19] MEDS: Multivitamin w/Minerals TAB 1 TAB PO (09:15)
[2018-07-19] MEDS: Thiamine 100 MG TAB PO (09:15)
[2018-07-19] MEDS: Aspirin 81 MG CHEW PO (09:15)
[2018-07-19] MEDS: Lisinopril 5 MG TAB PO (09:15)
--- NOTE | 2018-07-19 13:02 | W.PM.PROGNOT ---
Assessment and Plan (1) Memory impairment: Current visit: No Status: Acute Advanced dementia. Care management is working to get him placed in an adult skilled nursing. He now has a court appointed guardian. Continue to work on placment. (2) Discharge planning issues: Current visit: No Status: Acute He is a FULL CODE. This case was discussed with Dr. Hamm who is in agreement. (3) Hypertension: Current visit: Yes Status: Acute Blood pressure stable. Continue current regimen. Subjective Interval history since last seen: Mina Rosenberg is a 78-year-old male patient with a history of hypertension, dyslipidemia, peripheral vascular disease, COPD and dementia who is here under swing bed status due to his severe advanced dementia and inability to care for himself at home. The care managers are working to get him placed. He now has a court appointed guardian. He has been medically stable. He continues to ambulate around the unit frequently. He continues to have a constant patient observer. His vital signs are stable. When questioned, he denies chest pain, pressure, shortness of breath, wheezing. He reports a chronic cough. He states he is eating and drinking and tolerating his diet well. Nursing has not verbalized any concerns recently. Exam Const General: cooperative, healthy appearing, comfortable and no acute distress Orientation: alert, awake and oriented to person [facility] Head: normocephalic and atraumatic Mouth: moist mucous membranes Neck Neck: supple Lymphatic: no lymphadenopathy noted Resp Effort & Inspection: normal respiratory effort Auscultation: clear to auscultation bilaterally Cardio Rate: regular rate Heart Sounds: S1 normal, S2 normal, no click, no gallops, no murmurs and no rubs GI Palpation: soft (thin.), no hepatosplenomegaly, no masses and nontender Auscultation: normal bowel sounds Skin General skin exam: no rashes or lesions noted Neuro General: confused (Advanced dementia.) Speech: speech normal Gait: normal gait Motor: strength 5/5 throughout Extrem General: full ROM, normal gait and edema (+1 pitting edmea to LLE.) Objective Objective Clinical Data: Vital Signs Temperature 35.9 C L 07/19/18 07:40 Temperature Source Tympanic 07/19/18 07:40 Pulse 78 07/19/18 07:40 Pulse Rhythm Regular 07/19/18 08:29 Respiratory Rate 20 07/19/18 07:40 Respiratory Effort Non-Labored 07/19/18 08:29 Respiratory Depth Normal 07/19/18 08:29 Respiratory Pattern Normal 07/19/18 08:29 Blood Pressure 143/86 H 07/19/18 07:40 Pulse Oximetry 94 L 07/19/18 07:50 Oxygen Delivery Method Room Air 07/19/18 07:50 Oxygen Flow Rate 0 07/19/18 07:50 Pain Level 0 07/19/18 07:40 Comment 07/01/18 13:01 Intake & Output 07/18/18 07/19/18 07/19/18 23:59 11:59 23:59 Intake Total 540 / 540 360 / 360 Balance 540 / 540 360 / 360 Weight 60.7 kg Intake: Oral 540 / 540 360 / 360 Other: Voiding Methods Toilet Toilet
--- NOTE | 2018-07-19 13:07 | PGE_ITS ---
Assessment and Plan (1) Memory impairment: Current visit: No Status: Acute Advanced dementia. Care management is working to get him placed in an adult snf. He now has a court appointed guardian. Continue to work on placment. (2) Discharge planning issues: Current visit: No Status: Acute He is a FULL CODE. This case was discussed with Dr. Hamm who is in agreement. (3) Hypertension: Current visit: Yes Status: Acute Blood pressure stable. Continue current regimen. Subjective Interval history since last seen: Mina Rosenberg is a 78-year-old male patient with a history of hypertension, dyslipidemia, peripheral vascular disease, COPD and dementia who is here under swing bed status due to his severe advanced dementia and inability to care for himself at home. The care managers are working to get him placed. He now has a court appointed guardian. He has been medically stable. He continues to ambulate around the unit frequently. He continues to have a constant patient observer. His vital signs are stable. When questioned, he denies chest pain, pressure, shortness of breath, wheezing. He reports a chronic cough. He states he is eating and drinking and tolerating his diet well. Nursing has not verbalized any concerns recently. Exam Const General: cooperative, healthy appearing, comfortable and no acute distress Orientation: alert, awake and oriented to person [facility] Head: normocephalic and atraumatic Mouth: moist mucous membranes Neck Neck: supple Lymphatic: no lymphadenopathy noted Resp Effort & Inspection: normal respiratory effort Auscultation: clear to auscultation bilaterally Cardio Rate: regular rate Heart Sounds: S1 normal, S2 normal, no click, no gallops, no murmurs and no rubs GI Palpation: soft (thin.), no hepatosplenomegaly, no masses and nontender Auscultation: normal bowel sounds Skin General skin exam: no rashes or lesions noted Neuro General: confused (Advanced dementia.) Speech: speech normal Gait: normal gait Motor: strength 5/5 throughout Extrem General: full ROM, normal gait and edema (+1 pitting edmea to LLE.) Objective Objective Clinical Data: Vital Signs Temperature 35.9 C L 07/19/18 07:40 Temperature Source Tympanic 07/19/18 07:40 Pulse 78 07/19/18 07:40 Pulse Rhythm Regular 07/19/18 08:29 Respiratory Rate 20 07/19/18 07:40 Respiratory Effort Non-Labored 07/19/18 08:29 Respiratory Depth Normal 07/19/18 08:29 Respiratory Pattern Normal 07/19/18 08:29 Blood Pressure 143/86 H 07/19/18 07:40 Pulse Oximetry 94 L 07/19/18 07:50 Oxygen Delivery Method Room Air 07/19/18 07:50 Oxygen Flow Rate 0 07/19/18 07:50 Pain Level 0 07/19/18 07:40 Comment 07/01/18 13:01 Intake & Output 07/18/18 07/19/18 07/19/18 23:59 11:59 23:59 Intake Total 540 / 540 360 / 360 Balance 540 / 540 360 / 360 Weight 60.7 kg Intake: Oral 540 / 540 360 / 360 Other: Voiding Methods Toilet Toilet
[2018-07-19] MEDS: Pantoprazole 20 MG TABCR PO (20:00)
--- NOTE | 2018-07-19 23:38 | NUR.NOTE ---
Nursing Note: 3-11 shift assessment -Pt is independent,alert,aware,pleasant,cooperative ,up in street clothes ,conversing with cadre/staff related to shows on T.V.or general topics of the day . Pt will frequently walk in room or out in [place] with cadre has good steady gait.Pt has good appetite and often will ask for coffee (de-caf) ,also snacks are offered x 2 this shift .Pt denies chest pressure/no discomfort ,sometimes slightly SOB when walking long distance and take a short rest period.Pt had bowel movement and voids in toilet.Skin not assessed this shift .
[2018-07-20] MEDS: Multivitamin w/Minerals TAB 1 TAB PO (08:39)
[2018-07-20] MEDS: Lisinopril 5 MG TAB PO (08:39)
[2018-07-20] MEDS: Thiamine 100 MG TAB PO (08:39)
[2018-07-20] MEDS: Aspirin 81 MG CHEW PO (08:39)
[2018-07-20] MEDS: amLODIPine 5 MG TAB PO (08:39)
[2018-07-20] MEDS: Budesonide/Formoterol 160/4.5 6 GM 60 PUFF INH IH ×2 (09:46→20:11)
[2018-07-20 11:00] VITALS: BP 126/74; PULSE 64; RESP 18; TEMP 36.4; O2SAT 95
--- NOTE | 2018-07-20 11:36 | PDOC.CMPRO ---
- If Service Date Differs Date of service: 07/20/18 Time of Service: 11:36 Care Management Progress Note Mina continues to enjoy walking in the hallways and visiting with staff and on occasion with a neighboring patient. According to ISAAC Alvarez, Mina remains anxious about his recent court hearing for guardianship. When asked by CM if he is having any concerns about anything, Mina denies any. A potential AFC provider will be visiting with Mina on Monday, 07/23, to meet him and assess suitability. CM will continue to offer support to patient and care team regarding discharge planning and disposition.
[2018-07-20] MEDS: Pantoprazole 20 MG TABCR PO (20:10)
[2018-07-21 07:35] VITALS: BP 113/77; PULSE 59; RESP 18; TEMP 36; O2SAT 94
[2018-07-21] MEDS: Lisinopril 5 MG TAB PO (07:51)
[2018-07-21] MEDS: amLODIPine 5 MG TAB PO (07:52)
[2018-07-21] MEDS: Thiamine 100 MG TAB PO (07:52)
[2018-07-21] MEDS: Aspirin 81 MG CHEW PO (07:52)
[2018-07-21] MEDS: Multivitamin w/Minerals TAB 1 TAB PO (07:52)
[2018-07-21] MEDS: Budesonide/Formoterol 160/4.5 6 GM 60 PUFF INH IH ×2 (08:20→21:28)
[2018-07-21] MEDS: Pantoprazole 20 MG TABCR PO (21:26)
[2018-07-22 07:55] VITALS: BP 123/77; PULSE 60; RESP 17; TEMP 36.1; O2SAT 96
[2018-07-22] MEDS: Thiamine 100 MG TAB PO (07:55)
[2018-07-22] MEDS: Multivitamin w/Minerals TAB 1 TAB PO (07:55)
[2018-07-22] MEDS: Lisinopril 5 MG TAB PO (07:55)
[2018-07-22] MEDS: amLODIPine 5 MG TAB PO (07:55)
[2018-07-22] MEDS: Aspirin 81 MG CHEW PO (07:55)
[2018-07-22] MEDS: Budesonide/Formoterol 160/4.5 6 GM 60 PUFF INH IH ×2 (08:46→20:05)
--- NOTE | 2018-07-22 18:41 | NUR.NOTE ---
Nursing Note: Pt pleasant, cooperative today, interactive with staff. No complaints expressed from Pt.
[2018-07-22] MEDS: Pantoprazole 20 MG TABCR PO (21:50)
[2018-07-23 07:40] VITALS: BP 121/75; PULSE 54; RESP 19; TEMP 36.1; O2SAT 96
[2018-07-23] MEDS: amLODIPine 5 MG TAB PO (08:12)
[2018-07-23] MEDS: Thiamine 100 MG TAB PO (08:12)
[2018-07-23] MEDS: Aspirin 81 MG CHEW PO (08:12)
[2018-07-23] MEDS: Lisinopril 5 MG TAB PO (08:13)
[2018-07-23] MEDS: Multivitamin w/Minerals TAB 1 TAB PO (08:13)
[2018-07-23] MEDS: Budesonide/Formoterol 160/4.5 6 GM 60 PUFF INH IH ×2 (08:59→20:01)
--- NOTE | 2018-07-23 14:39 | PDOC.CMPRO ---
- If Service Date Differs Date of service: 07/23/18 Time of Service: 14:39 Care Management Progress Note Francisca, an [facility] home provider, Geneva Mccann from [employer] and CM met with Bill today regarding possible placement. Conversations went well and Francisca and Geneva will be back in touch with CM regarding discussions. CM will continue to offer support to patient and care team regarding discharge planning and disposition.
--- NOTE | 2018-07-23 15:27 | NUR.NOTE ---
Nursing Note: Pt had a good day, met with adult care home and meeting seemed to go well. Pt cooperative and pleasant.
[2018-07-23] MEDS: Pantoprazole 20 MG TABCR PO (21:44)
[2018-07-24 10:15] VITALS: BP 132/71; PULSE 67; RESP 16; TEMP 36.3; O2SAT 95
[2018-07-24] MEDS: Multivitamin w/Minerals TAB 1 TAB PO (10:17)
[2018-07-24] MEDS: Aspirin 81 MG CHEW PO (10:17)
[2018-07-24] MEDS: Thiamine 100 MG TAB PO (10:17)
[2018-07-24] MEDS: amLODIPine 5 MG TAB PO (10:17)
[2018-07-24] MEDS: Lisinopril 5 MG TAB PO (10:17)
[2018-07-24 10:20] VITALS: O2SAT 95
[2018-07-24] MEDS: Budesonide/Formoterol 160/4.5 6 GM 60 PUFF INH IH ×2 (10:22→19:33)
[2018-07-24] MEDS: Pantoprazole 20 MG TABCR PO (21:24)
[2018-07-25] MEDS: Lisinopril 5 MG TAB PO (09:08)
[2018-07-25] MEDS: Multivitamin w/Minerals TAB 1 TAB PO (09:08)
[2018-07-25] MEDS: Aspirin 81 MG CHEW PO (09:09)
[2018-07-25] MEDS: Thiamine 100 MG TAB PO (09:09)
[2018-07-25] MEDS: amLODIPine 5 MG TAB PO (09:09)
[2018-07-25 09:35] VITALS: BP 123/74; PULSE 66; RESP 18; TEMP 37.2; O2SAT 93
[2018-07-25] MEDS: Budesonide/Formoterol 160/4.5 6 GM 60 PUFF INH IH ×2 (09:44→22:11)
[2018-07-25] MEDS: Pantoprazole 20 MG TABCR PO (22:12)
[2018-07-26 07:45] VITALS: BP 101/66; PULSE 84; RESP 19; TEMP 36.1; O2SAT 94
[2018-07-26] MEDS: Lisinopril 5 MG TAB PO (08:13)
[2018-07-26] MEDS: Thiamine 100 MG TAB PO (08:13)
[2018-07-26] MEDS: Aspirin 81 MG CHEW PO (08:13)
[2018-07-26] MEDS: amLODIPine 5 MG TAB PO (08:13)
[2018-07-26] MEDS: Multivitamin w/Minerals TAB 1 TAB PO (08:13)
[2018-07-26 08:45] VITALS: O2SAT 94
[2018-07-26] MEDS: Budesonide/Formoterol 160/4.5 6 GM 60 PUFF INH IH ×2 (08:49→20:29)
[2018-07-26] MEDS: Pantoprazole 20 MG TABCR PO (20:29)
[2018-07-27 07:35] VITALS: O2SAT 93
[2018-07-27 07:40] VITALS: BP 119/76; PULSE 54; RESP 20; TEMP 36.1; O2SAT 95
[2018-07-27] MEDS: amLODIPine 5 MG TAB PO (08:11)
[2018-07-27] MEDS: Thiamine 100 MG TAB PO (08:11)
[2018-07-27] MEDS: Lisinopril 5 MG TAB PO (08:12)
[2018-07-27] MEDS: Aspirin 81 MG CHEW PO (08:12)
[2018-07-27] MEDS: Multivitamin w/Minerals TAB 1 TAB PO (08:12)
[2018-07-27] MEDS: Budesonide/Formoterol 160/4.5 6 GM 60 PUFF INH IH ×2 (08:55→21:16)
[2018-07-27] MEDS: Pantoprazole 20 MG TABCR PO (21:16)
[2018-07-28] MEDS: Multivitamin w/Minerals TAB 1 TAB PO (08:08)
[2018-07-28] MEDS: Thiamine 100 MG TAB PO (08:08)
[2018-07-28] MEDS: amLODIPine 5 MG TAB PO (08:08)
[2018-07-28] MEDS: Aspirin 81 MG CHEW PO (08:08)
[2018-07-28] MEDS: Lisinopril 5 MG TAB PO (08:08)
[2018-07-28 08:50] VITALS: O2SAT 94
[2018-07-28] MEDS: Budesonide/Formoterol 160/4.5 6 GM 60 PUFF INH IH ×2 (08:58→22:10)
[2018-07-28 14:20] VITALS: BP 115/85; PULSE 61; RESP 20; TEMP 36.3; O2SAT 94
[2018-07-28] MEDS: Pantoprazole 20 MG TABCR PO (22:10)
[2018-07-29 07:35] VITALS: BP 124/62; PULSE 61; RESP 19; TEMP 36.2; O2SAT 93
[2018-07-29] MEDS: Lisinopril 5 MG TAB PO (08:26)
[2018-07-29] MEDS: amLODIPine 5 MG TAB PO (08:26)
[2018-07-29] MEDS: Aspirin 81 MG CHEW PO (08:26)
[2018-07-29] MEDS: Multivitamin w/Minerals TAB 1 TAB PO (08:27)
[2018-07-29] MEDS: Thiamine 100 MG TAB PO (08:27)
[2018-07-29 08:55] VITALS: O2SAT 94
[2018-07-29] MEDS: Budesonide/Formoterol 160/4.5 6 GM 60 PUFF INH IH ×2 (08:57→20:28)
--- NOTE | 2018-07-29 15:31 | NUR.NOTE ---
1525: this RN has been in charge of care of patient for the last two days. pt has been pleasant and re-directable. pt has been frustrated a few times about being here but has been accepting of explanation of waiting for a fci to go to. on monday, pt ready to go to [facility] walking with bible in halls. rn explains that pt cannot leave the building today; pt gets agitated, rn offers to sit with pt and read verses, pt states i already know them all. of note, pt has difficulty with eating; pt requires food to be cut up and instructed on how to eat, pt seems to be declining in cognition when it comes to feeding himself. this rn requests that GLUE WHEEL OPERATOR and/or food concession manager make sure pt's food is cut up and ready for him to eat. pt accepting of snacks t/o the day. pt does seem to do well with breakfast but does not eat as well at lunch. pt is encouraged to try to eat more t/o the day. continue to monitor. Nursing Note:
[2018-07-29] MEDS: Pantoprazole 20 MG TABCR PO (21:26)
[2018-07-30 07:30] VITALS: BP 119/75; PULSE 64; RESP 17; TEMP 36.3; O2SAT 93
--- NOTE | 2018-07-30 07:42 | PDOC.CMPRO ---
- If Service Date Differs Date of service: 07/30/18 Time of Service: 07:42 Care Management Progress Note [facility] paperwork emailed to Geneva Lugo. Geneva reports that a potential A[facility] provider will be at [facility] on , 08/02/18 at 1600 to meet with Bill.
--- NOTE | 2018-07-30 07:44 | CMPROGNOTE_ITS ---
- If Service Date Differs Date of service: 07/30/18 Time of Service: 07:42 Care Management Progress Note [facility] paperwork emailed to Geneva Lugo. Geneva reports that a potential AFC provider will be at [facility] on , 08/02/18 at 1600 to meet with Bill.
[2018-07-30] MEDS: amLODIPine 5 MG TAB PO (08:24)
[2018-07-30] MEDS: Lisinopril 5 MG TAB PO (08:24)
[2018-07-30] MEDS: Multivitamin w/Minerals TAB 1 TAB PO (08:24)
[2018-07-30] MEDS: Aspirin 81 MG CHEW PO (08:24)
[2018-07-30] MEDS: Thiamine 100 MG TAB PO (08:25)
[2018-07-30] MEDS: Budesonide/Formoterol 160/4.5 6 GM 60 PUFF INH IH ×2 (08:51→21:23)
[2018-07-30] MEDS: Pantoprazole 20 MG TABCR PO (21:24)
[2018-07-31 07:35] VITALS: BP 121/74; PULSE 57; RESP 18; TEMP 36.1; O2SAT 96
[2018-07-31] MEDS: Aspirin 81 MG CHEW PO (08:33)
[2018-07-31] MEDS: Multivitamin w/Minerals TAB 1 TAB PO (08:33)
[2018-07-31] MEDS: Lisinopril 5 MG TAB PO (08:33)
[2018-07-31] MEDS: amLODIPine 5 MG TAB PO (08:33)
[2018-07-31] MEDS: Thiamine 100 MG TAB PO (08:34)
[2018-07-31] MEDS: Budesonide/Formoterol 160/4.5 6 GM 60 PUFF INH IH ×2 (12:53→20:43)
[2018-07-31] MEDS: Pantoprazole 20 MG TABCR PO (20:42)
[2018-08-01 07:40] VITALS: BP 110/70; PULSE 52; RESP 16; TEMP 36.3; O2SAT 95
[2018-08-01] MEDS: Budesonide/Formoterol 160/4.5 6 GM 60 PUFF INH IH ×2 (08:54→20:34)
[2018-08-01] MEDS: Lisinopril 5 MG TAB PO (10:06)
[2018-08-01] MEDS: Multivitamin w/Minerals TAB 1 TAB PO (10:07)
[2018-08-01] MEDS: Thiamine 100 MG TAB PO (10:07)
[2018-08-01] MEDS: amLODIPine 5 MG TAB PO (10:07)
[2018-08-01] MEDS: Aspirin 81 MG CHEW PO (10:07)
--- NOTE | 2018-08-01 14:49 | PDOC.CMPRO ---
- If Service Date Differs Date of service: 08/01/18 Time of Service: 14:49 Care Management Progress Note Per Geneva Hidalgo, a potential AFC provider will be meeting with Bill at 1600 on 08/02. Choice for Care [facility]: Authorized Agency Referral Form completed and faxed to Noemy Newman on 08/01/18. CM will continue to offer support to patient, guardian and care plan regarding discharge planning and disposition.
[2018-08-01 16:21] VITALS: BP 109/72; PULSE 68; RESP 16; TEMP 36; O2SAT 96
[2018-08-01] MEDS: Pantoprazole 20 MG TABCR PO (21:13)
[2018-08-02 07:20] VITALS: BP 124/81; PULSE 62; RESP 18; TEMP 36.3; O2SAT 95
[2018-08-02 07:57] VITALS: O2SAT 93
[2018-08-02] MEDS: Budesonide/Formoterol 160/4.5 6 GM 60 PUFF INH IH ×2 (07:58→20:11)
[2018-08-02] MEDS: Lisinopril 5 MG TAB PO (09:13)
[2018-08-02] MEDS: Multivitamin w/Minerals TAB 1 TAB PO (09:13)
[2018-08-02] MEDS: Thiamine 100 MG TAB PO (09:13)
[2018-08-02] MEDS: amLODIPine 5 MG TAB PO (09:13)
[2018-08-02] MEDS: Aspirin 81 MG CHEW PO (09:14)
[2018-08-02] MEDS: Pantoprazole 20 MG TABCR PO (20:12)
[2018-08-03 07:45] VITALS: BP 110/70; PULSE 52; RESP 16; TEMP 36.3; O2SAT 95
[2018-08-03] MEDS: amLODIPine 5 MG TAB PO (09:22)
[2018-08-03] MEDS: Lisinopril 5 MG TAB PO (09:23)
[2018-08-03] MEDS: Aspirin 81 MG CHEW PO (09:23)
[2018-08-03] MEDS: Multivitamin w/Minerals TAB 1 TAB PO (09:23)
[2018-08-03] MEDS: Thiamine 100 MG TAB PO (09:23)
[2018-08-03] MEDS: Budesonide/Formoterol 160/4.5 6 GM 60 PUFF INH IH (09:34)
[2018-08-03] MEDS: Acetaminophen 325 MG TAB 650 MG PO (15:07)
[2018-08-03] MEDS: Milk of Magnesia 30 ML CUP PO (15:07)
[2018-08-04 07:40] VITALS: BP 134/71; PULSE 56; RESP 18; TEMP 36.2; O2SAT 94
[2018-08-04] MEDS: Thiamine 100 MG TAB PO (09:39)
[2018-08-04] MEDS: amLODIPine 5 MG TAB PO (09:39)
[2018-08-04] MEDS: Multivitamin w/Minerals TAB 1 TAB PO (09:39)
[2018-08-04] MEDS: Aspirin 81 MG CHEW PO (09:39)
[2018-08-04] MEDS: Lisinopril 5 MG TAB PO (09:39)
[2018-08-04] MEDS: Budesonide/Formoterol 160/4.5 6 GM 60 PUFF INH IH ×2 (10:28→19:37)
[2018-08-04] MEDS: Pantoprazole 20 MG TABCR PO (19:37)
[2018-08-05] MEDS: amLODIPine 5 MG TAB PO (09:05)
[2018-08-05] MEDS: Lisinopril 5 MG TAB PO (09:05)
[2018-08-05] MEDS: Thiamine 100 MG TAB PO (09:05)
[2018-08-05] MEDS: Aspirin 81 MG CHEW PO (09:05)
[2018-08-05] MEDS: Multivitamin w/Minerals TAB 1 TAB PO (09:05)
[2018-08-05 09:12] VITALS: BP 112/70; PULSE 58; RESP 19; TEMP 36.5; O2SAT 96
[2018-08-05] MEDS: Budesonide/Formoterol 160/4.5 6 GM 60 PUFF INH IH ×2 (09:32→20:39)
[2018-08-05] MEDS: Pantoprazole 20 MG TABCR PO (20:39)
[2018-08-06] MEDS: Budesonide/Formoterol 160/4.5 6 GM 60 PUFF INH IH ×2 (08:20→20:46)
[2018-08-06 08:25] VITALS: O2SAT 97
[2018-08-06 08:42] VITALS: BP 132/78; PULSE 59; RESP 18; TEMP 36.2; O2SAT 95
[2018-08-06] MEDS: amLODIPine 5 MG TAB PO (08:44)
[2018-08-06] MEDS: Aspirin 81 MG CHEW PO (08:44)
[2018-08-06] MEDS: Multivitamin w/Minerals TAB 1 TAB PO (08:44)
[2018-08-06] MEDS: Thiamine 100 MG TAB PO (08:44)
[2018-08-06] MEDS: Lisinopril 5 MG TAB PO (08:44)
[2018-08-06] MEDS: Pantoprazole 20 MG TABCR PO (20:46)
[2018-08-07 07:31] VITALS: BP 117/75; PULSE 96; RESP 19; TEMP 36.9; O2SAT 95
[2018-08-07] MEDS: Multivitamin w/Minerals TAB 1 TAB PO (09:07)
[2018-08-07] MEDS: Lisinopril 5 MG TAB PO (09:07)
[2018-08-07] MEDS: Aspirin 81 MG CHEW PO (09:08)
[2018-08-07] MEDS: amLODIPine 5 MG TAB PO (09:08)
[2018-08-07] MEDS: Thiamine 100 MG TAB PO (09:08)
[2018-08-07] MEDS: Budesonide/Formoterol 160/4.5 6 GM 60 PUFF INH IH ×2 (09:15→20:00)
[2018-08-07] MEDS: Pantoprazole 20 MG TABCR PO (21:31)
[2018-08-08 07:35] VITALS: BP 118/72; PULSE 54; RESP 18; TEMP 35.9; O2SAT 98
[2018-08-08] MEDS: Budesonide/Formoterol 160/4.5 6 GM 60 PUFF INH IH ×2 (09:32→20:19)
[2018-08-08] MEDS: Lisinopril 5 MG TAB PO (09:44)
[2018-08-08] MEDS: amLODIPine 5 MG TAB PO (09:45)
[2018-08-08] MEDS: Multivitamin w/Minerals TAB 1 TAB PO (09:45)
[2018-08-08] MEDS: Aspirin 81 MG CHEW PO (09:45)
[2018-08-08] MEDS: Thiamine 100 MG TAB PO (09:45)
[2018-08-08] MEDS: Pantoprazole 20 MG TABCR PO (21:46)
[2018-08-09 07:40] VITALS: BP 112/71; PULSE 58; RESP 18; TEMP 36.1; O2SAT 96
[2018-08-09] MEDS: Budesonide/Formoterol 160/4.5 6 GM 60 PUFF INH IH ×2 (08:13→19:41)
[2018-08-09] MEDS: Lisinopril 5 MG TAB PO (08:38)
[2018-08-09] MEDS: Multivitamin w/Minerals TAB 1 TAB PO (08:39)
[2018-08-09] MEDS: Thiamine 100 MG TAB PO (08:39)
[2018-08-09] MEDS: amLODIPine 5 MG TAB PO (08:39)
[2018-08-09] MEDS: Aspirin 81 MG CHEW PO (08:39)
[2018-08-09] MEDS: Pantoprazole 20 MG TABCR PO (19:41)
[2018-08-10 08:34] VITALS: O2SAT 97
[2018-08-10] MEDS: Budesonide/Formoterol 160/4.5 6 GM 60 PUFF INH IH ×2 (08:34→20:55)
[2018-08-10 09:09] VITALS: BP 122/70; PULSE 60; RESP 18; TEMP 36.6; O2SAT 95
[2018-08-10] MEDS: Multivitamin w/Minerals TAB 1 TAB PO (09:57)
[2018-08-10] MEDS: Aspirin 81 MG CHEW PO (09:57)
[2018-08-10] MEDS: Lisinopril 5 MG TAB PO (09:57)
[2018-08-10] MEDS: Thiamine 100 MG TAB PO (09:58)
[2018-08-10] MEDS: amLODIPine 5 MG TAB PO (09:58)
--- NOTE | 2018-08-10 14:48 | PDOC.CMPRO ---
- If Service Date Differs Date of service: 08/10/18 Time of Service: 14:48 Care Management Progress Note Mina had a very successful visit with a possible AFC home in [place] earlier this week. CM followed up with Genevadeepti Hidalgo regarding placement, and she reports she is working on funds/tiers and awaiting word from provider. Mina has asked every day, multiple times per day, when he is going to the home and what the number is for the provider so that he can phone them. CM will continue to provide support to patient and care team regarding discharge planning and disposition.
[2018-08-10] MEDS: Pantoprazole 20 MG TABCR PO (20:55)
[2018-08-11 08:23] VITALS: BP 109/73; PULSE 48; RESP 20; TEMP 36.3; O2SAT 94
[2018-08-11] MEDS: Budesonide/Formoterol 160/4.5 6 GM 60 PUFF INH IH ×2 (08:43→21:02)
[2018-08-11 08:59] VITALS: O2SAT 93
[2018-08-11 09:30] VITALS: PULSE 68
[2018-08-11] MEDS: Thiamine 100 MG TAB PO (09:31)
[2018-08-11] MEDS: amLODIPine 5 MG TAB PO (09:31)
[2018-08-11] MEDS: Multivitamin w/Minerals TAB 1 TAB PO (09:31)
[2018-08-11] MEDS: Lisinopril 5 MG TAB PO (09:32)
[2018-08-11] MEDS: Aspirin 81 MG CHEW PO (09:32)
[2018-08-11] MEDS: Pantoprazole 20 MG TABCR PO (21:02)
[2018-08-12] MEDS: Lisinopril 5 MG TAB PO (09:40)
[2018-08-12] MEDS: Multivitamin w/Minerals TAB 1 TAB PO (09:40)
[2018-08-12] MEDS: Thiamine 100 MG TAB PO (09:40)
[2018-08-12] MEDS: amLODIPine 5 MG TAB PO (09:40)
[2018-08-12] MEDS: Aspirin 81 MG CHEW PO (09:40)
[2018-08-12] MEDS: Budesonide/Formoterol 160/4.5 6 GM 60 PUFF INH IH ×2 (09:46→20:25)
[2018-08-12 09:47] VITALS: BP 126/72; PULSE 66; RESP 20; TEMP 36.7; O2SAT 95
[2018-08-12] MEDS: Pantoprazole 20 MG TABCR PO (22:23)
[2018-08-13 07:25] VITALS: BP 123/80; PULSE 62; RESP 20; TEMP 36.3; O2SAT 93
[2018-08-13] MEDS: Aspirin 81 MG CHEW PO (07:47)
[2018-08-13] MEDS: Thiamine 100 MG TAB PO (07:47)
[2018-08-13] MEDS: amLODIPine 5 MG TAB PO (07:47)
[2018-08-13] MEDS: Multivitamin w/Minerals TAB 1 TAB PO (07:48)
[2018-08-13] MEDS: Lisinopril 5 MG TAB PO (07:48)
[2018-08-13 08:38] VITALS: O2SAT 91
[2018-08-13] MEDS: Budesonide/Formoterol 160/4.5 6 GM 60 PUFF INH IH ×2 (09:36→20:41)
[2018-08-13] MEDS: Pantoprazole 20 MG TABCR PO (20:40)
[2018-08-14 07:20] VITALS: BP 111/69; PULSE 54; RESP 17; TEMP 36.2; O2SAT 97
[2018-08-14] MEDS: Budesonide/Formoterol 160/4.5 6 GM 60 PUFF INH IH ×2 (09:22→19:39)
[2018-08-14] MEDS: Thiamine 100 MG TAB PO (09:31)
[2018-08-14] MEDS: Lisinopril 5 MG TAB PO (09:31)
[2018-08-14] MEDS: Aspirin 81 MG CHEW PO (09:31)
[2018-08-14] MEDS: Multivitamin w/Minerals TAB 1 TAB PO (09:31)
[2018-08-14] MEDS: amLODIPine 5 MG TAB PO (09:31)
[2018-08-14] MEDS: Pantoprazole 20 MG TABCR PO (21:15)
[2018-08-15 08:25] VITALS: BP 129/78; PULSE 60; RESP 16; TEMP 36.8; O2SAT 97
[2018-08-15] MEDS: Budesonide/Formoterol 160/4.5 6 GM 60 PUFF INH IH ×2 (09:28→20:13)
[2018-08-15] MEDS: amLODIPine 5 MG TAB PO (09:28)
[2018-08-15] MEDS: Multivitamin w/Minerals TAB 1 TAB PO (09:29)
[2018-08-15] MEDS: Aspirin 81 MG CHEW PO (09:29)
[2018-08-15] MEDS: Lisinopril 5 MG TAB PO (09:29)
[2018-08-15] MEDS: Thiamine 100 MG TAB PO (09:29)
[2018-08-15] MEDS: Pantoprazole 20 MG TABCR PO (21:49)
[2018-08-16 07:40] VITALS: BP 117/74; PULSE 53; RESP 18; TEMP 36.1; O2SAT 96
[2018-08-16] MEDS: Thiamine 100 MG TAB PO (08:59)
[2018-08-16] MEDS: Lisinopril 5 MG TAB PO (08:59)
[2018-08-16] MEDS: Aspirin 81 MG CHEW PO (08:59)
[2018-08-16] MEDS: amLODIPine 5 MG TAB PO (08:59)
[2018-08-16] MEDS: Multivitamin w/Minerals TAB 1 TAB PO (09:00)
[2018-08-16 09:30] VITALS: O2SAT 96
[2018-08-16] MEDS: Budesonide/Formoterol 160/4.5 6 GM 60 PUFF INH IH ×2 (09:30→20:37)
--- NOTE | 2018-08-16 14:14 | PDOC.CMACT ---
- If Service Date Differs Date of service: 08/16/18 Time of Service: 14:14 Care Management Activity Note Mina has been ambulating independently in the hallways and continues to visit the CM office multiple times per day. He has become agitated at times due to the uncertainty of his situation and continuously asks this CM and others when he is going to move to [place]. Mina's memory deficits seem to be increasing over the past few months. CM continues to be in regular contact with Kya mcdonald and Geneva Mejia from [facility] regarding placement for Mina. CM will continue to provide support to Mina and his care team in regards to discharge planning and disposition.
--- NOTE | 2018-08-16 14:37 | CMACTNOTE_ITS ---
- If Service Date Differs Date of service: 08/16/18 Time of Service: 14:14 Care Management Activity Note Mian has been ambulating independently in the hallways and continues to visit the CM office multiple times per day. He has become agitated at times due to the uncertainty of his situation and continuously asks this CM and others when he is going to move to [place]. Mina's memory deficits seem to be increasing over the past few months. CM continues to be in regular contact with Kya mcdonald and Geneva Mejia from [facility] regarding placement for Mina. CM will continue to provide support to Mina and his care team in regards to discharge planning and disposition.
[2018-08-16] MEDS: Pantoprazole 20 MG TABCR PO (20:37)
[2018-08-17 08:50] VITALS: BP 112/76; PULSE 62; RESP 20; TEMP 36.2; O2SAT 95
[2018-08-17] MEDS: Budesonide/Formoterol 160/4.5 6 GM 60 PUFF INH IH ×2 (08:50→22:34)
[2018-08-17] MEDS: Multivitamin w/Minerals TAB 1 TAB PO (08:55)
[2018-08-17] MEDS: Lisinopril 5 MG TAB PO (08:56)
[2018-08-17] MEDS: Aspirin 81 MG CHEW PO (08:56)
[2018-08-17] MEDS: Thiamine 100 MG TAB PO (08:56)
[2018-08-17] MEDS: amLODIPine 5 MG TAB PO (08:56)
[2018-08-17] MEDS: Pantoprazole 20 MG TABCR PO (22:34)
[2018-08-18] MEDS: amLODIPine 5 MG TAB PO (08:55)
[2018-08-18] MEDS: Lisinopril 5 MG TAB PO (08:55)
[2018-08-18] MEDS: Thiamine 100 MG TAB PO (08:55)
[2018-08-18] MEDS: Aspirin 81 MG CHEW PO (08:55)
[2018-08-18] MEDS: Multivitamin w/Minerals TAB 1 TAB PO (08:55)
[2018-08-18 13:48] VITALS: BP 100/65; PULSE 60; RESP 18; TEMP 36.5; O2SAT 98
[2018-08-18] MEDS: Budesonide/Formoterol 160/4.5 6 GM 60 PUFF INH IH (20:12)
[2018-08-18] MEDS: Pantoprazole 20 MG TABCR PO (21:08)
[2018-08-19 07:19] VITALS: BP 132/85; PULSE 58; RESP 18; TEMP 36.5; O2SAT 92
[2018-08-19] MEDS: amLODIPine 5 MG TAB PO (07:37)
[2018-08-19] MEDS: Aspirin 81 MG CHEW PO (07:37)
[2018-08-19] MEDS: Lisinopril 5 MG TAB PO (07:37)
[2018-08-19] MEDS: Thiamine 100 MG TAB PO (07:37)
[2018-08-19] MEDS: Multivitamin w/Minerals TAB 1 TAB PO (07:37)
[2018-08-19] MEDS: Budesonide/Formoterol 160/4.5 6 GM 60 PUFF INH IH ×2 (09:51→21:30)
--- NOTE | 2018-08-19 10:25 | NUR.NOTE ---
Nursing Note: As of start of day shift, Pt has no cadre. Nursing purchasing and claims supervisor is aware.
[2018-08-19] MEDS: Pantoprazole 20 MG TABCR PO (21:30)
[2018-08-20] MEDS: Thiamine 100 MG TAB PO (07:40)
[2018-08-20] MEDS: Aspirin 81 MG CHEW PO (07:40)
[2018-08-20] MEDS: Multivitamin w/Minerals TAB 1 TAB PO (07:40)
[2018-08-20] MEDS: Lisinopril 5 MG TAB PO (07:40)
[2018-08-20] MEDS: amLODIPine 5 MG TAB PO (07:40)
[2018-08-20 07:50] VITALS: O2SAT 94
[2018-08-20] MEDS: Budesonide/Formoterol 160/4.5 6 GM 60 PUFF INH IH ×2 (07:51→23:07)
--- NOTE | 2018-08-20 15:04 | PDOC.CMPRO ---
- If Service Date Differs Date of service: 08/20/18 Time of Service: 15:04 Care Management Progress Note Bill continues to await an [facility] home placement. Notice of hearing received by CM regarding Hearing for motion for license to sell personal estate. Per notice, personal appearance not required. CM left for eGneva Hidalgo today regarding status update. CM will continue to offer support to patient and care team regarding discharge planning and disposition.
--- NOTE | 2018-08-20 15:07 | CMPROGNOTE_ITS ---
- If Service Date Differs Date of service: 08/20/18 Time of Service: 15:04 Care Management Progress Note Bill continues to await an [facility] home placement. Notice of hearing received by CM regarding Hearing for motion for license to sell personal estate. Per notice, personal appearance not required. CM left for Geneva Hidalgo today regarding status update. CM will continue to offer support to patient and care team regarding discharge planning and disposition.
[2018-08-20 15:50] VITALS: BP 107/70; PULSE 61; RESP 18; TEMP 37.3; O2SAT 97
--- NOTE | 2018-08-20 17:29 | W.PM.PROGNOT ---
Assessment and Plan (1) Memory impairment: Current visit: No Status: Acute Advanced dementia. Care management is working on placement. He now has a court appointed guardian. (2) Hypertension: Current visit: Yes Status: Acute Blood pressure stable. Continue current regimen of CCB, JEFF-I therapy. (3) COPD (chronic obstructive pulmonary disease): Current visit: Yes Status: Chronic Stable. Continue IGC/LABA, Spiriva. (4) Discharge planning issues: Current visit: No Status: Acute FULL CODE. Subjective Interval history since last seen: 78-year-old male patient with a prior medical history of tobacco use, COPD, Dyslipidemia, and HTN admitted under swing bed status due to his severe advanced dementia and inability to care for himself at home. Case Management has been working unsuccessfully on placement. He now has a court appointed guardian. He remains medically stable. The patient spends the majority of his days walking around the Med Surg Unit, He continues to ambulate around the unit frequently. Vitals remains stable and his physical exam is unchanged. There were no overnight events. Exam Narrative Exam Narrative: General: Patient appears comfortable, Awake and alert, NAD Neck: Supple CV: Regular, nontachycardic, S1S2, No rubs, murmurs, or gallops. Pulmonary: Prolonged expiration phase, Clear to auscultation bilaterally, no crackles, wheezing, or rhonchi Abdomen: + Bowel Sounds, soft, nontender, nondistended Vascular: No lower extremity edema Neurologic: CN II-XII appear grossly intact. No focal deficits. Psych: Normal mood and affect. Objective Objective Clinical Data: Vital Signs Temperature 37.3 C 08/20/18 15:50 Temperature Source Tympanic 08/20/18 15:50 Pulse 61 08/20/18 15:50 Pulse Rhythm Regular 08/20/18 07:40 Respiratory Rate 18 08/20/18 15:50 Respiratory Effort Non-Labored 08/20/18 07:40 Respiratory Depth Normal 08/20/18 07:40 Respiratory Pattern Normal 08/20/18 07:40 Blood Pressure 107/70 08/20/18 15:50 Pulse Oximetry 97 08/20/18 15:50 Oxygen Delivery Method Room Air 08/20/18 15:50 Oxygen Flow Rate 0 08/20/18 15:50 Pain Level 0 08/20/18 15:50 Comment 08/11/18 08:23 Intake & Output 08/19/18 08/20/18 08/20/18 23:59 11:59 23:59 Intake Total 730 / 730 240 / 240 490 / 490 Balance 730 / 730 240 / 240 490 / 490 Weight 62.1 kg Intake: Oral 730 / 730 240 / 240 490 / 490 Other: Comment Pt voids ind. VOIDS IN TOILET AND FLUSHES Voiding Methods Toilet Toilet
[2018-08-20] MEDS: Pantoprazole 20 MG TABCR PO (23:07)
[2018-08-21] MEDS: Budesonide/Formoterol 160/4.5 6 GM 60 PUFF INH IH ×2 (09:42→20:00)
[2018-08-21] MEDS: amLODIPine 5 MG TAB PO (10:01)
[2018-08-21] MEDS: Lisinopril 5 MG TAB PO (10:01)
[2018-08-21] MEDS: Aspirin 81 MG CHEW PO (10:01)
[2018-08-21] MEDS: Multivitamin w/Minerals TAB 1 TAB PO (10:01)
[2018-08-21] MEDS: Thiamine 100 MG TAB PO (10:01)
[2018-08-21 10:03] VITALS: BP 115/77; PULSE 76; RESP 18
[2018-08-21] MEDS: Pantoprazole 20 MG TABCR PO (21:34)
[2018-08-22 07:40] VITALS: BP 134/86; PULSE 57; RESP 17; TEMP 36.2; O2SAT 96
[2018-08-22 09:30] VITALS: O2SAT 95
[2018-08-22] MEDS: amLODIPine 5 MG TAB PO (10:39)
[2018-08-22] MEDS: Aspirin 81 MG CHEW PO (10:39)
[2018-08-22] MEDS: Thiamine 100 MG TAB PO (10:39)
[2018-08-22] MEDS: Lisinopril 5 MG TAB PO (10:39)
[2018-08-22] MEDS: Multivitamin w/Minerals TAB 1 TAB PO (10:39)
[2018-08-22] MEDS: Budesonide/Formoterol 160/4.5 6 GM 60 PUFF INH IH (19:55)
[2018-08-22] MEDS: Pantoprazole 20 MG TABCR PO (21:47)
[2018-08-23 07:40] VITALS: BP 108/71; PULSE 84; RESP 17; TEMP 36.2; O2SAT 93
[2018-08-23] MEDS: Multivitamin w/Minerals TAB 1 TAB PO (08:45)
[2018-08-23] MEDS: amLODIPine 5 MG TAB PO (08:45)
[2018-08-23] MEDS: Lisinopril 5 MG TAB PO (08:45)
[2018-08-23] MEDS: Aspirin 81 MG CHEW PO (08:45)
[2018-08-23] MEDS: Thiamine 100 MG TAB PO (08:45)
[2018-08-23] MEDS: Budesonide/Formoterol 160/4.5 6 GM 60 PUFF INH IH ×2 (11:19→19:44)
[2018-08-23 20:03] VITALS: BP 104/71; PULSE 63; RESP 16; TEMP 36.6; O2SAT 95
[2018-08-23] MEDS: Pantoprazole 20 MG TABCR PO (21:04)
[2018-08-24 07:45] VITALS: BP 116/76; PULSE 65; RESP 18; TEMP 36.1; O2SAT 98
[2018-08-24] MEDS: Aspirin 81 MG CHEW PO (07:52)
[2018-08-24] MEDS: Multivitamin w/Minerals TAB 1 TAB PO (07:52)
[2018-08-24] MEDS: amLODIPine 5 MG TAB PO (07:52)
[2018-08-24] MEDS: Lisinopril 5 MG TAB PO (07:52)
[2018-08-24] MEDS: Thiamine 100 MG TAB PO (07:52)
[2018-08-24 09:45] VITALS: O2SAT 94
[2018-08-24] MEDS: Budesonide/Formoterol 160/4.5 6 GM 60 PUFF INH IH ×2 (09:50→20:23)
[2018-08-24] MEDS: Pantoprazole 20 MG TABCR PO (21:27)
[2018-08-24 22:57] VITALS: BP 119/69; PULSE 68; RESP 18; TEMP 36.7; O2SAT 95
[2018-08-25] MEDS: Lisinopril 5 MG TAB PO (09:26)
[2018-08-25] MEDS: Aspirin 81 MG CHEW PO (09:27)
[2018-08-25] MEDS: amLODIPine 5 MG TAB PO (09:27)
[2018-08-25] MEDS: Thiamine 100 MG TAB PO (09:27)
[2018-08-25] MEDS: Multivitamin w/Minerals TAB 1 TAB PO (09:27)
[2018-08-25 09:28] VITALS: BP 145/67; PULSE 62; RESP 16; TEMP 36; O2SAT 96
[2018-08-25] MEDS: Budesonide/Formoterol 160/4.5 6 GM 60 PUFF INH IH ×2 (09:41→20:44)
[2018-08-25] MEDS: Pantoprazole 20 MG TABCR PO (22:22)
[2018-08-26] MEDS: Lisinopril 5 MG TAB PO (07:51)
[2018-08-26] MEDS: Thiamine 100 MG TAB PO (07:51)
[2018-08-26] MEDS: Multivitamin w/Minerals TAB 1 TAB PO (07:51)
[2018-08-26] MEDS: Aspirin 81 MG CHEW PO (07:51)
[2018-08-26] MEDS: amLODIPine 5 MG TAB PO (07:51)
[2018-08-26 08:02] VITALS: BP 142/78; PULSE 56; RESP 16; TEMP 35.2; O2SAT 97
[2018-08-26] MEDS: Budesonide/Formoterol 160/4.5 6 GM 60 PUFF INH IH ×2 (11:49→21:01)
[2018-08-26] MEDS: Pantoprazole 20 MG TABCR PO (21:02)
[2018-08-27] MEDS: Aspirin 81 MG CHEW PO (09:12)
[2018-08-27] MEDS: Multivitamin w/Minerals TAB 1 TAB PO (09:12)
[2018-08-27] MEDS: amLODIPine 5 MG TAB PO (09:12)
[2018-08-27] MEDS: Lisinopril 5 MG TAB PO (09:12)
[2018-08-27] MEDS: Thiamine 100 MG TAB PO (09:12)
[2018-08-27] MEDS: Budesonide/Formoterol 160/4.5 6 GM 60 PUFF INH IH ×2 (09:20→21:19)
[2018-08-27 11:00] VITALS: BP 115/74; PULSE 62; RESP 20; TEMP 36.4; O2SAT 97
[2018-08-27] MEDS: Pantoprazole 20 MG TABCR PO (21:19)
[2018-08-28 07:45] VITALS: O2SAT 98
[2018-08-28] MEDS: Budesonide/Formoterol 160/4.5 6 GM 60 PUFF INH IH ×2 (07:49→21:45)
[2018-08-28] MEDS: amLODIPine 5 MG TAB PO (08:59)
[2018-08-28] MEDS: Lisinopril 5 MG TAB PO (08:59)
[2018-08-28] MEDS: Multivitamin w/Minerals TAB 1 TAB PO (08:59)
[2018-08-28] MEDS: Aspirin 81 MG CHEW PO (08:59)
[2018-08-28] MEDS: Thiamine 100 MG TAB PO (08:59)
[2018-08-28 09:07] VITALS: BP 102/70; PULSE 80; RESP 18; TEMP 36.1; O2SAT 94
[2018-08-28] MEDS: Pantoprazole 20 MG TABCR PO (21:45)
--- NOTE | 2018-08-28 23:01 | NUR.NOTE ---
2114 Hayes found coming out of care managers office. He said he was just seeing if the door was locked, when confronted regarding watching him come out he got very agitated. Unknown length of time he was in the office. Office door locked after incident. Request made for patient observer without success.
--- NOTE | 2018-08-28 23:03 | NUR.NOTE ---
Hayes found coming out of another patients room holding a handful of that patients belongings. Items returned to the rightful process equipment operator. Patient observer requested without success.
[2018-08-29 09:46] VITALS: BP 126/74; PULSE 64; RESP 19; TEMP 36.2; O2SAT 98
[2018-08-29] MEDS: Lisinopril 5 MG TAB PO (09:48)
[2018-08-29] MEDS: Multivitamin w/Minerals TAB 1 TAB PO (09:48)
[2018-08-29] MEDS: Aspirin 81 MG CHEW PO (09:49)
[2018-08-29] MEDS: Thiamine 100 MG TAB PO (09:49)
[2018-08-29] MEDS: amLODIPine 5 MG TAB PO (09:49)
[2018-08-29] MEDS: Budesonide/Formoterol 160/4.5 6 GM 60 PUFF INH IH ×2 (13:36→20:25)
[2018-08-29 17:03] VITALS: BP 122/71; PULSE 61; RESP 21; TEMP 37.2; O2SAT 99
[2018-08-29] MEDS: Pantoprazole 20 MG TABCR PO (20:25)
[2018-08-30 07:33] VITALS: BP 131/78; PULSE 57; RESP 18; TEMP 36; O2SAT 96
[2018-08-30] MEDS: Lisinopril 5 MG TAB PO (08:50)
[2018-08-30] MEDS: Multivitamin w/Minerals TAB 1 TAB PO (08:50)
[2018-08-30] MEDS: Thiamine 100 MG TAB PO (08:50)
[2018-08-30] MEDS: amLODIPine 5 MG TAB PO (08:51)
[2018-08-30] MEDS: Aspirin 81 MG CHEW PO (08:51)
[2018-08-30] MEDS: Budesonide/Formoterol 160/4.5 6 GM 60 PUFF INH IH ×2 (10:16→20:52)
--- NOTE | 2018-08-30 12:05 | PDOC.CMPRO ---
- If Service Date Differs Date of service: 08/30/18 Time of Service: 12:05 Care Management Progress Note Mina continues to await an [facility] home placement. CM met with Geneva Mccann of [facility] yesterday who has reported that she met with home providers and Mina's guardian, Kya, yesterday and anticipate he will move to his new home on Monday, 09/10. CM will meet with Stacy at [facility] on Monday, 09/07 for discharge planning. Mina continues on SB status at this time and enjoys walking the halls and visiting with staff. Mina reported that he lost his wallet several days ago but has since found it. CM will continue to offer support to patient and care team regarding discharge planning and disposition.
--- NOTE | 2018-08-30 12:09 | CMPROGNOTE_ITS ---
- If Service Date Differs Date of service: 08/30/18 Time of Service: 12:05 Care Management Progress Note Mina continues to await an [facility] home placement. CM met with Geneva Mccann of [facility] yesterday who has reported that she met with home providers and Mina's guardian , Kya, yesterday and anticipate he will move to his new home on Monday, 09/10. CM will meet with Stacy at [facility] on Monday, 09/07 for discharge planning. Mina continues on SB status at this time and enjoys walking the halls and visiting with staff. Mina reported that he lost his wallet several days ago but has since found it. CM will continue to offer support to patient and care team regarding discharge planning and disposition.
[2018-08-30] MEDS: Pantoprazole 20 MG TABCR PO (20:52)
[2018-08-31 07:20] VITALS: BP 133/91; PULSE 60; RESP 18; TEMP 37.1; O2SAT 97
[2018-08-31] MEDS: Budesonide/Formoterol 160/4.5 6 GM 60 PUFF INH IH ×2 (09:24→20:43)
[2018-08-31 09:25] VITALS: O2SAT 96
[2018-08-31] MEDS: Aspirin 81 MG CHEW PO (09:59)
[2018-08-31] MEDS: Lisinopril 5 MG TAB PO (09:59)
[2018-08-31] MEDS: amLODIPine 5 MG TAB PO (10:00)
[2018-08-31] MEDS: Thiamine 100 MG TAB PO (10:00)
[2018-08-31] MEDS: Multivitamin w/Minerals TAB 1 TAB PO (10:00)
[2018-08-31] MEDS: Pantoprazole 20 MG TABCR PO (20:43)
[2018-09-01] MEDS: Aspirin 81 MG CHEW PO (08:53)
[2018-09-01] MEDS: Multivitamin w/Minerals TAB 1 TAB PO (08:53)
[2018-09-01] MEDS: amLODIPine 5 MG TAB PO (08:53)
[2018-09-01] MEDS: Lisinopril 5 MG TAB PO (08:53)
[2018-09-01] MEDS: Thiamine 100 MG TAB PO (08:53)
[2018-09-01 08:54] VITALS: BP 146/86; PULSE 59; RESP 18; TEMP 37.1; O2SAT 95
[2018-09-01] MEDS: Budesonide/Formoterol 160/4.5 6 GM 60 PUFF INH IH ×2 (09:11→20:47)
[2018-09-01 12:00] VITALS: BP 115/71; PULSE 67; RESP 22; TEMP 36.3; O2SAT 95
[2018-09-01] MEDS: Pantoprazole 20 MG TABCR PO (20:47)
[2018-09-02 07:35] VITALS: BP 123/80; PULSE 54; RESP 18; TEMP 36; O2SAT 95
[2018-09-02] MEDS: Thiamine 100 MG TAB PO (08:56)
[2018-09-02] MEDS: Lisinopril 5 MG TAB PO (08:56)
[2018-09-02] MEDS: Multivitamin w/Minerals TAB 1 TAB PO (08:56)
[2018-09-02] MEDS: amLODIPine 5 MG TAB PO (08:57)
[2018-09-02] MEDS: Aspirin 81 MG CHEW PO (08:57)
[2018-09-02] MEDS: Budesonide/Formoterol 160/4.5 6 GM 60 PUFF INH IH ×2 (09:14→20:00)
[2018-09-02] MEDS: Pantoprazole 20 MG TABCR PO (21:59)
[2018-09-03 07:35] VITALS: BP 126/74; PULSE 53; RESP 20; TEMP 36.1; O2SAT 96
[2018-09-03] MEDS: Thiamine 100 MG TAB PO (08:02)
[2018-09-03] MEDS: Aspirin 81 MG CHEW PO (08:02)
[2018-09-03] MEDS: Lisinopril 5 MG TAB PO (08:02)
[2018-09-03] MEDS: Multivitamin w/Minerals TAB 1 TAB PO (08:02)
[2018-09-03] MEDS: amLODIPine 5 MG TAB PO (08:02)
[2018-09-03] MEDS: Budesonide/Formoterol 160/4.5 6 GM 60 PUFF INH IH ×2 (09:59→21:06)
[2018-09-03] MEDS: Pantoprazole 20 MG TABCR PO (21:06)
[2018-09-04 07:30] VITALS: BP 120/67; PULSE 60; RESP 17; TEMP 36.4; O2SAT 95
[2018-09-04] MEDS: Thiamine 100 MG TAB PO (08:15)
[2018-09-04] MEDS: Aspirin 81 MG CHEW PO (08:15)
[2018-09-04] MEDS: Multivitamin w/Minerals TAB 1 TAB PO (08:15)
[2018-09-04] MEDS: Lisinopril 5 MG TAB PO (08:15)
[2018-09-04] MEDS: amLODIPine 5 MG TAB PO (08:15)
[2018-09-04 10:00] VITALS: O2SAT 94
[2018-09-04] MEDS: Budesonide/Formoterol 160/4.5 6 GM 60 PUFF INH IH ×2 (10:06→20:08)
[2018-09-04] MEDS: Pantoprazole 20 MG TABCR PO (20:08)
[2018-09-05] MEDS: Lisinopril 5 MG TAB PO (08:40)
[2018-09-05] MEDS: amLODIPine 5 MG TAB PO (08:40)
[2018-09-05] MEDS: Aspirin 81 MG CHEW PO (08:40)
[2018-09-05] MEDS: Multivitamin w/Minerals TAB 1 TAB PO (08:40)
[2018-09-05] MEDS: Thiamine 100 MG TAB PO (08:40)
[2018-09-05] MEDS: Budesonide/Formoterol 160/4.5 6 GM 60 PUFF INH IH ×2 (09:12→20:01)
[2018-09-05 18:15] VITALS: BP 122/74; PULSE 61; RESP 20; TEMP 36.3; O2SAT 94
[2018-09-05] MEDS: Pantoprazole 20 MG TABCR PO (20:01)
[2018-09-06 07:38] VITALS: BP 120/76; PULSE 61; RESP 18; TEMP 36.7; O2SAT 95
[2018-09-06] MEDS: Thiamine 100 MG TAB PO (09:13)
[2018-09-06] MEDS: Lisinopril 5 MG TAB PO (09:13)
[2018-09-06] MEDS: amLODIPine 5 MG TAB PO (09:13)
[2018-09-06] MEDS: Multivitamin w/Minerals TAB 1 TAB PO (09:13)
[2018-09-06] MEDS: Aspirin 81 MG CHEW PO (09:13)
[2018-09-06] MEDS: Budesonide/Formoterol 160/4.5 6 GM 60 PUFF INH IH ×2 (09:46→19:54)
--- NOTE | 2018-09-06 16:42 | PDOC.CMACT ---
Care Management Activity Note Mina remains very active; walking the hallways and talking with staff. He is engaged in discharge planning conversations constantly; and is excited at the prospect of returning to the community. He watches some TV, enjoys looking at books, visiting with others and drinking coffee.
[2018-09-06] MEDS: Pantoprazole 20 MG TABCR PO (22:23)
[2018-09-07 08:19] VITALS: BP 115/68; PULSE 58; RESP 16; TEMP 36.6; O2SAT 96
[2018-09-07] MEDS: Aspirin 81 MG CHEW PO (08:20)
[2018-09-07] MEDS: Thiamine 100 MG TAB PO (08:20)
[2018-09-07] MEDS: Lisinopril 5 MG TAB PO (08:20)
[2018-09-07] MEDS: Multivitamin w/Minerals TAB 1 TAB PO (08:20)
[2018-09-07] MEDS: amLODIPine 5 MG TAB PO (08:21)
[2018-09-07] MEDS: Budesonide/Formoterol 160/4.5 6 GM 60 PUFF INH IH ×2 (09:38→21:08)
--- NOTE | 2018-09-07 13:20 | PDOC.CMPRO ---
- If Service Date Differs Date of service: 09/07/18 Time of Service: 13:20 Care Management Progress Note CM met with staff from [facility] (Carlos A, TIERRA), Kya, Mina's guardian, and Guera ([facility] provider via speaker phone) regarding Mina's discharge on 09/10/2018. Confirmed Pharmacy as [facility] in [facility]. Kya will pickle processor Mina's medications on Monday. Mina will need a new PCP; Kya will coordinate. Kya will pick Bill up on Monday around 12/12:30pm. Mina is aware of the plan for discharge and reports that he is looking forward to going. TIERRA will continue to offer support to patient and care team regarding discharge planning and disposition.
--- NOTE | 2018-09-07 13:23 | CMPROGNOTE_ITS ---
- If Service Date Differs Date of service: 09/07/18 Time of Service: 13:20 Care Management Progress Note CM met with staff from [facility] (Carlos A, TIERRA), Kya, Mina's guardian, and Guera ([facility] provider via speaker phone) regarding Mina's discharge on 2017. Confirmed Pharmacy as [facility] in [facility]. Kya will machine operator hop picker Mina's medications on Monday. Mina will need a new PCP; Kya will coordinate. Kya will pick Bill up on Monday around 12/12:30pm. Mina is aware of the plan for discharge and reports that he is looking forward to going. TIERAR will continue to offer support to patient and care team regarding discharge planning and disposition.
--- NOTE | 2018-09-07 13:37 | NUTRITION ---
Mina is eating consistently well. His weight is down 3% in the past month which is unplanned, however it is not a significant loss. His BMI is still 20 which is WNL. Will continue to monitor PO and weight and encourage nutrient dense PO.
[2018-09-07 17:00] VITALS: TEMP 36.6
[2018-09-07] MEDS: Pantoprazole 20 MG TABCR PO (21:08)
--- NOTE | 2018-09-08 06:06 | NUR.NOTE ---
Nursing Note: 7P-7A shift: Patient is on good spirit. Slept well, got out of bed once for voiding and coffee then back to bed without redirections. Verbalized of leaving us tomorrow, corrected for the dates and he stated are you going to miss me? and with smiling face. No special needs specified at this time.
[2018-09-08] MEDS: amLODIPine 5 MG TAB PO (08:27)
[2018-09-08] MEDS: Thiamine 100 MG TAB PO (08:27)
[2018-09-08] MEDS: Lisinopril 5 MG TAB PO (08:27)
[2018-09-08] MEDS: Aspirin 81 MG CHEW PO (08:27)
[2018-09-08] MEDS: Multivitamin w/Minerals TAB 1 TAB PO (08:27)
[2018-09-08 09:40] VITALS: O2SAT 95
[2018-09-08] MEDS: Budesonide/Formoterol 160/4.5 6 GM 60 PUFF INH IH ×2 (09:41→20:16)
[2018-09-08 11:43] VITALS: BP 110/67; PULSE 64; RESP 15; TEMP 36.7; O2SAT 96
[2018-09-08] MEDS: Pantoprazole 20 MG TABCR PO (21:10)
--- NOTE | 2018-09-09 05:39 | NUR.NOTE ---
Nursing Note: Pt has been resting quietly this shift, resting in bed with eyes closed, respirations are even and unlabored. He does ambulate independently and voids independently in the bathroom.
[2018-09-09] MEDS: Thiamine 100 MG TAB PO (09:23)
[2018-09-09] MEDS: Multivitamin w/Minerals TAB 1 TAB PO (09:23)
[2018-09-09] MEDS: Lisinopril 5 MG TAB PO (09:23)
[2018-09-09] MEDS: Aspirin 81 MG CHEW PO (09:23)
[2018-09-09] MEDS: amLODIPine 5 MG TAB PO (09:23)
[2018-09-09 09:55] VITALS: O2SAT 96
[2018-09-09] MEDS: Budesonide/Formoterol 160/4.5 6 GM 60 PUFF INH IH ×2 (09:59→19:34)
[2018-09-09] MEDS: Furosemide 20 MG TAB PO (11:02)
[2018-09-09 11:14] VITALS: BP 127/78; PULSE 80; RESP 16; TEMP 36.8; O2SAT 97
[2018-09-09] MEDS: Pantoprazole 20 MG TABCR PO (21:19)
[2018-09-10] MEDS: amLODIPine 5 MG TAB PO (08:45)
[2018-09-10] MEDS: Thiamine 100 MG TAB PO (08:46)
[2018-09-10] MEDS: Multivitamin w/Minerals TAB 1 TAB PO (08:46)
[2018-09-10] MEDS: Lisinopril 5 MG TAB PO (08:46)
[2018-09-10] MEDS: Aspirin 81 MG CHEW PO (08:47)
[2018-09-10] MEDS: Budesonide/Formoterol 160/4.5 6 GM 60 PUFF INH IH (09:32)
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
--- NOTE | 2018-09-10 12:01 | PDOC.CMDIS ---
- If Service Date Differs Date of service: 09/10/18 Time of Service: 12:01 LACE Index Scoring Tool - Questions: Length of Stay (in days): 14 or more Acuity (Admit via E.D.?): Yes Comorbidities: Chronic Pulmonary Disease E.D. Visits: 3 - Answers: Total Score: 15 Risk of Readmission: High Risk Care Management Discharge Reason for Hospitalization: Dementia, Inability to care for self. Discharge Plan: Mina will discharge to an [facility] home in [place] when placement arrangements are finalized. Anticipate Mina will discharge with no services and follow up with his PCP. Mina will transport via private vehicle with his guardian, Kya. Patient/Family Education Needs: Discharge education, any limitations, and follow up plan of care. Ask Me Three discussion. Services Needed at Discharge: Day Care ([facility], [facility]. )
--- NOTE | 2018-09-10 12:04 | CMDISCH_ITS ---
- If Service Date Differs Date of service: 09/10/18 Time of Service: 12:01 LACE Index Scoring Tool - Questions: Length of Stay (in days): 14 or more Acuity (Admit via E.D.?): Yes Comorbidities: Chronic Pulmonary Disease E.D. Visits: 3 - Answers: Total Score: 15 Risk of Readmission: High Risk Care Management Discharge Reason for Hospitalization: Dementia, Inability to care for self. Discharge Plan: Mina will discharge to an [facility] home in [place] when placement arrangements are finalized. Anticipate Mina will discharge with no services and follow up with his PCP. Mina will transport via private vehicle with his guardian, Kya. Patient/Family Education Needs: Discharge education, any limitations, and follow up plan of care. Ask Me Three discussion. Services Needed at Discharge: Day Care ([facility], [facility]. )
== END 2018-09-10 12:39 | disposition home or self-care (01) | DRG 57 ==
PROVIDERS: Admitting Provider Family Medicine; PCP Internal Medicine; Visit Provider Internal Medicine
DX: Z68.1 Body mass index [BMI] 19.9 or less, adult (principal); G30.9 Alzheimer's disease, unspecified; F02.80 Dementia in other diseases classified elsewhere, unspecified severity, without behavioral disturbance, psychotic disturbance, mood disturbance, and anxiety; F01.50 Vascular dementia, unspecified severity, without behavioral disturbance, psychotic disturbance, mood disturbance, and anxiety; Z60.2 Problems related to living alone; J44.9 Chronic obstructive pulmonary disease, unspecified; I10 Essential (primary) hypertension; F17.210 Nicotine dependence, cigarettes, uncomplicated; I73.9 Peripheral vascular disease, unspecified; E78.00 Pure hypercholesterolemia, unspecified; Z71.3 Dietary counseling and surveillance
CPT/HCPCS: 94640; 99232; 99308; 99309; 99315; 71046; 99306; J3490; J7620

== ENCOUNTER 2018-09-16 18:17 | Emergency (ER) | payer MEDICARE, MEDICAID, SELFPAY ==
[2018-09-16 18:34] VITALS: BP 152/105; PULSE 80; RESP 16; TEMP 36.8; O2SAT 98
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
--- NOTE | 2018-09-16 21:50 | PDOC.ERCMPRO ---
- If Service Date Differs Date of service: 09/16/18 Time of Service: 21:50 Care Management Progress Note CM notified patient arrived to the ED brought in by family nursing home. Report received that the family is unwilling to take patient home as they are unable to care for him per report. Family left before provider could meet with them. CM contacted Kya Munson Pt guardian. She is aware and has contacted [facility]?s concession manager through adult services at [facility]. [facility] does not have a home to discharge to at this time and does not have a medical reason to be admitted to the hospital. CM advised [facility] should be admitted to [facility] to await placement. Kya agrees to [facility] as well as provider. CM contacted supervisor mirror fabrication to review the plan. CM received a return call from supervisor mirror fabrication who received information from security that [facility] has an outstanding warrant in [facility]. [facility] will need to be taken into custody tonight by the state police. CM contacted guardian again as well as the security on duty. CM informed officer of patients diagnosis of advance dementia and the appointed guardianship. CM contacted Risk management and reviewed the case. It was determined that [facility] has an active warrant and has no medical reason to be admitted to the hospital and will be taken into custody by [facility]. CM contacted Kya and requested she be present during discharge she refused. Kya was advised of the plan and is aware [facility] will be discharge into custody of [facility]. CM reviewed with supervisor mirror fabrication, risk management, guardian, security controls assessor and provider.
--- NOTE | 2018-09-16 22:15 | CMPROGNOTE_ITS ---
- If Service Date Differs Date of service: 09/16/18 Time of Service: 21:50 Care Management Progress Note CM notified patient arrived to the ED brought in by family half-way. Report received that the family is unwilling to take patient home as they are unable to care for him per report. Family left before provider could meet with them. CM contacted Kya Munson Pt guardian. She is aware and has contacted [facility]?s regional ehs manager through adult services at [facility]. [facility] does not have a home to discharge to at this time and does not have a medical reason to be admitted to the hospital. CM advised [facility] should be admitted to [facility] to await placement. Kya agrees to [facility] as well as provider. CM contacted supervisor cytology to review the plan. CM received a return call from supervisor cytology who received information from security that [facility] has an outstanding warrant in [facility]. [facility] will need to be taken into custody tonight by the state police. CM contacted guardian again as well as the security on duty. CM informed officer of patients diagnosis of advance dementia and the appointed guardianship. CM contacted Risk management and reviewed the case. It was determined that [facility] has an active warrant and has no medical reason to be admitted to the hospital and will be taken into custody by [facility]. CM contacted Kya and requested she be present during discharge she refused. Kya was advised of the plan and is aware [facility] will be discharge into custody of [facility]. CM reviewed with supervisor cytology, risk management, guardian, computer security specialist and provider.
[2018-09-16 22:22] VITALS: BP 124/70; PULSE 72; RESP 15; RESP 18; TEMP 36.8; O2SAT 98
--- NOTE | 2018-09-16 22:32 | NUR.NOTE ---
Nursing Note: Patient discharged to [facility] after medical clearance by provider and collaboration with director medicare sales, quality improvement, and regulatory consultant administration. Report given by provider to receiving facility nurse. Patient aware, cooperative with discharge with Edward L[facility]pez. Arrangements for discharge plan made by rooming house operator, provider with input from those listed above.
== END 2018-09-16 22:27 | disposition home or self-care (01) ==
PROVIDERS: Emergency Provider Nurse Practitioner Family; PCP Internal Medicine
DX: I10 Essential (primary) hypertension (principal); R41.82 Altered mental status, unspecified; R41.3 Other amnesia; J44.9 Chronic obstructive pulmonary disease, unspecified
CPT/HCPCS: 99285; 99283

== ENCOUNTER → 2020-03-24 12:18 | Outpatient (BNVA) | payer MEDICARE, MEDICAID, SELFPAY | PROVIDERS: PCP Internal Medicine; Referring Provider Family Medicine; Visit Provider Nurse Practitioner Adult Health | DX: F03.91 Unspecified dementia, unspecified severity, with behavioral disturbance (principal); J44.9 Chronic obstructive pulmonary disease, unspecified; I10 Essential (primary) hypertension; Z87.891 Personal history of nicotine dependence | CPT/HCPCS: 99204; 99215 ==

== ENCOUNTER → 2020-06-22 09:23 | Outpatient (BNVA) | payer MEDICARE, MEDICAID, SELFPAY | PROVIDERS: PCP Internal Medicine; Referring Provider Internal Medicine; Visit Provider Nurse Practitioner Adult Health | DX: G25.0 Essential tremor (principal); G30.9 Alzheimer's disease, unspecified; F02.80 Dementia in other diseases classified elsewhere, unspecified severity, without behavioral disturbance, psychotic disturbance, mood disturbance, and anxiety; J44.9 Chronic obstructive pulmonary disease, unspecified; Z87.891 Personal history of nicotine dependence; I10 Essential (primary) hypertension | CPT/HCPCS: 99213 ==

== ENCOUNTER → 2020-09-22 13:05 | Outpatient (BNVA) | payer MEDICARE, MEDICAID, SELFPAY | PROVIDERS: PCP Internal Medicine; Referring Provider Internal Medicine; Visit Provider Nurse Practitioner Adult Health | DX: G30.9 Alzheimer's disease, unspecified (principal); F02.80 Dementia in other diseases classified elsewhere, unspecified severity, without behavioral disturbance, psychotic disturbance, mood disturbance, and anxiety | CPT/HCPCS: 99213; 99442 ==

== ENCOUNTER → 2020-10-12 12:26 | Outpatient (BNVA) | payer MEDICARE, MEDICAID, SELFPAY | PROVIDERS: PCP Internal Medicine; Referring Provider Internal Medicine; Visit Provider Nurse Practitioner Adult Health | DX: G30.1 Alzheimer's disease with late onset (principal); F02.80 Dementia in other diseases classified elsewhere, unspecified severity, without behavioral disturbance, psychotic disturbance, mood disturbance, and anxiety; J44.9 Chronic obstructive pulmonary disease, unspecified; Z87.891 Personal history of nicotine dependence; I10 Essential (primary) hypertension | CPT/HCPCS: 99212; 99441 ==

== ENCOUNTER → 2021-01-12 07:29 | Outpatient (BNVA) | payer MEDICARE, MEDICAID, SELFPAY | PROVIDERS: PCP Internal Medicine; Referring Provider Internal Medicine; Visit Provider Nurse Practitioner Adult Health | DX: G30.9 Alzheimer's disease, unspecified (principal); F02.80 Dementia in other diseases classified elsewhere, unspecified severity, without behavioral disturbance, psychotic disturbance, mood disturbance, and anxiety | CPT/HCPCS: 99214; 99443 ==